=== PATIENT | male | born 1955 | race American Indian/Alaskan Native ===

== ENCOUNTER 2016-12-29 22:16 | Emergency (ER) | payer OTHER ==
[2016-12-29 23:21] LABS: Anion Gap 21 mmol/L; Basophils % (Auto) 0.2 % (0.0-1.8); Blood Urea Nitrogen 16 mg/dL (9-20); Calcium 9.4 mg/dL (8.4-10.2); Carbon Dioxide 23 mmol/L (22-30); Chloride 103.2 mmol/L (98-107); Eosinophils % (Auto) 3.4 % (0.0-4.3); Glucose 111 mg/dL (75-100); Hematocrit 40.1 % (35.5-45.6); Hemoglobin 13.4 gm/dl (11.8-15.2); Mean Corpuscular HGB Conc 33 % (32-34); Mean Corpuscular Hemoglobin 29 pg (28-32); Mean Corpuscular Volume 88 fl (84-94); Platelet Count 313 K/mm3 (140-440); Potassium 3.5 mmol/L (3.6-5.0); Red Blood Count 4.56 M/mm3 (3.65-5.03); Sodium 144 mmol/L (137-145); White Blood Count 8.2 K/mm3 (4.5-11.0)
[2016-12-30] MEDS ORDERED: TORADOL IM ONE (03:26)
[2016-12-30] MEDS ORDERED: NORCO 7.5/325 PO ONE (03:27)
--- NOTE | 2016-12-30 04:22 | Emergency Department Report ---
ED Extremity Problem HPI - General Chief complaint: Extremity Problem,Nontraumatic Stated complaint: LEFT KNEE PAIN/SWOLLEN Time Seen by Provider: 12/30/16 03:23 Source: patient Mode of arrival: Wheelchair Limitations: No Limitations - History of Present Illness Initial comments: 61-year-old -[place] male with a past medical history of hypertension comes in today for complaint of left knee swollen and pain for about 8 days. Patient denies any falls or energy injuries. Patient denies any history of kidney failure. He reports that he has a history of gout and feels that this is flareup. Patient is followed by Dr. Fernanda Araya. Complaint: extremity pain, extremity swelling, joint paint - Related Data Previous Rx's Medication Instructions Recorded Last Taken Type Atenolol [Tenormin] 100 mg PO DAILY #30 tablet 03/27/15 Unknown Rx Lisinopril [Zestril TAB] 40 mg PO QDAY #30 tablet 03/27/15 Unknown Rx amLODIPine [Norvasc] 10 mg PO DAILY #30 tablet 03/27/15 Unknown Rx Indomethacin 50 mg PO Q8H #15 capsule 12/30/16 Unknown Rx Prednisone [predniSONE 5 mg (6-Day 5 mg PO .TAPER #1 tab.ds.pk 12/30/16 Unknown Rx Pack, 21 Tabs)] Allergies Allergy/AdvReac Type Severity Reaction Status Date / Time No Known Allergies Allergy Unverified 03/27/15 12:05 ED Review of Systems ROS: Stated complaint: LEFT KNEE PAIN/SWOLLEN Other details as noted in HPI Constitutional: denies: chills, fever Eyes: denies: eye pain, eye discharge, vision change ENT: denies: ear pain, throat pain Respiratory: denies: cough, shortness of breath, wheezing Cardiovascular: denies: chest pain, palpitations Endocrine: no symptoms reported Gastrointestinal: denies: abdominal pain, nausea, diarrhea Genitourinary: as per HPI Musculoskeletal: joint swelling (left knee), arthralgia (left knee) Skin: denies: rash, lesions Neurological: denies: headache, weakness, paresthesias Psychiatric: denies: anxiety, depression Hematological/Lymphatic: denies: easy bleeding, easy bruising ED Past Medical Hx - Past Medical History Previous Medical History?: Yes Hx Hypertension: Yes - Surgical History Past Surgical History?: No - Social History Smoking Status: Never Smoker Substance Use Type: None - Medications Home Medications: Home Medications Medication Instructions Recorded Confirmed Last Taken Type Atenolol [Tenormin] 100 mg PO DAILY #30 tablet 03/27/15 Unknown Rx Lisinopril [Zestril TAB] 40 mg PO QDAY #30 tablet 03/27/15 Unknown Rx amLODIPine [Norvasc] 10 mg PO DAILY #30 tablet 03/27/15 Unknown Rx Indomethacin 50 mg PO Q8H #15 capsule 12/30/16 Unknown Rx Prednisone [predniSONE 5 mg (6-Day 5 mg PO .TAPER #1 tab.ds.pk 12/30/16 Unknown Rx Pack, 21 Tabs)] ED Physical Exam - General Limitations: No Limitations ED Course Vital Signs 12/29/16 22:34 Temperature 98.7 F Pulse Rate 95 H Respiratory 18 Rate Blood Pressure 164/108 O2 Sat by Pulse 100 Oximetry - Reevaluation(s) Reevaluation #1: 12/30/16 05:17 Reports he feels some relief since having the Toradol injection. ED Medical Decision Making - Lab Data Result diagrams: 12/29/16 22:45 12/29/16 22:45 - Radiology Data Radiology results: report reviewed, image reviewed FINDINGS: There is a small joint effusion. There is advanced degenerative arthrosis of the medial knee compartment and the patellofemoral joint space. There are no fractures or malalignments. There is prepatellar soft tissue swelling. There is no mass. IMPRESSION: There are degenerative changes as described. There is no fracture or malalignment. There is prepatellar soft tissue swelling and a small joint effusion.. Transcribed By: CO Dictated By: LYNNETTE RODRIGUEZ MD Electronically Authenticated By: LYNNETTE RODRIGUEZ MD Signed Date/Time: 12/30/16 0579 - Medical Decision Making Patient has been evaluated by this provider fast track. Discussed patient this is most likely a gout flareup. Also discussed with patient that he has bilateral lower leg edema this also could be a side effect of his medications are Norvasc. Discussed with patient that he needs to speak with his healthcare provider for further evaluation. Also discussed the patient that we would give him a Toradol injection to help with his pain and as well as a [place]. Discussed the patient that we would discharge him on indomethacin 50 mg 1 tablet by mouth 3 times a day when necessary. Discussed with him we will place him on a prednisone taper pack. He is to follow-up with his primary care doctor within 3-5 days. Critical care attestation.: If time is entered above; I have spent that time in minutes in the direct care of this critically ill patient, excluding procedure time. ED Disposition Clinical Impression: Gout attack Qualifiers: Gout site: knee Gout etiology: unspecified cause Laterality: left Qualified Code(s): M10.9 - Gout, unspecified Disposition: DISCHARGED TO HOME OR SELFCARE Is pt being admited?: No Does the pt Need Aspirin: No Condition: Stable Instructions: Acute Gouty Arthritis (ED) Additional Instructions: Please take medication as prescribed. Please follow up with her primary care provider within 3-5 days. Prescriptions: Indomethacin 50 mg PO Q8H #15 capsule Prednisone [predniSONE 5 mg (6-Day Pack, 21 Tabs)] 5 mg PO .TAPER #1 tab.ds.pk Referrals: PRIMARY CARE, [Primary Care Provider] - 3-5 Days Forms: Work/School Release Form(ED), Accompanied Note
[2016-12-30] MEDS ORDERED: DELTASONE PO ONE (04:28)
--- NOTE | 2016-12-30 05:13 | XRay Report ---
FINAL REPORT PROCEDURE: XR KNEE 3V LT TECHNIQUE: Left knee radiographs, AP, lateral and sunrise views. CPT 93894 HISTORY: left knee pain COMPARISON: No prior studies are available for comparison. FINDINGS: There is a small joint effusion. There is advanced degenerative arthrosis of the medial knee compartment and the patellofemoral joint space. There are no fractures or malalignments. There is prepatellar soft tissue swelling. There is no mass. IMPRESSION: There are degenerative changes as described. There is no fracture or malalignment. There is prepatellar soft tissue swelling and a small joint effusion..
[2016-12-30 05:58] VITALS: BP 160/106
== END 2016-12-30 05:30 | disposition home or self-care (01) ==
LOC: ED 22:16
DX: M10.9 Gout, unspecified (principal); I10 Essential (primary) hypertension
CPT/HCPCS: 36415; 73562; 80048; 85025; 96372; 99284; J1885; J7512

== ENCOUNTER 2017-05-18 22:18 | Emergency (ER) | payer OTHER ==
--- NOTE | 2017-05-18 23:32 | XRay Report ---
FINAL REPORT EXAM: XR KNEE 1-2V LT HISTORY: LEFT KNEE PAIN TECHNIQUE: Two views of the left knee PRIORS: None. FINDINGS: There is tricompartmental joint space narrowing. There is subluxation of the femur medially. There is some cortical lucency seen along the lateral aspect of the tibial plateau. Could be overlap of bony structures however fracture is difficult to exclude. If there is clinical concern consider additional oblique and tunnel views which may be helpful for further evaluation. There is small joint effusion present IMPRESSION: Moderate to severe DJD Questionable irregularity at the lateral tibial plateau. If clinical concern additional oblique and tunnel views suggested for further evaluation
[2017-05-19] MEDS ORDERED: TORADOL IM ONE (05:52)
[2017-05-19] MEDS ORDERED: FLEXERIL PO ONE (05:52)
--- NOTE | 2017-05-19 05:54 | Emergency Department Report ---
HPI - General Chief Complaint: Extremity Problem,Nontraumatic Time Seen by Provider: 05/19/17 05:43 - HPI HPI: Patient is a 62-year-old male with a history of arthritis/gout presents to ED complaining of left knee pain 10 days. Patient states he did not fall or have any recent trauma to the leg and knee. ED Past Medical Hx - Past Medical History Previous Medical History?: Yes Hx Hypertension: Yes - Surgical History Past Surgical History?: No - Social History Smoking Status: Never Smoker Substance Use Type: None - Medications Home Medications: Home Medications Medication Instructions Recorded Confirmed Last Taken Type Atenolol [Tenormin] 100 mg PO DAILY #30 tablet 03/27/15 Unknown Rx Lisinopril [Zestril TAB] 40 mg PO QDAY #30 tablet 03/27/15 Unknown Rx amLODIPine [Norvasc] 10 mg PO DAILY #30 tablet 03/27/15 Unknown Rx Prednisone [predniSONE 5 mg (6-Day 5 mg PO .TAPER #1 tab.ds.pk 12/30/16 Unknown Rx Pack, 21 Tabs)] Celecoxib [celeBREX] 50 mg PO BID #30 capsule 05/19/17 Unknown Rx Cyclobenzaprine [Flexeril] 10 mg PO TID PRN #20 tablet 05/19/17 Unknown Rx Indomethacin 50 mg PO Q8H #15 capsule 05/19/17 Unknown Rx ED Review of Systems ROS: Stated complaint: L KNEE SWOLLEN Other details as noted in HPI Constitutional: denies: chills, fever Eyes: denies: eye pain, eye discharge, vision change ENT: denies: ear pain, throat pain Respiratory: denies: cough, shortness of breath, wheezing Cardiovascular: denies: chest pain, palpitations Endocrine: no symptoms reported Gastrointestinal: denies: abdominal pain, nausea, diarrhea Genitourinary: denies: urgency, dysuria Musculoskeletal: denies: back pain, joint swelling, arthralgia Skin: denies: rash, lesions Neurological: denies: headache, weakness, paresthesias Psychiatric: denies: anxiety, depression Hematological/Lymphatic: denies: easy bleeding, easy bruising Physical Exam - Physical Exam Vital Signs: Vital Signs 05/18/17 22:24 Temperature 98.1 F Pulse Rate 74 Respiratory 20 Rate Blood Pressure 168/98 O2 Sat by Pulse 100 Oximetry Physical Exam: GENERAL: Alert and oriented x3, no apparent distress, Normal Gait, atraumatic. HEAD: Head is normocephalic and a-traumatic. NECK: Supple. Non edematous, No carotid bruits. No lymphadenopathy or thyromegaly. No C-spine tenderness LUNGS: Symetrical with respiration, No wheezing, no rales or crackles, CTAB. HEART: S1, S2 present, regular rate and rhythm without murmur, no rubs, no gallops. Non tender to palpation ABDOMEN: No organomegaly was noted,Positive bowel sounds, soft, and non- distended. .Nontender to palpation on all Quadrants, NO CVA tenderness. EXTREMITIES/MUSCULOSKELETAL: No cyanosis, clubbing, rash, lesions or edema. Full ROM bilaterally. Left knee mildly tender to palpation UE/LE Pulses 2+ bilaterally. LE and UE 5+ strength bilaterally, NEUROLOGIC: The patient is cooperative with no focal neurologic deficits. Cranial nerves II through XII are grossly intact. Normal speech. Normal sensation in bilateral upper and lower extremities, No loss of sensation, SKIN: Warm and dry, No lesions, No ulceration or induration present. ED Course Vital Signs 05/18/17 22:24 Temperature 98.1 F Pulse Rate 74 Respiratory 20 Rate Blood Pressure 168/98 O2 Sat by Pulse 100 Oximetry ED Medical Decision Making - Radiology Data Radiology results: report reviewed, image reviewed FINAL REPORT EXAM: XR KNEE 1-2V LT HISTORY: LEFT KNEE PAIN TECHNIQUE: Two views of the left knee PRIORS: None. FINDINGS: There is tricompartmental joint space narrowing. There is subluxation of the femur medially. There is some cortical lucency seen along the lateral aspect of the tibial plateau. Could be overlap of bony structures however fracture is difficult to exclude. If there is clinical concern consider additional oblique and tunnel views which may be helpful for further evaluation. There is small joint effusion present IMPRESSION: Moderate to severe DJD Questionable irregularity at the lateral tibial plateau. If clinical concern additional oblique and tunnel views suggested for further evaluation Critical care attestation.: If time is entered above; I have spent that time in minutes in the direct care of this critically ill patient, excluding procedure time. ED Disposition Clinical Impression: Osteoarthritis Qualifiers: Laterality: left Disposition: DC-01 TO HOME OR SELFCARE Is pt being admited?: No Does the pt Need Aspirin: No Condition: Stable Instructions: Degenerative Disc Disease (ED), Osteoarthritis (ED), Knee Exercises (GEN), Arthralgia (ED) Prescriptions: Celecoxib [celeBREX] 50 mg PO BID #30 capsule Cyclobenzaprine [Flexeril] 10 mg PO TID PRN #20 tablet PRN Reason: Muscle Spasm Indomethacin 50 mg PO Q8H #15 capsule Referrals: PRIMARY CAREMD [Primary Care Provider] - 3-5 Days PIETRO NEGRON MD [Referring] - 3-5 Days [facility] [Outside] - 3-5 Days [facility] [Outside] - 3-5 Days [facility] [Outside] - 3-5 Days Forms: Accompanied Note, Work/School Release Form(ED) Time of Disposition: 05:58
[2017-05-19 06:39] VITALS: BP 158/98
== END 2017-05-19 06:32 | disposition home or self-care (01) ==
LOC: ED 22:18
DX: M17.12 Unilateral primary osteoarthritis, left knee (principal); I10 Essential (primary) hypertension
CPT/HCPCS: 73560; 96372; 99283; J1885

== ENCOUNTER 2019-12-21 19:16 | Inpatient (IN) | payer OTHER ==
[2019-12-21] MEDS ORDERED: SODIUM CHLORIDE 0.9% 1000 ML 1,000 ML ONE ×2 (20:15→23:59)
--- NOTE | 2019-12-21 20:17 | Emergency Department Report ---
ED Shortness of Breath HPI - General Chief Complaint: Dyspnea/Respdistress Stated Complaint: GOUT PAIN Time Seen by Provider: 12/21/19 20:09 Source: patient, EMS Mode of arrival: Stretcher Limitations: No Limitations - History of Present Illness Initial Comments: A 64-year-old male that presents emergency room with complaints of chest pain shortness of breath. Patient states that the chest pain is from the center of his chest radiating to his back. Patient states the chest pain is a 10 out of 10. Pain states is sharp pain. Patient states it is rating to his back. Patient states the chest pain is better with rest and worse with exertion and de ep breath. Patient states that his symptoms started 1 hour ago. Patient denies fever and cough. Patient denies diarrhea. Patient states shortness of breath better with rest and worse with exertion. Patient states he feel like he cannot catch his breath. Patient is also complaining of bilateral knee and foot pain which he states feels like his gout. Patient states that his been going on for months. Patient denies recent travel. Patient denies recent international travel. Patient denies exposure to the novel coronavirus. Patient denies sick contacts. Patient denies fever and chills. Patient denies cough. Patient denies diarrhea. Patient denies coming in contact with anybody with symptoms of the novel coronavirus. MD Complaint: shortness of breath, cough, chest pain -: Sudden Severity: severe Pain Scale: 10 Quality: sharp, stabbing Consistency: constant Improves With: rest Worsens With: exertion Associated Symptoms: chest pain Treatments Prior to Arrival: none - Related Data Home Oxygen Therapy: No Previous Rx's Medication Instructions Recorded Last Taken Type Atenolol [Tenormin] 100 mg PO DAILY #30 tablet 03/27/15 Unknown Rx amLODIPine 10 mg PO DAILY #30 tablet 03/27/15 Unknown Rx lisinopriL [Zestril TAB] 40 mg PO QDAY #30 tablet 03/27/15 Unknown Rx Prednisone [predniSONE 5 mg (6-Day 5 mg PO .TAPER #1 tab.ds.pk 12/30/16 Unknown Rx Pack, 21 Tabs)] Celecoxib [celeBREX] 50 mg PO BID #30 capsule 05/19/17 Unknown Rx Cyclobenzaprine [Flexeril] 10 mg PO TID PRN #20 tablet 05/19/17 Unknown Rx Indomethacin 50 mg PO Q8H #15 capsule 05/19/17 Unknown Rx Allergies Allergy/AdvReac Type Severity Reaction Status Date / Time No Known Allergies Allergy Unverified 03/27/15 12:05 ED Review of Systems ROS: Stated complaint: GOUT PAIN Other details as noted in HPI Constitutional: denies: chills, fever Eyes: denies: eye pain, eye discharge, vision change ENT: denies: ear pain, throat pain Respiratory: shortness of breath, SOB with exertion, SOB at rest. denies: cough, wheezing Cardiovascular: chest pain, palpitations, dyspnea on exertion Endocrine: no symptoms reported Gastrointestinal: denies: abdominal pain, nausea, diarrhea Genitourinary: denies: urgency, dysuria Musculoskeletal: denies: back pain, joint swelling, arthralgia Skin: denies: rash, lesions Neurological: denies: headache, weakness, paresthesias Psychiatric: denies: anxiety, depression Hematological/Lymphatic: denies: easy bleeding, easy bruising ED Past Medical Hx - Past Medical History Hx Hypertension: Yes Additional medical history: gout - Surgical History Past Surgical History?: No - Family History Family history: no significant - Social History Smoking Status: Never Smoker Substance Use Type: None - Medications Home Medications: Home Medications Medication Instructions Recorded Confirmed Last Taken Type Atenolol [Tenormin] 100 mg PO DAILY #30 tablet 03/27/15 Unknown Rx amLODIPine 10 mg PO DAILY #30 tablet 03/27/15 Unknown Rx lisinopriL [Zestril TAB] 40 mg PO QDAY #30 tablet 03/27/15 Unknown Rx Prednisone [predniSONE 5 mg (6-Day 5 mg PO .TAPER #1 tab.ds.pk 12/30/16 Unknown Rx Pack, 21 Tabs)] Celecoxib [celeBREX] 50 mg PO BID #30 capsule 05/19/17 Unknown Rx Cyclobenzaprine [Flexeril] 10 mg PO TID PRN #20 tablet 05/19/17 Unknown Rx Indomethacin 50 mg PO Q8H #15 capsule 05/19/17 Unknown Rx ED Physical Exam - General Limitations: No Limitations General appearance: alert, in distress - Head Head exam: Present: atraumatic, normocephalic - Eye Eye exam: Present: normal appearance, PERRL Pupils: Present: normal accommodation - ENT ENT exam: Present: mucous membranes dry - Neck Neck exam: Present: normal inspection - Respiratory Respiratory exam: Present: respiratory distress, accessory muscle use, decreased breath sounds - Cardiovascular Cardiovascular Exam: Present: regular rate, normal rhythm. Absent: systolic murmur, diastolic murmur, rubs, gallop - GI/Abdominal GI/Abdominal exam: Present: soft, normal bowel sounds. Absent: distended, tenderness - Rectal Rectal exam: Present: deferred - Extremities Exam Extremities exam: Present: normal inspection - Back Exam Back exam: Present: normal inspection - Neurological Exam Neurological exam: Present: alert, oriented X3 - Psychiatric Psychiatric exam: Present: normal affect, normal mood - Skin Skin exam: Present: warm, dry, intact, normal color. Absent: rash ED Course Vital Signs 12/21/19 12/21/19 19:42 20:20 Temperature 97.7 F Pulse Rate 128 H Respiratory 26 H 26 H Rate Blood Pressure 113/81 O2 Sat by Pulse 92 98 Oximetry - Reevaluation(s) Reevaluation #1: Initial evaluation done. Patient found to be hypoxic, hypotensive and tachycardic. Patient given fluids. 12/21/19 20:09 Reevaluation #2: Patient's blood pressure improved with saline bolus. Patient's heart rate is improving. Patient's saturation has improved with 4 L of oxygen. Patient is already been given aspirin. 12/21/19 20:30 Reevaluation #3: Patient back from CT. CTA is pending. 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 Patient states she still having chest pain. 12/21/19 21:30 Reevaluation #4: CT positive for large pulmonary embolisms along with right heart strain. Patient will be started on a heparin drip with a heparin bolus. Patient states he still having chest pain. Patient will be given 1 mg morphine. 12/21/19 21:59 Reevaluation #5: I discussed all results with patient. I discussed plan of care with patient. Patient agrees with plan of care and admission. Patient to be admitted to the hospitalist service. 12/21/19 22:32 - Consultations Consultation #1: I discussed case labs with Dr. Joyce, fur storage clerk. Dr. Joyce states this is an end STEMI and there is no STEMI on the EKG. Dr. Joyce agrees with CTA of the chest and heparinizing the patient. 12/21/19 21:28 Consultation #2: I discussed case with Dr. Hernandez, vascular surgery. Dr. Hernandez states he will come see the patient. 12/21/19 22:23 Consultation #3: Hospitalist consulted for admission. Hospitalist to admit patient. 12/21/19 22:32 ED Medical Decision Making - Lab Data Result diagrams: 12/21/19 20:29 12/21/19 20:29 - EKG Data -: EKG Interpreted by Me EKG shows normal: sinus rhythm, axis, intervals, QRS complexes, ST-T waves Rate: tachycardia - EKG Data Interpretation: other (PVCs noted in a pattern of bigeminy and trigeminy) - Radiology Data Radiology results: report reviewed, image reviewed interpreted by me: CHEST 1 VIEW INDICATION / CLINICAL INFORMATION: Chest Pain. COMPARISON: None available. FINDINGS: SUPPORT DEVICES: None. HEART / MEDIASTINUM: Mild cardiomegaly. LUNGS / PLEURA: No significant pulmonary or pleural abnormality. No pneumothorax. IMPRESSION: Mild cardiomegaly. The lungs are clear. CTA CHEST WITH IV CONTRAST INDICATION / CLINICAL INFORMATION: Chest pain and shortness of breath. TECHNIQUE: Axial CT images were obtained through the chest after injection of 60 mL Omnipaque 350 IV contrast. 3 plane MIP and/or 3D reconstructions were produced. All CT scans at this location are performed using CT dose reduction for ALARA by means of automated exposure control. COMPARISON: Chest radiograph from earlier today FINDINGS: PULMONARY ARTERIES: Massive bilateral pulmonary emboli branching from the right and left main pulmonary arteries into all lobar arteries and multiple segmental and subsegmental branches. THORACIC AORTA: No significant abnormality. HEART: Normal heart size. RV/LV ratio is greater than 1 and the right atrium is mildly dilated, suggestive of acute right heart strain. CORONARY ARTERIES: No significant calcification. PLEURA: No pleural effusion. No pneumothorax. LYMPH NODES: No adenopathy. LUNGS: No acute air space or interstitial disease. ADDITIONAL FINDINGS: None. UPPER ABDOMEN: Multiple renal cystic lesions, some incompletely imaged. Nono bstructing calculus in a lower pole calyx of the right kidney. Mild peripancreatic stranding around the head, poorly demonstrated on this exam due to coronary angiographic phase of image acquisiti on. Gallbladder wall appears thickened, but there is no abnormal distention. No calcified gallston es. SKELETAL STRUCTURES: No significant osseous abnormality. IMPRESSION: 1. Massive acute bilateral pulmonary thromboembolism with CT evidence of right heart strain. 2. Mild stranding around the peripancreatic head, nonspecific, but correlation with serum lipase is recommended. 3. Nonobstructing right renal calculus at the lower pole. CT ABDOMEN AND PELVIS WITHOUT CONTRAST INDICATION: History of pulmonary embolism. Abnormal pancreatic enzymes. Abdominal pain. TECHNICAL: Multiple axial CT images of the abdomen and pelvis were acquired without intravenous contrast. Sagittal and coronal reformats were obtained. All CTs at this facility utilize dose reduction techniques including automated exposure control, iterative reconstruction and weight based dosing when appropriate to reduce patient radiation dose to as low as reasonable achievable. COMPARISON: CTA of the chest, 12/21/2019 FINDINGS: Limited imaging of the bilateral lung bases demonstrates no focal abnormality. The base of the heart is enlarged. Abdomen: There is moderate generalized peripancreatic inflammatory stranding the gallbladder is difficult to assess on today's noncontrast study, however, there is suspicion of inflammatory c hanges extending to the gallbladder fossa. Within the limitations of today's noncontrast study, the liver, spleen and bilateral kidneys show no evidence of acute abnormality. There are numerous bilateral renal cysts. The abdominal aorta appears normal in caliber with minimal scattered atherosclerotic calcified. The small and large bowel are normal in caliber. There is no evidence of bowel obstruction. The appendix is visualized and appears normal. Pelvis: There is a small to moderate amount of free fluid within the office. Moderate sigmoid diverticulosis is noted without definitive evidence for diverticulitis. The urinary bladder appears normal. There is a trace amount of contrast material within the urinary bladder from recent contrasted study. Bones and Soft Tissues: Evaluation of bony structures demonstrates advanced degenerative changes of the left hip and the thoracolumbar spine. Evaluation of soft tissue structures demonstrates no acute soft tissue abnormality. IMPRESSION: 1. Moderate peripancreatic inflammatory changes concerning for pancreatitis. There is also suggestion of gallbladder wall thickening and inflammatory change. While this could be secondary to pancreatitis, it would be difficult to exclude the possibility of acute cholecystitis. No radiodense gallstones are visualized. 2. Small to moderate amount of free pelvic fluid 3. Sigmoid diverticulosis. 4. Multiple renal cysts. - Medical Decision Making Patient is a 64-year-old male that presents emergency room with complaints of chest pain or shortness of breath. Patient's chest pain is radiating to his back. On initial evaluation patient was found to be hypoxic, hypotensive and tachycardic. Patient was given fluids and his blood pressure responded well. Patient placed on nasal cannula oxygen his oxygenation improved. Patient's heart rate improved with fluids. Due to the patient's clinical situation I consulted cardiology early in his ER stay and cardiology recommends medical management and no STEMI on EKG. Patient then had a CTA of the chest. CTA is negative for any dissection but is positive for large pulmonary embolisms with right heart strain. Incidental findings on the CTA of the chest showed pancreatic abnormality and thickening of the gallbladder, so a CT of the abdomen was done. I then consulted vascular surgery and Dr. Hernandez states he is going to call him to see the patient. Patient had several abnormalities on his labs to include elevated troponin, acute renal failure, lactic acidosis. Patient was placed on a heparin drip and a heparin bolus. Patient EKG shows sinus tachycardia, no STEMI, PVCs and a trigeminy and bigeminy pattern. Patient's chest x-ray shows no acute findings of her mild cardiomegaly. CT of the abdomen shows pancreatitis and gallbladder thickening. Patient admitted to the hospitalist service and into the ICU. Patient will go to the ICU after patient has a cath by vascular surgery. - Differential Diagnosis PE, dissection, and STEMI, chest pain, S OB, hypoxia, low BP Critical Care Time: Yes Critical care time in (mins) excluding proc time.: 35 Critical care attestation.: If time is entered above; I have spent that time in minutes in the direct care of this critically ill patient, excluding procedure time. Critical Care Time: 35 minutes ED Disposition Clinical Impression: Hypoxia, Tachycardia, SOB (shortness of breath), Elevated troponin, Lactic acid acidosis, Thickening of wall of gallbladder Hypotension Qualifiers: Hypotension type: unspecified hypotension type Qualified Code(s): I95.9 - Hypotension, unspecified Chest pain Qualifiers: Chest pain type: unspecified Qualified Code(s): R07.9 - Chest pain, unspecified Pulmonary emboli Qualifiers: Pulmonary embolism type: unspecified Chronicity: acute Acute cor pulmonale presence: with acute cor pulmonale Qualified Code(s): I26.09 - Other pulmonary embolism with acute cor pulmonale Acute renal failure Qualifiers: Acute renal failure type: unspecified Qualified Code(s): N17.9 - Acute kidney failure, unspecified Pancreatitis Qualifiers: Chronicity: acute Pancreatitis type: unspecified pancreatitis type Acute pancreatitis complication: no infection or necrosis Qualified Code(s): K85.90 - Acute pancreatitis without necrosis or infection, unspecified Disposition: DC-[id number] OP ADMIT IP TO THIS HOSP Is pt being admited?: Yes Does the pt Need Aspirin: No Condition: Critical Time of Disposition: 22:32
[2019-12-21] MEDS ORDERED: ASPIRIN 325 MG TAB PO ONE (20:19)
[2019-12-21] MEDS ORDERED: SODIUM CHLORIDE 0.9% 1000 ML 1,000 ML IV ONE (20:19)
[2019-12-21] MEDS ORDERED: SODIUM CHLORIDE 0.9% 1000 ML IV SOLN IV ONE (20:28)
[2019-12-21] MEDS ORDERED: CEFEPIME/NS 2 GM/100 ML 2 GM/100 ML BAG IV ONE (20:29)
[2019-12-21 20:48] LABS: Basophils % (Auto) 0.1 % (0.0-1.8); Eosinophils % (Auto) 0.1 % (0.0-4.3); Hematocrit 36.7 % (35.5-45.6); Hemoglobin 11.5 gm/dl (11.8-15.2); Lymphocytes # (Auto) 1.7 K/mm3 (1.2-5.4); Lymphocytes % (Auto) 14.2 % (13.4-35.0); Mean Corpuscular HGB Conc 31 % (32-34); Mean Corpuscular Volume 89 fl (84-94); Monocytes # (Auto) 0.5 K/mm3 (0.0-0.8); Monocytes % (Auto) 4.5 % (0.0-7.3); Platelet Count 235 K/mm3 (140-440); Red Blood Count 4.11 M/mm3 (3.65-5.03); Red Cell Distribution Width 16.9 % (13.2-15.2)
[2019-12-21 21:00] LABS: Partial Thromboplastin Time 27.6 Sec. (24.2-36.6)
[2019-12-21 21:11] LABS: Albumin 3.6 g/dL (3.9-5); Calcium 9.4 mg/dL (8.4-10.2)
--- NOTE | 2019-12-21 21:36 | XRay Report ---
CHEST 1 VIEW INDICATION / CLINICAL INFORMATION: Chest Pain. COMPARISON: None available. FINDINGS: SUPPORT DEVICES: None. HEART / MEDIASTINUM: Mild cardiomegaly. LUNGS / PLEURA: No significant pulmonary or pleural abnormality. No pneumothorax. IMPRESSION: Mild cardiomegaly. The lungs are clear. Signer Name: Paul Fallon MD Signed: 12/21/2019 9:31 PM Workstation Name: [id number]
[2019-12-21] MEDS ORDERED: HEPARIN 10,000 UNITS/10 ML VIAL IV ONE (21:57)
[2019-12-21] MEDS ORDERED: MORPHINE 2 MG/1 ML INJ IV ONE (21:59)
[2019-12-21] MEDS ORDERED: HEPARIN/ 0.45% NACL DRIP 25,000 UNIT/500 ML BAG IV SCH (22:00)
--- NOTE | 2019-12-21 22:04 | Cat Scan Report ---
CTA CHEST WITH IV CONTRAST INDICATION / CLINICAL INFORMATION: Chest pain and shortness of breath. TECHNIQUE: Axial CT images were obtained through the chest after injection of 60 mL Omnipaque 350 IV contrast. 3 plane MIP and/or 3D reconstructions were produced. All CT scans at this location are performed using CT dose reduction for ALARA by means of automated exposure control. COMPARISON: Chest radiograph from earlier today FINDINGS: PULMONARY ARTERIES: Massive bilateral pulmonary emboli branching from the right and left main pulmona ry arteries into all lobar arteries and multiple segmental and subsegmental branches. THORACIC AORTA: No significant abnormality. HEART: Normal heart size. RV/LV ratio is greater than 1 and the right atrium is mildly dilated, sugge stive of acute right heart strain. CORONARY ARTERIES: No significant calcification. PLEURA: No pleural effusion. No pneumothorax. LYMPH NODES: No adenopathy. LUNGS: No acute air space or interstitial disease. ADDITIONAL FINDINGS: None. UPPER ABDOMEN: Multiple renal cystic lesions, some incompletely imaged. Nonobstructing calculus in a lower pole calyx of the right kidney. Mild peripancreatic stranding around the head, poorly demonstra weston on this exam due to coronary angiographic phase of image acquisition. Gallbladder wall appears th ickened, but there is no abnormal distention. No calcified gallstones. SKELETAL STRUCTURES: No significant osseous abnormality. IMPRESSION: 1. Massive acute bilateral pulmonary thromboembolism with CT evidence of right heart strain. 2. Mild stranding around the peripancreatic head, nonspecific, but correlation with serum lipase is recommended. 3. Nonobstructing right renal calculus at the lower pole. I discussed the critical findings with the referring physician Dr. Alvarado at the time of dictation. Signer Name: Paul Fallon MD Signed: 12/21/2019 10:00 PM Workstation Name: [id number]
[2019-12-21 22:10] LABS: INR 1.36 (0.87-1.13)
[2019-12-21] MEDS ORDERED: ONDANSETRON 4 MG/2 ML INJ IV PRN ×2 (23:12→23:44)
[2019-12-21] MEDS ORDERED: ACETAMINOPHEN 325 MG TAB PO PRN (23:12)
[2019-12-21] MEDS ORDERED: MORPHINE 2 MG/1 ML INJ IV PRN ×2 (23:12→23:44)
--- NOTE | 2019-12-21 23:14 | History and Physical Report ---
History of Present Illness History of present illness: 64-year-old man with a history of hypertension, gout comes emergency room with acute onset of shortness of breath today. Upon arrival he was complaining of chest pain to the emergency room physician however he denies having chest pain. He complains of abdominal pain in his mid abdomen which he describes as a dull pain, intermittent every 5 minutes, intensity 6/10, no radiation admits to nausea, no vomiting, diarrhea, fever, chills. He states that since October his legs have been swollen and painful, he saw his primary care physician and was given medication for symptoms but he cannot recall the name. He denies weight loss, recent travel, surgery, positive sedentary lifestyle. Patient was found to have massive pulmonary emboli for which he will be admitted for, vascular evaluation is pending Review Of Systems: Constitutional: no weight loss, fever, chills Ears, eyes, nose, mouth and throat: no nasal congestion, no nasal discharge, no sinus pressure, blurry vision, diplopia Neck: No neck pain or rigidity. Cardiovascular: No palpitations, chest pain Respiratory: No cough Gastrointestinal: No hematochezia Genitourinary : no dysuria, frequency Musculoskeletal: no muscle ache , joint pain Integumentary: no rash, no pruritis Neurological: no parathesias, focal weakness Endocrine: no cold or heat intolerance, no polyuria or polydipsia Hematologic/Lymphatic: no easy bruising, no easy bleeding, no gland swelling Allergic/Immunologic: no urticaria, no angioedema. PAST MEDICAL HISTORY: hypertension, gout PAST SURGICAL HISTORY: None SOCIAL HISTORY: Denies alcohol, tobacco, drugs FAMILY HISTORY: Hypertension Medications and Allergies Allergies Allergy/AdvReac Type Severity Reaction Status Date / Time No Known Allergies Allergy Unverified 03/27/15 12:05 Home Medications Medication Instructions Recorded Confirmed Last Taken Type Atenolol [Tenormin] 100 mg PO DAILY #30 tablet 03/27/15 12/22/19 Unknown Rx amLODIPine 10 mg PO DAILY #30 tablet 03/27/15 12/22/19 Unknown Rx lisinopriL [Zestril TAB] 40 mg PO QDAY #30 tablet 03/27/15 12/22/19 Unknown Rx Prednisone [predniSONE 5 mg (6-Day 5 mg PO .TAPER #1 tab.ds.pk 12/30/16 12/22/19 Unknown Rx Pack, 21 Tabs)] Celecoxib [celeBREX] 50 mg PO BID #30 capsule 05/19/17 12/22/19 Unknown Rx Cyclobenzaprine [Flexeril] 10 mg PO TID PRN #20 tablet 05/19/17 12/22/19 Unknown Rx Indomethacin 50 mg PO Q8H #15 capsule 05/19/17 12/22/19 Unknown Rx Active Meds: Active Medications Heparin Sodium/Sodium Chloride (Heparin/ 0.45% Nacl-25,000 Unit/500 Ml) 25,000 unit in 500 mls @ 30 mls/hr IV TITR ANGEL; Protocol Last Admin: 12/21/19 22:15 Dose: 1,500 units/hr, 30 mls/hr Documented by: Exam - Physical Exam Narrative exam: Gen. appearance: Patient lying in bed, no apparent distress HEENT: Normocephalic, atraumatic, pupils equally round and reactive to light, extraocular movement intact, and no sclericterus,. No JVD or thyromegaly or nodule,neck supple, no carotid bruit ,mucous membranes moist, no exudate or er ythema Heart: S1, S2, regular rate and rhythm Lungs: Clear bilaterally, breathing comfortable Abdomen: Positive bowel sounds, nontender, nondistended, no organomegaly Extremity: Tender to touch, swollen, no edema, cyanosis, clubbing Skin: No rash, nodules, warm, dry Neuro: Cranial nerves II to XII intact, speech is fluent, moves extremities, sensory intact - Constitutional Vitals: Temp Pulse Resp BP Pulse Ox 97.7 F 128 H 26 H 113/81 98 12/21/19 19:42 12/21/19 19:42 12/21/19 20:20 12/21/19 19:42 12/21/19 20:20 HEART Score - HEART Score Troponin: Troponin T 0.241 ng/mL (0.00-0.029) H* 12/21/19 20:29 Results - Labs CBC & Chem 7: 12/23/19 02:30 12/23/19 02:30 Labs: Abnormal lab results 12/21/19 12/21/19 12/21/19 Range/Units 20:19 20:29 20:29 WBC 12.1 H (4.5-11.0) K/mm3 Hgb 11.5 L (11.8-15.2) gm/dl MCHC 31 L (32-34) % RDW 16.9 H (13.2-15.2) % Seg Neutrophils % 81.1 H (40.0-70.0) % Seg Neutrophils # 9.8 H (1.8-7.7) K/mm3 PT (12.2-14.9) Sec. INR (0.87-1.13) D-Dimer > 83881 H (0-234) ng/mlDDU Potassium (3.6-5.0) mmol/L Carbon Dioxide (22-30) mmol/L Creatinine (0.8-1.5) mg/dL Glucose (75-100) mg/dL POC Glucose 232 H (70-105) Lactic Acid (0.7-2.0) mmol/L Alkaline Phosphatase (35-129) units/L Troponin T (0.00-0.029) ng/mL Albumin (3.9-5) g/dL HDL Cholesterol (40-59) mg/dL 12/21/19 12/21/19 12/21/19 Range/Units 20:29 20:29 20:36 WBC (4.5-11.0) K/mm3 Hgb (11.8-15.2) gm/dl MCHC (32-34) % RDW (13.2-15.2) % Seg Neutrophils % (40.0-70.0) % Seg Neutrophils # (1.8-7.7) K/mm3 PT 16.5 H (12.2-14.9) Sec. INR 1.36 H (0.87-1.13) D-Dimer (0-234) ng/mlDDU Potassium 3.3 L (3.6-5.0) mmol/L Carbon Dioxide 16 L (22-30) mmol/L Creatinine 2.1 H (0.8-1.5) mg/dL Glucose 292 H (75-100) mg/dL POC Glucose (70-105) Lactic Acid 7.80 H* (0.7-2.0) mmol/L Alkaline Phosphatase 178 H (35-129) units/L Troponin T 0.241 H* (0.00-0.029) ng/mL Albumin 3.6 L (3.9-5) g/dL HDL Cholesterol 27 L (40-59) mg/dL - Imaging and Cardiology EKG: image reviewed CT scan - chest: report reviewed Assessment and Plan Assessment Massive pulmonary emboli with right heart strain Continue heparin drip, vascular to evaluate the patient for EKOS check Doppler of the lower extremities, IV morphine Abdominal pain Check CT abdomen and pelvis SIRS Start empiric antibiotics, follow cultures Acute renal failure Start IV fluid, monitor kidney function, consult renal Abnormal cardiac enzymes, consult cardiology History of hypertension stable DVT prophylaxis
[2019-12-21] MEDS ORDERED: SODIUM CHLORIDE 0.9% 1000 ML 1,000 ML IV SCH ×2 (23:15→23:45)
[2019-12-21] MEDS ORDERED: HEPARIN/NS 5000 UNIT/500ML 1,000 ML IR ONE (23:21)
[2019-12-21] MEDS ORDERED: LIDOCAINE 1%/EPINEPHRINE 1:100,000 VIAL (20 ML) INFILTRATI ONE (23:21)
[2019-12-21] MEDS ORDERED: MIDAZOLAM 2 MG/2 ML INJ ONE (23:22)
[2019-12-21] MEDS ORDERED: fentaNYL 100 MCG/2 ML INJ ONE (23:22)
[2019-12-21] MEDS ORDERED: MORPHINE 4 MG/1 ML INJ IV PRN (23:44)
[2019-12-21] MEDS ORDERED: SODIUM CHLORIDE 0.9% 1000 ML 1,000 ML SHEATH SCH (23:45)
[2019-12-21] MEDS ORDERED: SODIUM CHLORIDE 0.9% 1000 ML 1,000 ML EKOSCLUMEN SCH ×2 (23:45)
--- NOTE | 2019-12-21 23:46 | Cat Scan Report ---
CT ABDOMEN AND PELVIS WITHOUT CONTRAST INDICATION: History of pulmonary embolism. Abnormal pancreatic enzymes. Abdominal pain. TECHNICAL: Multiple axial CT images of the abdomen and pelvis were acquired without intravenous contr ast. Sagittal and coronal reformats were obtained. All CTs at this facility utilize dose reduction techniques including automated exposure control, iterative reconstruction and weight based dosing whe n appropriate to reduce patient radiation dose to as low as reasonable achievable. COMPARISON: CTA of the chest, 12/21/2019 FINDINGS: Limited imaging of the bilateral lung bases demonstrates no focal abnormality. The base of the heart is enlarged. Abdomen: There is moderate generalized peripancreatic inflammatory stranding the gallbladder is diffi cult to assess on today's noncontrast study, however, there is suspicion of inflammatory changes exte nding to the gallbladder fossa. Within the limitations of today's noncontrast study, the liver, splee n and bilateral kidneys show no evidence of acute abnormality. There are numerous bilateral renal cys ts. The abdominal aorta appears normal in caliber with minimal scattered atherosclerotic calcified. T he small and large bowel are normal in caliber. There is no evidence of bowel obstruction. The append ix is visualized and appears normal. Pelvis: There is a small to moderate amount of free fluid within the office. Moderate sigmoid diverti culosis is noted without definitive evidence for diverticulitis. The urinary bladder appears normal. There is a trace amount of contrast material within the urinary bladder from recent contrasted study. Bones and Soft Tissues: Evaluation of bony structures demonstrates advanced degenerative changes of the left hip and the thoracolumbar spine. Evaluation of soft tissue structures demonstrates no acute soft tissue abnormality. IMPRESSION: 1. Moderate peripancreatic inflammatory changes concerning for pancreatitis. There is also suggestion of gallbladder wall thickening and inflammatory change. While this could be secondary to pancreatiti s, it would be difficult to exclude the possibility of acute cholecystitis. No radiodense gallstones are visualized. 2. Small to moderate amount of free pelvic fluid 3. Sigmoid diverticulosis. 4. Multiple renal cysts. Signer Name: Melony Gastelum MD Signed: 12/21/2019 11:42 PM Workstation Name: [id number]
--- NOTE | 2019-12-21 23:56 | Consultation ---
History of Present Illness - Reason for Consult Consult date: 12/21/19 Bilateral Pulmonary Emboli Requesting physician: GOMEZ LAI III - History of Present Illness The patient is a 64-year-old male who presented to the emergency department with complaints of shortness of breath and chest pain that he states began shortly after he got out of the shower tonight. He denies any previous episodes of shortness of breath or chest pain of this nature in the past. He states that the chest pain was substernal and the shortness of breath was sudden and he believed it would resolve however after several hours when it did not resolve he presented to the emergency department. His work-up included a CTA of his chest revealing large bilateral pulmonary emboli. He has no history of a hypercoagulable disorder. He denies any recent surgery, recent travel, or recen t history of weight loss. He states that he has had a decrease in his activity and spent more time in bed over the past 6 weeks secondary to the coronavirus outbreak and being furloughed at his job at [employer] as well as having pain in bilateral feet. He also has bilateral lower extremity swelling that he states improves with elevation and this has been occurring for some time but has worsened over the past 6 weeks. He has no additional complaints at this time. Past History Past Medical History: hypertension, other (Gout) Past Surgical History: No surgical history Social history: no significant social history Medications and Allergies Allergies Allergy/AdvReac Type Severity Reaction Status Date / Time No Known Allergies Allergy Unverified 03/27/15 12:05 Home Medications Medication Instructions Recorded Confirmed Last Taken Type Atenolol [Tenormin] 100 mg PO DAILY #30 tablet 03/27/15 Unknown Rx amLODIPine 10 mg PO DAILY #30 tablet 03/27/15 Unknown Rx lisinopriL [Zestril TAB] 40 mg PO QDAY #30 tablet 03/27/15 Unknown Rx Prednisone [predniSONE 5 mg (6-Day 5 mg PO .TAPER #1 tab.ds.pk 12/30/16 Unknown Rx Pack, 21 Tabs)] Celecoxib [celeBREX] 50 mg PO BID #30 capsule 05/19/17 Unknown Rx Cyclobenzaprine [Flexeril] 10 mg PO TID PRN #20 tablet 05/19/17 Unknown Rx Indomethacin 50 mg PO Q8H #15 capsule 10/19/17 Unknown Rx Active Meds: Active Medications Acetaminophen (Tylenol) 650 mg PO Q4H PRN PRN Reason: Pain MILD(1-3)/Fever >100.5/VICENTE Acetaminophen/Hydrocodone Bitart ([place] 5/325) 2 each PO Q6H PRN PRN Reason: Pain, Moderate (4-6) Heparin Sodium/Sodium Chloride (Heparin/ 0.45% Nacl-25,000 Unit/500 Ml) 25,000 unit in 500 mls @ 30 mls/hr IV TITR ANGEL; Protocol Last Admin: 12/21/19 22:15 Dose: 1,500 units/hr, 30 mls/hr Documented by: Sodium Chloride (Nacl 0.9% 1000 Ml) 1,000 mls @ 150 mls/hr IV DIRECT ANGEL Sodium Chloride (Nacl 0.9% 1000 Ml) 1,000 mls @ 30 mls/hr IV DIRECT ANGEL Alteplase, Recombinant 10 mg/ (Sodium Chloride) 250 mls @ 10 mls/hr EKOSDLUMEN DIRECT ANGEL Alteplase, Recombinant 10 mg/ (Sodium Chloride) 250 mls @ 10 mls/hr IV DIRECT ANGEL Sodium Chloride (Nacl 0.9% 1000 Ml) 1,000 mls @ 30 mls/hr SHEATH DIRECT ANGEL Sodium Chloride (Nacl 0.9% 1000 Ml) 1,000 mls @ 35 mls/hr EKOSCLUMEN DIRECT ANGEL Sodium Chloride (Nacl 0.9% 1000 Ml) 1,000 mls @ 30 mls/hr SHEATH DIRECT ANGEL Sodium Chloride (Nacl 0.9% 1000 Ml) 1,000 mls @ 35 mls/hr EKOSCLUMEN DIRECT ANGEL Heparin Sodium/Sodium Chloride (Heparin/ 0.45% Nacl-25,000 Unit/500 Ml) 25,000 unit in 500 mls @ 10 mls/hr SHEATH DIRECT ANGEL; Protocol Heparin Sodium/Sodium Chloride (Heparin/ 0.45% Nacl-25,000 Unit/500 Ml) 25,000 unit in 500 mls @ 10 mls/hr SHEATH DIRECT ANGEL; Protocol Morphine Sulfate (Morphine) 2 mg IV Q4H PRN PRN Reason: Pain, Moderate (4-6) Morphine Sulfate (Morphine) 4 mg IV Q4H PRN PRN Reason: Pain , Severe (7-10) Morphine Sulfate (Morphine) 2 mg IV Q4H PRN PRN Reason: Pain, Moderate (4-6) Ondansetron HCl (Zofran) 4 mg IV Q8H PRN PRN Reason: Nausea And Vomiting Ondansetron HCl (Zofran) 4 mg IV Q8H PRN PRN Reason: Nausea And Vomiting Sodium Chloride (Sodium Chloride Flush Syringe 10 Ml) 10 ml IV BID ANGEL Sodium Chloride (Sodium Chloride Flush Syringe 10 Ml) 10 ml IV PRN PRN PRN Reason: LINE FLUSH Review of Systems All systems: negative Exam - Constitutional Vitals: Temp Pulse Resp BP Pulse Ox 97.7 F 128 H 26 H 113/81 98 12/21/19 19:42 12/21/19 19:42 12/21/19 20:20 12/21/19 19:42 12/21/19 20:20 General appearance: Present: no acute distress - Neck Neck: Present: supple - Respiratory Respiratory effort: accessory muscle use (Using some accessory muscles to breathe and having difficulty completing his sentences secondary to shortness of breath.) - Extremities Extremities: pulses intact (Femoral pulses intact) Extremity abnormal: edema (Bilateral lower extremity edema with right greater than left with evidence of mixed venous and lymphedema), pulses diminished (No palpable pedal pulses) - Abdominal General gastrointestinal: Present: soft, non-tender, non-distended Male genitourinary: Present: deferred - Rectal Rectal Exam: deferred Results - Labs CBC & Chem 7: 12/21/19 20:29 12/21/19 20:29 Labs: Abnormal lab results 12/21/19 12/21/19 12/21/19 Range/Units 20:19 20:29 20:29 WBC 12.1 H (4.5-11.0) K/mm3 Hgb 11.5 L (11.8-15.2) gm/dl MCHC 31 L (32-34) % RDW 16.9 H (13.2-15.2) % Seg Neutrophils % 81.1 H (40.0-70.0) % Seg Neutrophils # 9.8 H (1.8-7.7) K/mm3 PT (12.2-14.9) Sec. INR (0.87-1.13) D-Dimer > 77744 H (0-234) ng/mlDDU Potassium (3.6-5.0) mmol/L Carbon Dioxide (22-30) mmol/L Creatinine (0.8-1.5) mg/dL Glucose (75-100) mg/dL POC Glucose 232 H (70-105) Lactic Acid (0.7-2.0) mmol/L Alkaline Phosphatase (35-129) units/L Troponin T (0.00-0.029) ng/mL Albumin (3.9-5) g/dL HDL Cholesterol (40-59) mg/dL 12/21/19 12/21/19 12/21/19 Range/Units 20:29 20:29 20:36 WBC (4.5-11.0) K/mm3 Hgb (11.8-15.2) gm/dl MCHC (32-34) % RDW (13.2-15.2) % Seg Neutrophils % (40.0-70.0) % Seg Neutrophils # (1.8-7.7) K/mm3 PT 16.5 H (12.2-14.9) Sec. INR 1.36 H (0.87-1.13) D-Dimer (0-234) ng/mlDDU Potassium 3.3 L (3.6-5.0) mmol/L Carbon Dioxide 16 L (22-30) mmol/L Creatinine 2.1 H (0.8-1.5) mg/dL Glucose 292 H (75-100) mg/dL POC Glucose (70-105) Lactic Acid 7.80 H* (0.7-2.0) mmol/L Alkaline Phosphatase 178 H (35-129) units/L Troponin T 0.241 H* (0.00-0.029) ng/mL Albumin 3.6 L (3.9-5) g/dL HDL Cholesterol 27 L (40-59) mg/dL - Imaging and Cardiology CT scan - chest: image reviewed CT scan - pelvis: image reviewed Assessment and Plan The patient is a 64-year-old male with a history of gout who presented with shortness of breath and chest pain. He was found to have large bilateral pulmonary emboli with evidence of right heart strain on CT. In addition to the right heart strain he has troponin leak with an initial presentation of tachycardia and decrease oxygen saturation. These are all indications for pulmonary artery thrombolysis. The patient denies a history of recent surgery, gastrointestinal bleeding, hemoptysis, or hematemesis. His CT of the abdomen pelvis demonstrates some stranding around the pancreas however this there is no obvious signs of hemorrhage. His creatinine is elevated however given his elevated lactic acid, elevated serum sodium, and decreased bicarbonate it is likely a contraction alkalosis and will improve with intravenous fluids. I discussed the risk, benefits, and alternative procedures with the patient and he has expressed understanding and agrees to proceed.
[2019-12-22] MEDS ORDERED: WATER FOR INJ Sterile (PF) 20 ML ONE (00:13)
[2019-12-22] MEDS: ALTEPLASE 2 MG INJ ONE ×3 (00:20→00:56)
[2019-12-22] MEDS ORDERED: HEPARIN/ 0.45% NACL DRIP 25,000 UNIT/500 ML BAG ONE ×2 (00:43→20:26)
[2019-12-22] MEDS ORDERED: SODIUM CHLORIDE 0.9% 1000 ML 1,000 ML ONE (00:43)
[2019-12-22] MEDS: HEPARIN 10,000 UNITS/10 ML VIAL ONE ×2 (00:57→00:58)
[2019-12-22] MEDS: ALTEPLASE 10 MG in SODIUM CHLORIDE 0.9% 250ML 250 ML IV SCH ×2 (01:06→01:45)
[2019-12-22] MEDS: HEPARIN/ 0.45% NACL DRIP 25,000 UNIT/500 ML BAG SHEATH SCH ×4 (01:06→01:45)
[2019-12-22] MEDS: SODIUM CHLORIDE 0.9% 1000 ML 1,000 ML SHEATH SCH ×2 (01:11→01:45)
[2019-12-22] MEDS: ALTEPLASE 10 MG in SODIUM CHLORIDE 0.9% 250ML 250 ML EKOSDLUMEN SCH ×2 (01:12→01:45)
[2019-12-22 01:20] LABS: Basophils % (Auto) 0.2 % (0.0-1.8); Eosinophils % (Auto) 0.1 % (0.0-4.3); Hematocrit 34.7 % (35.5-45.6); Hemoglobin 11.2 gm/dl (11.8-15.2); Lymphocytes # (Auto) 1.2 K/mm3 (1.2-5.4); Lymphocytes % (Auto) 8.2 % (13.4-35.0); Mean Corpuscular HGB Conc 32 % (32-34); Mean Corpuscular Volume 87 fl (84-94); Monocytes # (Auto) 0.6 K/mm3 (0.0-0.8); Monocytes % (Auto) 4.3 % (0.0-7.3); Platelet Count 234 K/mm3 (140-440); Red Blood Count 4.01 M/mm3 (3.65-5.03); Red Cell Distribution Width 16.8 % (13.2-15.2)
[2019-12-22] MEDS ORDERED: ONDANSETRON 4 MG/2 ML INJ ONE (01:23)
--- NOTE | 2019-12-22 01:24 | Operative Report ---
Operative Report Operative Report: Date of Procedure: 12/22/2019 Pre-operative Diagnosis: Bilateral Pulmonary Emboli with Evidence of Right Heart Strain Post-operative Diagnosis: Same Procedure(s): 1. Ultrasound-Guided Access Right Common Femoral Vein with 6 Chinese Sheath 2. Ultrasound-Guided Access Right Common Femoral Vein with 6 Chinese Sheath 3. Nonselective Main Pulmonary Artery Angiogram 4. Thrombolysis Of Right Pulmonary Artery with 106 x 12 cm EKOS Thrombolysis Catheter 5. Thrombolysis of Left Pulmonary Artery with 106 x 12 cm EKOS Thrombolysis Catheter Surgeon: Jason Hernandez M.D. Precision Machine Operator: None Anesthesia: 1% Lidocaine/Monitored Moderate Sedation EBL: Minimal Counts: Correct Complications: None Condition: Stable Specimen: None Indication: The patient is a 64-year-old male who presented to the emergency department with complaints of shortness of breath whose work-up included a CTA of his chest that demonstrated bilateral pulmonary emboli with evidence of right heart strain on CT scan. He also had evidence of tachycardia and decreased oxygen saturations with troponin leak. On physical exam he was using accessory muscles to breathe and had difficulty completing his sentences secondary to his shortness of breath. He was in need of pulmonary artery angiogram with thrombolysis to improve his symptoms. He was given the risk, benefits, and alternative procedures and consented to the procedure. Angiogram Findings: The diagnostic pulmonary artery angiogram revealed a moderate amount of thrombus within the right main pulmonary artery extending into the segmental branches. The left main pulmonary artery had a significant amount of thrombus with near total occlusion of the main pulmonary artery no significant amount of thrombus extending into the segmental branches. Both catheters were placed with the proximal tubes at the origin of the respective main pulmonary arteries. Description of Procedure: Patient was brought to the [facility] and laid in supine position. After timeout was performed his right groin was prepped and draped in normal sterile fashion. Ultrasound was used to identify the right common femoral vein and confirm patency. Once patency was confirmed the overlying skin and soft tissue was anesthetized with lidocaine. 2 small stab incisions were created with an 11 bl esau and a 21-gauge micropuncture needle was used with ultrasound guidance to enter the right common femoral vein and then a 0.018 micropuncture wire was used inserted into the vein. The inner cannula and wire were removed and a 0.035 Bentson wire was advanced to the vein. A second puncture was created into the vein using the 21-gauge micropuncture needle and ultrasound guidance and a 0.018 micropuncture wire was advanced into the vein. The needle was removed and the micropuncture sheath was then advanced into the vein and after removing the inner cannula and wire a 0.035 Bentson wire was advanced into the vein. 6 Chinese sheaths were then placed by Seldinger technique over each Bentson wire. A 6 Chinese JR 4 catheter was then advanced over the Bentson wire and the more proximal sheath and then advanced to the proximal inferior vena cava. The wire and catheter were advanced into the right atrium and then into the ventricle and the wire was eventually advanced into the right pulmonary artery. I was unable to advance the catheter over the wire and eventually required advancing a 0.035 stiff Glidewire into the right pulmonary artery and exchange in the JR4 catheter for 4 Chinese vertebral catheter. I then advanced a 0.035 Amplatz wire into the right pulmonary artery and then advanced a pigtail catheter into the main pulmonary artery and performed a nonselective pulmonary artery angiogram with the previously described findings. I then readvanced the Amplatz wire to the left pulmonary artery and then advanced the 106 x 12 cm EKOS Thrombolysis Catheter into the right pulmonary artery followed by the ultrasound wire. I then used the JR4 catheter and the stiff Glidewire and was able to advance this into the left main pulmonary artery and then exchanged the wire for the Amplatz wire. I advanced the 106 x 12 cm EKOS Thrombolysis Catheter over the wire and then advanced the ultrasound wire into the catheter. I then primed both sheaths with 2000 units of heparin and the coolant ports of each catheter with 3000 units of heparin. I primed both drug ports with 4 mg of TPA. The sheaths and catheters were then secured in position with 0 silks and secured in place with sterile dressings. The final fluoroscopy demonstrated the catheters were in adequate position. The patient tolerated the procedure well and was transported to the ICU in critical but stable condition.
[2019-12-22 01:30] LABS: INR 1.58 (0.87-1.13)
[2019-12-22 02:00] LABS: Calcium 8.7 mg/dL (8.4-10.2)
[2019-12-22 02:02] LABS: Partial Thromboplastin Time 103.1 Sec. (24.2-36.6)
[2019-12-22 06:04] LABS: Calcium 8.6 mg/dL (8.4-10.2)
[2019-12-22 06:22] LABS: Hemoglobin 11.4 gm/dl (11.8-15.2); Lymphocytes # (Auto) 1.7 K/mm3 (1.2-5.4); Mean Corpuscular HGB Conc 32 % (32-34); Mean Corpuscular Volume 87 fl (84-94); Monocytes # (Auto) 0.7 K/mm3 (0.0-0.8); Monocytes % (Auto) 5.4 % (0.0-7.3); Platelet Count 217 K/mm3 (140-440); Red Blood Count 4.12 M/mm3 (3.65-5.03); Red Cell Distribution Width 16.9 % (13.2-15.2)
[2019-12-22] MEDS ORDERED: PIPERACIL-TAZO 2.25 GM/50 ML 2.25 GM/50 ML BAG IV SCH (07:00)
--- NOTE | 2019-12-22 09:28 | Consultation ---
History of Present Illness - Reason for Consult Consult date: 12/22/19 acute renal failure - History of Present Illness This is a 64 year old male who presented to the hospital with a chief complaint of shortness of breath. CTA was done that revealed Pulmonary Embolism. Patient was started on heparin drip. Patient was also evaluated by vascular surgeon who placed thrombolytic catheter. Patient labs revealed an elevated serum creatinine of 2.3. Serum creatinine on 12/29/16 was 1.0. Patient also has Acidosis with Co2 level of 14. Patient has history of Hypertension and Gout for which he states affects his knees and feet at present, states sometimes the pain is crippling where he can walk. States his PCP referred him to see a Fire [facility] but has not been able to make the appointment to go as of yet due to the pain. We are being consulted for management of this patient's Acute Renal Failure. Past History Past Medical History: hypertension, other (Gout) Past Surgical History: No surgical history Social history: no significant social history Medications and Allergies Allergies Allergy/AdvReac Type Severity Reaction Status Date / Time No Known Allergies Allergy Unverified 03/27/15 12:05 Home Medications Medication Instructions Recorded Confirmed Last Taken Type Atenolol [Tenormin] 100 mg PO DAILY #30 tablet 03/27/15 12/22/19 Unknown Rx amLODIPine 10 mg PO DAILY #30 tablet 03/27/15 12/22/19 Unknown Rx lisinopriL [Zestril TAB] 40 mg PO QDAY #30 tablet 03/27/15 12/22/19 Unknown Rx Prednisone [predniSONE 5 mg (6-Day 5 mg PO .TAPER #1 tab.ds.pk 12/30/16 12/22/19 Unknown Rx Pack, 21 Tabs)] Celecoxib [celeBREX] 50 mg PO BID #30 capsule 05/19/17 12/22/19 Unknown Rx Cyclobenzaprine [Flexeril] 10 mg PO TID PRN #20 tablet 05/19/17 12/22/19 Unknown Rx Indomethacin 50 mg PO Q8H #15 capsule 05/19/17 12/22/19 Unknown Rx Active Meds: Active Medications Acetaminophen (Tylenol) 650 mg PO Q4H PRN PRN Reason: Pain MILD(1-3)/Fever >100.5/VICENTE Acetaminophen/Hydrocodone Bitart ([place] 5/325) 2 each PO Q6H PRN PRN Reason: Pain, Moderate (4-6) Sodium Chloride (Nacl 0.9% 1000 Ml) 1,000 mls @ 150 mls/hr IV DIRECT ANGEL Sodium Chloride (Nacl 0.9% 1000 Ml) 1,000 mls @ 30 mls/hr IV DIRECT ANGEL Alteplase, Recombinant 10 mg/ (Sodium Chloride) 250 mls @ 10 mls/hr EKOSDLUMEN DIRECT ANGEL Last Admin: 12/22/19 01:45 Dose: 10 mls Documented by: Alteplase, Recombinant 10 mg/ (Sodium Chloride) 250 mls @ 10 mls/hr IV DIRECT ANGEL Last Admin: 12/22/19 01:45 Dose: 10 mls Documented by: Sodium Chloride (Nacl 0.9% 1000 Ml) 1,000 mls @ 30 mls/hr SHEATH DIRECT ANGEL Last Admin: 12/22/19 01:45 Dose: 35 mls Documented by: Sodium Chloride (Nacl 0.9% 1000 Ml) 1,000 mls @ 35 mls/hr EKOSCLUMEN DIRECT ANGEL Sodium Chloride (Nacl 0.9% 1000 Ml) 1,000 mls @ 30 mls/hr SHEATH DIRECT ANGEL Last Admin: 12/22/19 00:00 Dose: 130 mls Documented by: Sodium Chloride (Nacl 0.9% 1000 Ml) 1,000 mls @ 35 mls/hr EKOSCLUMEN DIRECT ANGEL Heparin Sodium/Sodium Chloride (Heparin/ 0.45% Nacl-25,000 Unit/500 Ml) 25,000 unit in 500 mls @ 10 mls/hr SHEATH DIRECT ANGEL; Protocol Last Admin: 12/22/19 01:45 Dose: 10 mls Documented by: Heparin Sodium/Sodium Chloride (Heparin/ 0.45% Nacl-25,000 Unit/500 Ml) 25,000 unit in 500 mls @ 10 mls/hr SHEATH DIRECT ANGEL; Protocol Last Admin: 12/22/19 01:45 Dose: 10 mls Documented by: Piperacillin Sod/Tazobactam Sod (Zosyn/Ns 2.25 Gm/50ml) 2.25 gm in 50 mls @ 100 mls/hr IV Q8HR ANGEL; Protocol Morphine Sulfate (Morphine) 4 mg IV Q4H PRN PRN Reason: Pain , Severe (7-10) Morphine Sulfate (Morphine) 2 mg IV Q4H PRN PRN Reason: Pain, Moderate (4-6) Ondansetron HCl (Zofran) 4 mg IV Q8H PRN PRN Reason: Nausea And Vomiting Last Admin: 12/22/19 01:22 Dose: 4 mg Documented by: Sodium Chloride (Sodium Chloride Flush Syringe 10 Ml) 10 ml IV BID ANGEL Sodium Chloride (Sodium Chloride Flush Syringe 10 Ml) 10 ml IV PRN PRN PRN Reason: LINE FLUSH Exam - Vital Signs Vital signs: Vital Signs Pulse Resp Pulse Ox 116 H 25 H 94 12/21/19 19:38 12/21/19 19:38 12/21/19 19:38 Results - Lab Results 12/22/19 04:47 12/22/19 04:47 Most recent lab results WBC 13.8 K/mm3 (4.5-11.0) H 12/22/19 04:47 RBC 4.12 M/mm3 (3.65-5.03) 12/22/19 04:47 Hgb 11.4 gm/dl (11.8-15.2) L 12/22/19 04:47 Hct 36.0 % (35.5-45.6) 12/22/19 04:47 MCV 87 fl (84-94) 12/22/19 04:47 MCH 28 pg (28-32) 12/22/19 04:47 MCHC 32 % (32-34) 12/22/19 04:47 RDW 16.9 % (13.2-15.2) H 12/22/19 04:47 Plt Count 217 K/mm3 (140-440) 12/22/19 04:47 Lymph % (Auto) 12.0 % (13.4-35.0) L 12/22/19 04:47 [place] % (Auto) 5.4 % (0.0-7.3) 12/22/19 04:47 Eos % (Auto) 0.0 % (0.0-4.3) 12/22/19 04:47 Baso % (Auto) 0.0 % (0.0-1.8) 12/22/19 04:47 Lymph # 1.7 K/mm3 (1.2-5.4) 12/22/19 04:47 [place] # 0.7 K/mm3 (0.0-0.8) 12/22/19 04:47 Eos # 0.0 K/mm3 (0.0-0.4) 12/22/19 04:47 Baso # 0.0 K/mm3 (0.0-0.1) 12/22/19 04:47 Seg Neutrophils % 82.6 % (40.0-70.0) H 12/22/19 04:47 Seg Neutrophils # 11.4 K/mm3 (1.8-7.7) H 12/22/19 04:47 PT 18.5 Sec. (12.2-14.9) H 12/21/19 23:59 INR 1.58 (0.87-1.13) H 12/21/19 23:59 APTT 103.1 Sec. (24.2-36.6) H* 12/21/19 23:59 Fibrinogen 350 mg/dl (211-480) 12/22/19 04:47 D-Dimer > 40136 ng/mlDDU (0-234) H 12/21/19 20:29 Heparin Anti-Xa Level 1.39 U.I./ml (0.3-0.7) H 12/22/19 04:47 Sodium 145 mmol/L (137-145) 12/22/19 04:47 Potassium 4.5 mmol/L (3.6-5.0) D 12/22/19 04:47 Chloride 108.4 mmol/L (98-107) H 12/22/19 04:47 Carbon Dioxide 14 mmol/L (22-30) L 12/22/19 04:47 Anion Gap 27 mmol/L 12/22/19 04:47 BUN 24 mg/dL (9-20) H 12/22/19 04:47 Creatinine 2.3 mg/dL (0.8-1.5) H 12/22/19 04:47 Estimated GFR 35 ml/min 12/22/19 04:47 BUN/Creatinine Ratio 10 % 12/22/19 04:47 Glucose 160 mg/dL (75-100) H 12/22/19 04:47 POC Glucose 232 (70-105) H 12/21/19 20:19 Hemoglobin A1c 4.9 % (4-6) 12/22/19 04:47 Lactic Acid 5.80 mmol/L (0.7-2.0) H* 12/22/19 04:47 Calcium 8.6 mg/dL (8.4-10.2) 12/22/19 04:47 Total Bilirubin 0.60 mg/dL (0.1-1.2) 12/21/19 20:29 AST 32 units/L (5-40) 12/21/19 20:29 ALT 18 units/L (7-56) 12/21/19 20:29 Alkaline Phosphatase 178 units/L (35-129) H 12/21/19 20:29 Troponin T 0.570 ng/mL (0.00-0.029) H* D 12/21/19 23:59 Total Protein 7.0 g/dL (6.3-8.2) 12/21/19 20:29 Albumin 3.6 g/dL (3.9-5) L 12/21/19 20:29 Albumin/Globulin Ratio 1.1 % 12/21/19 20:29 Triglycerides 124 mg/dL (2-149) 12/21/19 20: Cholesterol 162 mg/dL (50-199) 12/21/19 20:29 LDL Cholesterol Direct 122 mg/dL (50-130) 12/21/19 20:29 HDL Cholesterol 27 mg/dL (40-59) L 12/21/19 20:29 Cholesterol/HDL Ratio 6.00 % 12/21/19 20:29 Assessment and Plan Acute Renal Failure secondary to Ischemic ATN vs Prerenalvs NSAID use: Acidosis: -Serum creatinine 2.3 today. Labs on 12/29/16 showed serum creatinine was 1.0 -Patient was taking Lisinopril, Indomethacin and Celebrex at home -CT of Abdomen/Pelvis- No acute findings for kidneys -CXR- lungs are clear -Acidosis-Start Sodium Bicarbonate gtt -Obtain urine lytes -Avoid nephrotoxic agents -Monitor I/O's -Monitor renal function closely Pulmonary Embolism: -On Heprain drip -S/P thrombolytic catheter placement by vascular- receiving Alteplase Hypertension: -Controlled -Monitor BP Gout: -No NSAID's, do not resume home Celebrex or Indomethacin due to renal failure -Can give Tramadol if needed -Patient to f/u with outpatient Fire Medic
--- NOTE | 2019-12-22 10:38 | Progress Note ---
Assessment and Plan Assessment and plan: Massive pulmonary emboli with right heart strain s/p pulmonary artery angiogram and thrombolysis of right and left pulm artery by EKOS thrombolysis catheter CT abdomen and pelvis poss pancreatis Surgery consulted SIRS Started empiric antibiotics, follow cultures Acute kidney injury Start IV fluid, monitor kidney function, consulted renal Abnormal cardiac enzymes, consulted cardiology History of hypertension stable History Interval history: Patient with PE s/p thrombolysis with EKOS catheter Hospitalist Physical - Physical exam Narrative exam: GEN: Not in acute distress, lying in bed HEENT: Normocephalic, atraumatic, Neck: supple, No JVD Lungs: Clear, no crackles, no wheeze heart;S1 and S2 reg, no murmurs, rubs or gallop Abd:soft, non tender, non distended, normal bowel sounds, Ext: Catheter right groin, dressing over right groin, no clubbing, no cyanosis, Neuro: Awake,alert,oriented X3 , no focal sign - Constitutional Vitals: Temp Pulse Resp BP Pulse Ox 97.3 F L 65 18 120/89 98 12/22/19 08:00 12/22/19 07:00 12/22/19 07:00 12/22/19 07:00 12/22/19 07:33 HEART Score - HEART Score Troponin: Troponin T 0.570 ng/mL (0.00-0.029) H* D 12/21/19 23:59 Results - Labs CBC & Chem 7: 12/22/19 16:38 12/22/19 04:47 Labs: Laboratory Last Values WBC 13.8 K/mm3 (4.5-11.0) H 12/22/19 04:47 RBC 4.12 M/mm3 (3.65-5.03) 12/22/19 04:47 Hgb 11.4 gm/dl (11.8-15.2) L 12/22/19 04:47 Hct 36.0 % (35.5-45.6) 12/22/19 04:47 MCV 87 fl (84-94) 12/22/19 04:47 MCH 28 pg (28-32) 12/22/19 04:47 MCHC 32 % (32-34) 12/22/19 04:47 RDW 16.9 % (13.2-15.2) H 12/22/19 04:47 Plt Count 217 K/mm3 (140-440) 12/22/19 04:47 Lymph % (Auto) 12.0 % (13.4-35.0) L 12/22/19 04:47 [place] % (Auto) 5.4 % (0.0-7.3) 12/22/19 04:47 Eos % (Auto) 0.0 % (0.0-4.3) 12/22/19 04:47 Baso % (Auto) 0.0 % (0.0-1.8) 12/22/19 04:47 Lymph # 1.7 K/mm3 (1.2-5.4) 12/22/19 04:47 [place] # 0.7 K/mm3 (0.0-0.8) 12/22/19 04:47 Eos # 0.0 K/mm3 (0.0-0.4) 12/22/19 04:47 Baso # 0.0 K/mm3 (0.0-0.1) 12/22/19 04:47 Seg Neutrophils % 82.6 % (40.0-70.0) H 12/22/19 04:47 Seg Neutrophils # 11.4 K/mm3 (1.8-7.7) H 12/22/19 04:47 PT 18.5 Sec. (12.2-14.9) H 12/21/19 23:59 INR 1.58 (0.87-1.13) H 12/21/19 23:59 APTT 103.1 Sec. (24.2-36.6) H* 12/21/19 23:59 Fibrinogen 350 mg/dl (211-480) 12/22/19 04:47 D-Dimer > 34207 ng/mlDDU (0-234) H 12/21/19 20:29 Heparin Anti-Xa Level 1.39 U.I./ml (0.3-0.7) H 12/22/19 04:47 Sodium 145 mmol/L (137-145) 12/22/19 04:47 Potassium 4.5 mmol/L (3.6-5.0) D 12/22/19 04:47 Chloride 108.4 mmol/L (98-107) H 12/22/19 04:47 Carbon Dioxide 14 mmol/L (22-30) L 12/22/19 04:47 Anion Gap 27 mmol/L 12/22/19 04:47 BUN 24 mg/dL (9-20) H 12/22/19 04:47 Creatinine 2.3 mg/dL (0.8-1.5) H 12/22/19 04:47 Estimated GFR 35 ml/min 12/22/19 04:47 BUN/Creatinine Ratio 10 % 12/22/19 04:47 Glucose 160 mg/dL (75-100) H 12/22/19 04:47 POC Glucose 232 (70-105) H 12/21/19 20:19 Hemoglobin A1c 4.9 % (4-6) 12/22/19 04:47 Lactic Acid 5.80 mmol/L (0.7-2.0) H* 12/22/19 04:47 Calcium 8.6 mg/dL (8.4-10.2) 12/22/19 04:47 Total Bilirubin 0.60 mg/dL (0.1-1.2) 12/21/19 20:29 AST 32 units/L (5-40) 12/21/19 20:29 ALT 18 units/L (7-56) 12/21/19 20:29 Alkaline Phosphatase 178 units/L (35-129) H 12/21/19 20:29 Troponin T 0.570 ng/mL (0.00-0.029) H* D 12/21/19 23:59 Total Protein 7.0 g/dL (6.3-8.2) 12/21/19 20:29 Albumin 3.6 g/dL (3.9-5) L 12/21/19 20:29 Albumin/Globulin Ratio 1.1 % 12/21/19 20:29 Triglycerides 124 mg/dL (2-149) 12/21/19 20:29 Cholesterol 162 mg/dL (50-199) 12/21/19 20:29 LDL Cholesterol Direct 122 mg/dL (50-130) 12/21/19 20:29 HDL Cholesterol 27 mg/dL (40-59) L 12/21/19 20:29 Cholesterol/HDL Ratio 6.00 % 12/21/19 20:29 Microbiology: Microbiology 12/21/19 20:39 Peripheral/Venous Blood Culture - Preliminary Culture in Progress 12/21/19 20:36 Peripheral/Venous Blood Culture - Preliminary Culture in Progress Summers/IV: IV Catheter Type [Right INT / Saline Lock Antecubital] IV Catheter Type [Left Hand] INT / Saline Lock Active Medications - Current Medications Current Medications: Generic Name Dose Route Start Last Admin Trade Name Freq PRN Reason Stop Dose Admin Acetaminophen 650 mg 12/21/19 23:12 Tylenol PO Q4H PRN Pain MILD(1-3)/Fever >100.5/VICENTE Acetaminophen/Hydrocodone Bitart 2 each 12/21/19 23:44 [place] 5/325 PO Q6H PRN Pain, Moderate (4-6) Sodium Chloride 1,000 mls @ 30 mls/hr 12/21/19 23:45 Nacl 0.9% 1000 Ml IV DIRECT ANGEL Alteplase, Recombinant 10 mg/ 250 mls @ 10 mls/hr 12/21/19 23:45 12/22/19 01:45 Sodium Chloride EKOSDLUMEN 10 mls DIRECT ANGEL Administration Alteplase, Recombinant 10 mg/ 250 mls @ 10 mls/hr 12/21/19 23:45 12/22/19 01:45 Sodium Chloride IV 10 mls DIRECT ANGEL Administration Sodium Chloride 1,000 mls @ 30 mls/hr 12/21/19 23:45 12/22/19 01:45 Nacl 0.9% 1000 Ml SHEATH 35 mls DIRECT ANGEL Administration Sodium Chloride 1,000 mls @ 35 mls/hr 12/21/19 23:45 Nacl 0.9% 1000 Ml EKOSCLUMEN DIRECT ANGEL Sodium Chloride 1,000 mls @ 30 mls/hr 12/21/19 23:45 12/22/19 00:00 Nacl 0.9% 1000 Ml SHEATH 130 mls DIRECT ANGEL Administration Sodium Chloride 1,000 mls @ 35 mls/hr 12/21/19 23:45 Nacl 0.9% 1000 Ml EKOSCLUMEN DIRECT ANGEL Heparin Sodium/Sodium Chloride 25,000 unit in 500 mls @ 10 mls/hr 12/21/19 23:45 12/22/19 01:45 Heparin/ 0.45% Nacl-25,000 Unit/500 Ml SHEATH 10 mls DIRECT ANGEL Administration Protocol 500 UNITS/HR Heparin Sodium/Sodium Chloride 25,000 unit in 500 mls @ 10 mls/hr 12/21/19 23:45 12/22/19 01:45 Heparin/ 0.45% Nacl-25,000 Unit/500 Ml SHEATH 10 mls DIRECT ANGEL Administration Protocol 500 UNITS/HR Piperacillin Sod/Tazobactam Sod 2.25 gm in 50 mls @ 100 mls/hr 12/22/19 07:00 12/22/19 09:42 Zosyn/Ns 2.25 Gm/50ml IV 100 mls/hr Q8HR ANGEL Administration Protocol Sodium Bicarbonate 100 meq/ 1,100 mls @ 75 mls/hr 12/22/19 11:00 Dextrose IV DIRECT ANGEL Morphine Sulfate 4 mg 12/21/19 23:44 Morphine IV Q4H PRN Pain , Severe (7-10) Morphine Sulfate 2 mg 12/21/19 23:44 Morphine IV Q4H PRN Pain, Moderate (4-6) Ondansetron HCl 4 mg 12/21/19 23:44 12/22/19 01:22 Zofran IV 4 mg Q8H PRN Administration Nausea And Vomiting Sodium Chloride 10 ml 12/22/19 10:00 Sodium Chloride Flush Syringe 10 Ml IV BID ANGEL Sodium Chloride 10 ml 12/21/19 23:12 Sodium Chloride Flush Syringe 10 Ml IV PRN PRN LINE FLUSH
--- NOTE | 2019-12-22 10:57 | Consultation ---
History of Present Illness Consult date: 12/22/19 Requesting physician: EMEKA DYER Reason for consult: pulmonary embolism History of present illness: 64 y /o male admitted with chest pain, found to have large PE and evidence of right heart strain. Vascular performed EKOS early am. Patient now in ICU for further monitoring. Patient awake and alert, lying flat in bed with bilateral ekos catheters. Chest pain free now. Wondering when he will be able to eat and drink or at least attempt it. Past History Past Medical History: hypertension, other (Gout) Past Surgical History: No surgical history Social history: no significant social history Medications and Allergies Allergies Allergy/AdvReac Type Severity Reaction Status Date / Time No Known Allergies Allergy Unverified 03/27/15 12:05 Home Medications Medication Instructions Recorded Confirmed Last Taken Type Atenolol [Tenormin] 100 mg PO DAILY #30 tablet 03/27/15 12/22/19 Unknown Rx amLODIPine 10 mg PO DAILY #30 tablet 03/27/15 12/22/19 Unknown Rx lisinopriL [Zestril TAB] 40 mg PO QDAY #30 tablet 03/27/15 12/22/19 Unknown Rx Prednisone [predniSONE 5 mg (6-Day 5 mg PO .TAPER #1 tab.ds.pk 12/30/16 12/22/19 Unknown Rx Pack, 21 Tabs)] Celecoxib [celeBREX] 50 mg PO BID #30 capsule 05/19/17 12/22/19 Unknown Rx Cyclobenzaprine [Flexeril] 10 mg PO TID PRN #20 tablet 05/19/17 12/22/19 Unknown Rx Indomethacin 50 mg PO Q8H #15 capsule 05/19/17 12/22/19 Unknown Rx Active Meds: Active Medications Acetaminophen (Tylenol) 650 mg PO Q4H PRN PRN Reason: Pain MILD(1-3)/Fever >100.5/VICENTE Acetaminophen/Hydrocodone Bitart ([place] 5/325) 2 each PO Q6H PRN PRN Reason: Pain, Moderate (4-6) Sodium Chloride (Nacl 0.9% 1000 Ml) 1,000 mls @ 30 mls/hr IV DIRECT ANGEL Alteplase, Recombinant 10 mg/ (Sodium Chloride) 250 mls @ 10 mls/hr EKOSDLUMEN DIRECT ANGEL Last Admin: 12/22/19 01:45 Dose: 10 mls Documented by: Alteplase, Recombinant 10 mg/ (Sodium Chloride) 250 mls @ 10 mls/hr IV DIRECT ANGEL Last Admin: 12/22/19 01:45 Dose: 10 mls Documented by: Sodium Chloride (Nacl 0.9% 1000 Ml) 1,000 mls @ 30 mls/hr SHEATH DIRECT ANGEL Last Admin: 12/22/19 01:45 Dose: 35 mls Documented by: Sodium Chloride (Nacl 0.9% 1000 Ml) 1,000 mls @ 35 mls/hr EKOSCLUMEN DIRECT ANGEL Sodium Chloride (Nacl 0.9% 1000 Ml) 1,000 mls @ 30 mls/hr SHEATH DIRECT ANGEL Last Admin: 12/22/19 00:00 Dose: 130 mls Documented by: Sodium Chloride (Nacl 0.9% 1000 Ml) 1,000 mls @ 35 mls/hr EKOSCLUMEN DIRECT ANGEL Heparin Sodium/Sodium Chloride (Heparin/ 0.45% Nacl-25,000 Unit/500 Ml) 25,000 unit in 500 mls @ 10 mls/hr SHEATH DIRECT ANGEL; Protocol Last Admin: 12/22/19 01:45 Dose: 10 mls Documented by: Heparin Sodium/Sodium Chloride (Heparin/ 0.45% Nacl-25,000 Unit/500 Ml) 25,000 unit in 500 mls @ 10 mls/hr SHEATH DIRECT ANGEL; Protocol Last Admin: 12/22/19 01:45 Dose: 10 mls Documented by: Piperacillin Sod/Tazobactam Sod (Zosyn/Ns 2.25 Gm/50ml) 2.25 gm in 50 mls @ 100 mls/hr IV Q8HR ANGEL; Protocol Last Admin: 12/22/19 09:42 Dose: 100 mls/hr Documented by: Sodium Bicarbonate 100 meq/ (Dextrose) 1,100 mls @ 75 mls/hr IV DIRECT ANGEL Morphine Sulfate (Morphine) 4 mg IV Q4H PRN PRN Reason: Pain , Severe (7-10) Morphine Sulfate (Morphine) 2 mg IV Q4H PRN PRN Reason: Pain, Moderate (4-6) Ondansetron HCl (Zofran) 4 mg IV Q8H PRN PRN Reason: Nausea And Vomiting Last Admin: 05/23/20 01:22 Dose: 4 mg Documented by: Sodium Chloride (Sodium Chloride Flush Syringe 10 Ml) 10 ml IV BID ANGEL Sodium Chloride (Sodium Chloride Flush Syringe 10 Ml) 10 ml IV PRN PRN PRN Reason: LINE FLUSH Review of Systems All systems: negative Physical Examination Vital signs: Vital Signs Pulse Resp Pulse Ox 116 H 25 H 94 12/21/19 19:38 12/21/19 19:38 12/21/19 19:38 General appearance: no acute distress, alert Eyes: non-icteric ENT: oropharynx moist Neck: supple, no JVD Effort: normal Ascultation: Bilateral: clear Percussion: Bilateral: not dull Tactile fremitus: Bilateral: normal Cardiovascular: regular rate and rhythm Gastrointestinal: normoactive bowel sounds, soft, non-tender Results - Laboratory Findings CBC and BMP: 12/22/19 10:35 12/22/19 04:47 PT/INR, D-dimer PT 18.5 Sec. (12.2-14.9) H 12/21/19 23:59 INR 1.58 (0.87-1.13) H 12/21/19 23:59 D-Dimer > 34880 ng/mlDDU (0-234) H 12/21/19 20:29 Abnormal lab findings: Abnormal Labs 12/21/19 12/21/19 12/21/19 00:58 00:58 20:19 WBC 14.9 H Hgb 11.2 L Hct 34.7 L MCHC RDW 16.8 H Lymph % (Auto) 8.2 L Seg Neutrophils % 87.2 H Seg Neutrophils # 13.0 H PT INR APTT D-Dimer Heparin Anti-Xa Level Potassium Chloride Carbon Dioxide 16 L BUN 22 H Creatinine 2.3 H Glucose 203 H POC Glucose 232 H Lactic Acid Alkaline Phosphatase Troponin T Albumin HDL Cholesterol 12/21/19 12/21/19 12/21/19 20:29 20:29 20:29 WBC 12.1 H Hgb 11.5 L Hct MCHC 31 L RDW 16.9 H Lymph % (Auto) Seg Neutrophils % 81.1 H Seg Neutrophils # 9.8 H PT INR APTT D-Dimer > 46609 H Heparin Anti-Xa Level Potassium 3.3 L Chloride Carbon Dioxide 16 L BUN Creatinine 2.1 H Glucose 292 H POC Glucose Lactic Acid Alkaline Phosphatase 178 H Troponin T 0.241 H* Albumin 3.6 L HDL Cholesterol 27 L 12/21/19 12/21/19 12/21/19 20:29 20:36 23:59 WBC Hgb Hct MCHC RDW Lymph % (Auto) Seg Neutrophils % Seg Neutrophils # PT 16.5 H INR 1.36 H APTT D-Dimer Heparin Anti-Xa Level Potassium Chloride Carbon Dioxide BUN Creatinine Glucose POC Glucose Lactic Acid 7.80 H* Alkaline Phosphatase Troponin T 0.570 H* D Albumin HDL Cholesterol 12/21/19 12/22/19 12/22/19 23:59 04:47 04:47 WBC Hgb Hct MCHC RDW Lymph % (Auto) Seg Neutrophils % Seg Neutrophils # PT 18.5 H INR 1.58 H APTT 103.1 H* D-Dimer Heparin Anti-Xa Level 1.39 H Potassium Chloride Carbon Dioxide BUN Creatinine Glucose POC Glucose Lactic Acid 5.80 H* Alkaline Phosphatase Troponin T Albumin HDL Cholesterol 12/22/19 12/22/19 04:47 04:47 WBC 13.8 H Hgb 11.4 L Hct MCHC RDW 16.9 H Lymph % (Auto) 12.0 L Seg Neutrophils % 82.6 H Seg Neutrophils # 11.4 H PT INR APTT D-Dimer Heparin Anti-Xa Level Potassium Chloride 108.4 H Carbon Dioxide 14 L BUN 24 H Creatinine 2.3 H Glucose 160 H POC Glucose Lactic Acid Alkaline Phosphatase Troponin T Albumin HDL Cholesterol - Diagnostic Findings Chest x-ray: image reviewed CT scan - chest: image reviewed Assessment and Plan 64 y/o male with bilateral PE s/p EKOS for catheter directed thrombolysis 1. Continue anticoagulation as per vascular 2. Maintain ICU status until at least 4-6 hours post catheter removal 3. Follow up any cardiology recs 4. Will need full hypercoag work up. CCT 31 minutes.
[2019-12-22 10:59] LABS: Basophils % (Auto) 0.2 % (0.0-1.8); Eosinophils % (Auto) 0.1 % (0.0-4.3); Hematocrit 34.8 % (35.5-45.6); Hemoglobin 11.1 gm/dl (11.8-15.2); Lymphocytes # (Auto) 2.5 K/mm3 (1.2-5.4); Lymphocytes % (Auto) 19.9 % (13.4-35.0); Mean Corpuscular HGB Conc 32 % (32-34); Mean Corpuscular Volume 87 fl (84-94); Monocytes # (Auto) 1.1 K/mm3 (0.0-0.8); Monocytes % (Auto) 8.3 % (0.0-7.3); Platelet Count 204 K/mm3 (140-440); Red Cell Distribution Width 16.7 % (13.2-15.2)
--- NOTE | 2019-12-22 11:05 | Consultation ---
Past History Past Medical History: hypertension, other (Gout) Past Surgical History: No surgical history Social history: no significant social history Medications and Allergies Allergies Allergy/AdvReac Type Severity Reaction Status Date / Time No Known Allergies Allergy Unverified 03/27/15 12:05 Home Medications Medication Instructions Recorded Confirmed Last Taken Type Atenolol [Tenormin] 100 mg PO DAILY #30 tablet 03/27/15 12/22/19 Unknown Rx amLODIPine 10 mg PO DAILY #30 tablet 03/27/15 12/22/19 Unknown Rx lisinopriL [Zestril TAB] 40 mg PO QDAY #30 tablet 03/27/15 12/22/19 Unknown Rx Prednisone [predniSONE 5 mg (6-Day 5 mg PO .TAPER #1 tab.ds.pk 12/30/16 12/22/19 Unknown Rx Pack, 21 Tabs)] Celecoxib [celeBREX] 50 mg PO BID #30 capsule 05/19/17 12/22/19 Unknown Rx Cyclobenzaprine [Flexeril] 10 mg PO TID PRN #20 tablet 05/19/17 12/22/19 Unknown Rx Indomethacin 50 mg PO Q8H #15 capsule 05/19/17 12/22/19 Unknown Rx Active Meds: Active Medications Acetaminophen (Tylenol) 650 mg PO Q4H PRN PRN Reason: Pain MILD(1-3)/Fever >100.5/VICENTE Acetaminophen/Hydrocodone Bitart ([place] 5/325) 2 each PO Q6H PRN PRN Reason: Pain, Moderate (4-6) Sodium Chloride (Nacl 0.9% 1000 Ml) 1,000 mls @ 30 mls/hr IV DIRECT ANGEL Alteplase, Recombinant 10 mg/ (Sodium Chloride) 250 mls @ 10 mls/hr EKOSDLUMEN DIRECT ANGEL Last Admin: 12/22/19 01:45 Dose: 10 mls Documented by: Alteplase, Recombinant 10 mg/ (Sodium Chloride) 250 mls @ 10 mls/hr IV DIRECT ANGEL Last Admin: 12/22/19 01:45 Dose: 10 mls Documented by: Sodium Chloride (Nacl 0.9% 1000 Ml) 1,000 mls @ 30 mls/hr SHEATH DIRECT ANGEL Last Admin: 12/22/19 01:45 Dose: 35 mls Documented by: Sodium Chloride (Nacl 0.9% 1000 Ml) 1,000 mls @ 35 mls/hr EKOSCLUMEN DIRECT ANGEL Sodium Chloride (Nacl 0.9% 1000 Ml) 1,000 mls @ 30 mls/hr SHEATH DIRECT ANGEL Last Admin: 12/22/19 00:00 Dose: 130 mls Documented by: Sodium Chloride (Nacl 0.9% 1000 Ml) 1,000 mls @ 35 mls/hr EKOSCLUMEN DIRECT ANGEL Heparin Sodium/Sodium Chloride (Heparin/ 0.45% Nacl-25,000 Unit/500 Ml) 25,000 unit in 500 mls @ 10 mls/hr SHEATH DIRECT ANGEL; Protocol Last Admin: 12/22/19 01:45 Dose: 10 mls Documented by: Heparin Sodium/Sodium Chloride (Heparin/ 0.45% Nacl-25,000 Unit/500 Ml) 25,000 unit in 500 mls @ 10 mls/hr SHEATH DIRECT ANGEL; Protocol Last Admin: 12/22/19 01:45 Dose: 10 mls Documented by: Piperacillin Sod/Tazobactam Sod (Zosyn/Ns 2.25 Gm/50ml) 2.25 gm in 50 mls @ 100 mls/hr IV Q8HR ANGEL; Protocol Last Admin: 12/22/19 09:42 Dose: 100 mls/hr Documented by: Sodium Bicarbonate 100 meq/ (Dextrose) 1,100 mls @ 75 mls/hr IV DIRECT ANGEL Morphine Sulfate (Morphine) 4 mg IV Q4H PRN PRN Reason: Pain , Severe (7-10) Morphine Sulfate (Morphine) 2 mg IV Q4H PRN PRN Reason: Pain, Moderate (4-6) Ondansetron HCl (Zofran) 4 mg IV Q8H PRN PRN Reason: Nausea And Vomiting Last Admin: 12/22/19 01:22 Dose: 4 mg Documented by: Sodium Chloride (Sodium Chloride Flush Syringe 10 Ml) 10 ml IV BID ANGEL Sodium Chloride (Sodium Chloride Flush Syringe 10 Ml) 10 ml IV PRN PRN PRN Reason: LINE FLUSH Physical Examination Vital Signs Pulse Resp Pulse Ox 116 H 25 H 94 12/21/19 19:38 12/21/19 19:38 12/21/19 19:38 Results 12/22/19 10:35 12/22/19 04:47 Cardiac Enzymes 12/21/19 Range/Units 20:29 AST 32 (5-40) units/L Coagulation 12/21/19 12/21/19 12/21/19 Range/Units 20:29 20:29 23:59 PT 16.5 H 18.5 H (12.2-14.9) Sec. INR 1.36 H 1.58 H (0.87-1.13) APTT 27.6 103.1 H* (24.2-36.6) Sec. Lipids 12/21/19 Range/Units 20:29 Triglycerides 124 (2-149) mg/dL Cholesterol 162 (50-199) mg/dL HDL Cholesterol 27 L (40-59) mg/dL Cholesterol/HDL Ratio 6.00 % CBC 12/21/19 12/21/19 12/22/19 Range/Units 00:58 20:29 04:47 WBC 14.9 H 12.1 H 13.8 H (4.5-11.0) K/mm3 RBC 4.01 4.11 4.12 (3.65-5.03) M/mm3 Hgb 11.2 L 11.5 L 11.4 L (11.8-15.2) gm/dl Hct 34.7 L 36.7 36.0 (35.5-45.6) % Plt Count 234 235 217 (140-440) K/mm3 Lymph # 1.2 1.7 1.7 (1.2-5.4) K/mm3 [place] # 0.6 0.5 0.7 (0.0-0.8) K/mm3 Eos # 0.0 0.0 0.0 (0.0-0.4) K/mm3 Baso # 0.0 0.0 0.0 (0.0-0.1) K/mm3 12/22/19 Range/Units 10:35 WBC 12.7 H (4.5-11.0) K/mm3 RBC 4.00 (3.65-5.03) M/mm3 Hgb 11.1 L (11.8-15.2) gm/dl Hct 34.8 L (35.5-45.6) % Plt Count 204 (140-440) K/mm3 Lymph # 2.5 (1.2-5.4) K/mm3 [place] # 1.1 H (0.0-0.8) K/mm3 Eos # 0.0 (0.0-0.4) K/mm3 Baso # 0.0 (0.0-0.1) K/mm3 Comprehensive Metabolic Panel 12/21/19 12/21/19 12/21/19 Range/Units 00:58 20:29 23:59 Sodium 145 145 (137-145) mmol/L Potassium 4.1 3.3 L (3.6-5.0) mmol/L Chloride 106.6 106.6 (98-107) mmol/L Carbon Dioxide 16 L 16 L (22-30) mmol/L BUN 22 H 19 (9-20) mg/dL Creatinine 2.3 H 2.1 H (0.8-1.5) mg/dL Glucose 203 H 292 H (75-100) mg/dL Calcium 8.7 9.4 Cancelled (8.4-10.2) mg/dL AST 32 (5-40) units/L ALT 18 (7-56) units/L Alkaline Phosphatase 178 H (35-129) units/L Total Protein 7.0 (6.3-8.2) g/dL Albumin 3.6 L (3.9-5) g/dL 12/22/19 Range/Units 04:47 Sodium 145 (137-145) mmol/L Potassium 4.5 D (3.6-5.0) mmol/L Chloride 108.4 H (98-107) mmol/L Carbon Dioxide 14 L (22-30) mmol/L BUN 24 H (9-20) mg/dL Creatinine 2.3 H (0.8-1.5) mg/dL Glucose 160 H (75-100) mg/dL Calcium 8.6 (8.4-10.2) mg/dL AST (5-40) units/L ALT (7-56) units/L Alkaline Phosphatase (35-129) units/L Total Protein (6.3-8.2) g/dL Albumin (3.9-5) g/dL Assessment and Plan pt seen and examined full consult dictated thx
--- NOTE | 2019-12-22 12:17 | Consultation ---
CARDIOLOGY CONSULTATION REFERRING PHYSICIAN: Dr. Dorie Mae REASON FOR CONSULTATION: Advice and opinion regarding cardiac status given pulmonary embolus. HISTORY OF PRESENT ILLNESS: The patient is a pleasant 64-year-old -Thai gentleman seen in the ICU room 261. He was admitted with acute shortness of breath, found to have massive pulmonary emboli, underwent EKOS catheter placement by Dr. Jason Hernandez last night, on IV heparin and alteplase. States that he is feeling much better. Denies any chest pain, shortness of breath, syncope or presyncope. Clinically, is significantly improved. No abdominal pain, fevers, chills, nausea or vomiting. No headache, blurred vision, rashes, history of bleeding, diathesis. PAST MEDICAL HISTORY: Hypertension, gout, sees a primary care doctor in the [facility], Dr. Lopez. PAST SURGICAL HISTORY: None. SOCIAL HISTORY: Nonsmoker, nondrinker. He works at [employer] at the [employer]. FAMILY HISTORY: Hypertension. PHYSICAL EXAMINATION: VITAL SIGNS: Blood pressure is 120/80s, afebrile. Tele reveals sinus rhythm in 60s and 70s. O2 sat is 98% on 2 liters. GENERAL: This is a middle-aged -Thai male in no apparent distress, oriented x3. HEENT: Sclerae are anicteric. PERRLA. NECK: Supple, no masses, no JVD. CHEST: Clear to auscultation bilaterally. Good air movement. CARDIOVASCULAR: Regular rhythm, S1, S2. ABDOMEN: Soft, nontender, nondistended. Normoactive bowel sounds. BREASTS: No mass or bruits. EXTREMITIES: No cyanosis, clubbing or edema. Good peripheral pulses. SKIN: Dry and intact. No rashes. LABORATORY DATA: WBCs 13.8, hemoglobin 11.4, hematocrit 36, platelets 217. Creatinine on arrival 2.3 today 2.3. Lactic acid was 7.8 last night, 5.8 this morning. First troponin is 0.57. AST and ALT are normal. HDL is 27, LDL is 122. His initial ECG reveals sinus tachycardia, heart rate of 116, PVC. We will repeat EKG. MEDICATIONS: Inpatient and outpatient medications reviewed. ALLERGIES: No known drug, food, or environmental allergies. ASSESSMENT AND PLAN: At this point, the patient is clinically vastly improved on IV heparin and alteplase, EKOS catheter in place. Echocardiogram is pending. Doppler of lower extremities is also pending. Abdominal CT scan shows moderate peripancreatic inflammatory changes, questionable pancreatitis with gallbladder thickening. Followup echocardiogram. Continue current therapies. Stable cardiac status. JOB# [id number] SBM/NTS
--- NOTE | 2019-12-22 13:43 | Consultation ---
History of Present Illness Consult date: 12/22/19 Reason for consult: other (abnormal CT) Requesting physician: EVELINE DIAZ Chief complaint: SOB - History of present illness History of present illness: 64yo M presented to the emergency room with severe shortness of breath. Patient was evaluated and found to have bilateral pulmonary emboli. During the work-up, CT scan of the abdomen was also performed. On this noncontrast study it was noted that patient may have signs suggestive of pancreatitis and possibly acute cholecystitis. General surgery was asked to evaluate. Patient reports he is feeling much better today after the thrombolysis performed by Dr. Hernandez. Patient denies ever having abdominal pain before coming to the ER or currently. Patient is hungry at this time. Denies any nausea or vomiting. Past History Past Medical History: hypertension, other (Gout) Past Surgical History: No surgical history Social history: no significant social history. denies: smoking, alcohol abuse Medications and Allergies Allergies Allergy/AdvReac Type Severity Reaction Status Date / Time No Known Allergies Allergy Unverified 03/27/15 12:05 Home Medications Medication Instructions Recorded Confirmed Last Taken Type Atenolol [Tenormin] 100 mg PO DAILY #30 tablet 03/27/15 12/22/19 Unknown Rx amLODIPine 10 mg PO DAILY #30 tablet 03/27/15 12/22/19 Unknown Rx lisinopriL [Zestril TAB] 40 mg PO QDAY #30 tablet 03/27/15 12/22/19 Unknown Rx Prednisone [predniSONE 5 mg (6-Day 5 mg PO .TAPER #1 tab.ds.pk 12/30/16 12/22/19 Unknown Rx Pack, 21 Tabs)] Celecoxib [celeBREX] 50 mg PO BID #30 capsule 05/19/17 12/22/19 Unknown Rx Cyclobenzaprine [Flexeril] 10 mg PO TID PRN #20 tablet 05/19/17 12/22/19 Unknown Rx Indomethacin 50 mg PO Q8H #15 capsule 05/19/17 12/22/19 Unknown Rx Active Meds: Active Medications Acetaminophen (Tylenol) 650 mg PO Q4H PRN PRN Reason: Pain MILD(1-3)/Fever >100.5/VICENTE Acetaminophen/Hydrocodone Bitart ([place] 5/325) 2 each PO Q6H PRN PRN Reason: Pain, Moderate (4-6) Sodium Chloride (Nacl 0.9% 1000 Ml) 1,000 mls @ 30 mls/hr IV DIRECT ANGEL Alteplase, Recombinant 10 mg/ (Sodium Chloride) 250 mls @ 10 mls/hr EKOSDLUMEN DIRECT ANGEL Last Admin: 12/22/19 01:45 Dose: 10 mls Documented by: Alteplase, Recombinant 10 mg/ (Sodium Chloride) 250 mls @ 10 mls/hr IV DIRECT ANGEL Last Admin: 12/22/19 01:45 Dose: 10 mls Documented by: Sodium Chloride (Nacl 0.9% 1000 Ml) 1,000 mls @ 30 mls/hr SHEATH DIRECT ANGEL Last Admin: 12/22/19 01:45 Dose: 35 mls Documented by: Sodium Chloride (Nacl 0.9% 1000 Ml) 1,000 mls @ 35 mls/hr EKOSCLUMEN DIRECT ANGEL Sodium Chloride (Nacl 0.9% 1000 Ml) 1,000 mls @ 30 mls/hr SHEATH DIRECT ANGEL Last Admin: 12/22/19 00:00 Dose: 130 mls Documented by: Sodium Chloride (Nacl 0.9% 1000 Ml) 1,000 mls @ 35 mls/hr EKOSCLUMEN DIRECT ANGEL Heparin Sodium/Sodium Chloride (Heparin/ 0.45% Nacl-25,000 Unit/500 Ml) 25,000 unit in 500 mls @ 10 mls/hr SHEATH DIRECT ANGEL; Protocol Last Admin: 12/22/19 01:45 Dose: 10 mls Documented by: Heparin Sodium/Sodium Chloride (Heparin/ 0.45% Nacl-25,000 Unit/500 Ml) 25,000 unit in 500 mls @ 10 mls/hr SHEATH DIRECT ANGEL; Protocol Last Admin: 12/22/19 01:45 Dose: 10 mls Documented by: Sodium Bicarbonate 100 meq/ (Dextrose) 1,100 mls @ 75 mls/hr IV DIRECT ANGEL Piperacillin Sod/Tazobactam Sod (Zosyn/Ns 2.25 Gm/50ml) 2.25 gm in 50 mls @ 100 mls/hr IV Q6HR ANGEL; Protocol Morphine Sulfate (Morphine) 4 mg IV Q4H PRN PRN Reason: Pain , Severe (7-10) Morphine Sulfate (Morphine) 2 mg IV Q4H PRN PRN Reason: Pain, Moderate (4-6) Ondansetron HCl (Zofran) 4 mg IV Q8H PRN PRN Reason: Nausea And Vomiting Last Admin: 12/22/19 01:22 Dose: 4 mg Documented by: Sodium Chloride (Sodium Chloride Flush Syringe 10 Ml) 10 ml IV BID ANGEL Sodium Chloride (Sodium Chloride Flush Syringe 10 Ml) 10 ml IV PRN PRN PRN Reason: LINE FLUSH Review of Systems - Constitutional no fever, no chills, no chronic pain - Cardiovascular shortness of breath, no chest pain - Respiratory no cough - Gastrointestinal no abdominal pain, no nausea, no vomiting, no loss of appetite, no dyspepsia/bloating - Muskuloskeletal no low back pain - Integumentary no pruritis, no jaundice Exam Vital Signs Pulse Resp Pulse Ox 116 H 25 H 94 12/21/19 19:38 12/21/19 19:38 12/21/19 19:38 - General physical appearance Positive: well developed, well nourished, no distress, no pain, other (very pleasant) - Eyes Positive: normal occular movement. Negative: icteric - Respiratory Positive: normal expansion, normal respiratory effort - Cardiovascular Rhythm: regular - Abdomen Abdomen: Present: soft, bowel sounds normal. Absent: tender, distended, guarding, rigid, surgical scars - Neurologic Neurologic: alert and oriented to time, place and person, motor strength and sensation are grossly intact - Psychiatric Psychiatric: appropriate mood/affect, intact judgment & insight, cooperative Results - Labs 12/22/19 10:35 12/22/19 04:47 Abnormal lab results 12/21/19 12/21/19 12/21/19 Range/Units 00:58 00:58 20:19 WBC 14.9 H (4.5-11.0) K/mm3 Hgb 11.2 L (11.8-15.2) gm/dl Hct 34.7 L (35.5-45.6) % MCHC (32-34) % RDW 16.8 H (13.2-15.2) % Lymph % (Auto) 8.2 L (13.4-35.0) % Worth % (Auto) (0.0-7.3) % Worth # (0.0-0.8) K/mm3 Seg Neutrophils % 87.2 H (40.0-70.0) % Seg Neutrophils # 13.0 H (1.8-7.7) K/mm3 PT (12.2-14.9) Sec. INR (0.87-1.13) APTT (24.2-36.6) Sec. D-Dimer (0-234) ng/mlDDU Heparin Anti-Xa Level (0.3-0.7) U.I./ml Potassium (3.6-5.0) mmol/L Chloride (98-107) mmol/L Carbon Dioxide 16 L (22-30) mmol/L BUN 22 H (9-20) mg/dL Creatinine 2.3 H (0.8-1.5) mg/dL Glucose 203 H (75-100) mg/dL POC Glucose 232 H (70-105) Lactic Acid (0.7-2.0) mmol/L Alkaline Phosphatase (35-129) units/L Troponin T (0.00-0.029) ng/mL Albumin (3.9-5) g/dL HDL Cholesterol (40-59) mg/dL 12/21/19 12/21/19 12/21/19 Range/Units 20:29 20:29 20:29 WBC 12.1 H (4.5-11.0) K/mm3 Hgb 11.5 L (11.8-15.2) gm/dl Hct (35.5-45.6) % MCHC 31 L (32-34) % RDW 16.9 H (13.2-15.2) % Lymph % (Auto) (13.4-35.0) % Worth % (Auto) (0.0-7.3) % Worth # (0.0-0.8) K/mm3 Seg Neutrophils % 81.1 H (40.0-70.0) % Seg Neutrophils # 9.8 H (1.8-7.7) K/mm3 PT (12.2-14.9) Sec. INR (0.87-1.13) APTT (24.2-36.6) Sec. D-Dimer > 66635 H (0-234) ng/mlDDU Heparin Anti-Xa Level (0.3-0.7) U.I./ml Potassium 3.3 L (3.6-5.0) mmol/L Chloride (98-107) mmol/L Carbon Dioxide 16 L (22-30) mmol/L BUN (9-20) mg/dL Creatinine 2.1 H (0.8-1.5) mg/dL Glucose 292 H (75-100) mg/dL POC Glucose (70-105) Lactic Acid (0.7-2.0) mmol/L Alkaline Phosphatase 178 H (35-129) units/L Troponin T 0.241 H* (0.00-0.029) ng/mL Albumin 3.6 L (3.9-5) g/dL HDL Cholesterol 27 L (40-59) mg/dL 12/21/19 12/21/19 12/21/19 Range/Units 20:29 20:36 23:59 WBC (4.5-11.0) K/mm3 Hgb (11.8-15.2) gm/dl Hct (35.5-45.6) % MCHC (32-34) % RDW (13.2-15.2) % Lymph % (Auto) (13.4-35.0) % Worth % (Auto) (0.0-7.3) % Worth # (0.0-0.8) K/mm3 Seg Neutrophils % (40.0-70.0) % Seg Neutrophils # (1.8-7.7) K/mm3 PT 16.5 H (12.2-14.9) Sec. INR 1.36 H (0.87-1.13) APTT (24.2-36.6) Sec. D-Dimer (0-234) ng/mlDDU Heparin Anti-Xa Level (0.3-0.7) U.I./ml Potassium (3.6-5.0) mmol/L Chloride (98-107) mmol/L Carbon Dioxide (22-30) mmol/L BUN (9-20) mg/dL Creatinine (0.8-1.5) mg/dL Glucose (75-100) mg/dL POC Glucose (70-105) Lactic Acid 7.80 H* (0.7-2.0) mmol/L Alkaline Phosphatase (35-129) units/L Troponin T 0.570 H* D (0.00-0.029) ng/mL Albumin (3.9-5) g/dL HDL Cholesterol (40-59) mg/dL 12/21/19 12/22/19 12/22/19 Range/Units 23:59 04:47 04:47 WBC (4.5-11.0) K/mm3 Hgb (11.8-15.2) gm/dl Hct (35.5-45.6) % MCHC (32-34) % RDW (13.2-15.2) % Lymph % (Auto) (13.4-35.0) % Worth % (Auto) (0.0-7.3) % Worth # (0.0-0.8) K/mm3 Seg Neutrophils % (40.0-70.0) % Seg Neutrophils # (1.8-7.7) K/mm3 PT 18.5 H (12.2-14.9) Sec. INR 1.58 H (0.87-1.13) APTT 103.1 H* (24.2-36.6) Sec. D-Dimer (0-234) ng/mlDDU Heparin Anti-Xa Level 1.39 H (0.3-0.7) U.I./ml Potassium (3.6-5.0) mmol/L Chloride (98-107) mmol/L Carbon Dioxide (22-30) mmol/L BUN (9-20) mg/dL Creatinine (0.8-1.5) mg/dL Glucose (75-100) mg/dL POC Glucose (70-105) Lactic Acid 5.80 H* (0.7-2.0) mmol/L Alkaline Phosphatase (35-129) units/L Troponin T (0.00-0.029) ng/mL Albumin (3.9-5) g/dL HDL Cholesterol (40-59) mg/dL 12/22/19 12/22/19 12/22/19 Range/Units 04:47 04:47 10:35 WBC 13.8 H 12.7 H (4.5-11.0) K/mm3 Hgb 11.4 L 11.1 L (11.8-15.2) gm/dl Hct 34.8 L (35.5-45.6) % MCHC (32-34) % RDW 16.9 H 16.7 H (13.2-15.2) % Lymph % (Auto) 12.0 L (13.4-35.0) % Worth % (Auto) 8.3 H (0.0-7.3) % Worth # 1.1 H (0.0-0.8) K/mm3 Seg Neutrophils % 82.6 H 71.5 H (40.0-70.0) % Seg Neutrophils # 11.4 H 9.1 H (1.8-7.7) K/mm3 PT (12.2-14.9) Sec. INR (0.87-1.13) APTT (24.2-36.6) Sec. D-Dimer (0-234) ng/mlDDU Heparin Anti-Xa Level (0.3-0.7) U.I./ml Potassium (3.6-5.0) mmol/L Chloride 108.4 H (98-107) mmol/L Carbon Dioxide 14 L (22-30) mmol/L BUN 24 H (9-20) mg/dL Creatinine 2.3 H (0.8-1.5) mg/dL Glucose 160 H (75-100) mg/dL POC Glucose (70-105) Lactic Acid (0.7-2.0) mmol/L Alkaline Phosphatase (35-129) units/L Troponin T (0.00-0.029) ng/mL Albumin (3.9-5) g/dL HDL Cholesterol (40-59) mg/dL Diabetes panel 12/21/19 12/21/19 12/21/19 Range/Units 00:58 20:29 23:59 Sodium 145 145 (137-145) mmol/L Potassium 4.1 3.3 L (3.6-5.0) mmol/L Chloride 106.6 106.6 (98-107) mmol/L Carbon Dioxide 16 L 16 L (22-30) mmol/L BUN 22 H 19 (9-20) mg/dL Creatinine 2.3 H 2.1 H (0.8-1.5) mg/dL Glucose 203 H 292 H (75-100) mg/dL Hemoglobin A1c (4-6) % Calcium 8.7 9.4 Cancelled (8.4-10.2) mg/dL AST 32 (5-40) units/L ALT 18 (7-56) units/L Alkaline Phosphatase 178 H (35-129) units/L Total Protein 7.0 (6.3-8.2) g/dL Albumin 3.6 L (3.9-5) g/dL Triglycerides 124 (2-149) mg/dL HDL Cholesterol 27 L (40-59) mg/dL 12/22/19 12/22/19 Range/Units 04:47 04:47 Sodium 145 (137-145) mmol/L Potassium 4.5 D (3.6-5.0) mmol/L Chloride 108.4 H (98-107) mmol/L Carbon Dioxide 14 L (22-30) mmol/L BUN 24 H (9-20) mg/dL Creatinine 2.3 H (0.8-1.5) mg/dL Glucose 160 H (75-100) mg/dL Hemoglobin A1c 4.9 (4-6) % Calcium 8.6 (8.4-10.2) mg/dL AST (5-40) units/L ALT (7-56) units/L Alkaline Phosphatase (35-129) units/L Total Protein (6.3-8.2) g/dL Albumin (3.9-5) g/dL Triglycerides (2-149) mg/dL HDL Cholesterol (40-59) mg/dL Calcium panel 12/21/19 12/21/19 12/21/19 Range/Units 00:58 20:29 23:59 Calcium 8.7 9.4 Cancelled (8.4-10.2) mg/dL Albumin 3.6 L (3.9-5) g/dL 12/22/19 Range/Units 04:47 Calcium 8.6 (8.4-10.2) mg/dL Albumin (3.9-5) g/dL Pituitary panel 12/21/19 12/21/19 12/21/19 Range/Units 00:58 20:29 23:59 Sodium 145 145 (137-145) mmol/L Potassium 4.1 3.3 L (3.6-5.0) mmol/L Chloride 106.6 106.6 (98-107) mmol/L Carbon Dioxide 16 L 16 L (22-30) mmol/L BUN 22 H 19 (9-20) mg/dL Creatinine 2.3 H 2.1 H (0.8-1.5) mg/dL Glucose 203 H 292 H (75-100) mg/dL Calcium 8.7 9.4 Cancelled (8.4-10.2) mg/dL 12/22/19 Range/Units 04:47 Sodium 145 (137-145) mmol/L Potassium 4.5 D (3.6-5.0) mmol/L Chloride 108.4 H (98-107) mmol/L Carbon Dioxide 14 L (22-30) mmol/L BUN 24 H (9-20) mg/dL Creatinine 2.3 H (0.8-1.5) mg/dL Glucose 160 H (75-100) mg/dL Calcium 8.6 (8.4-10.2) mg/dL Adrenal panel 12/21/19 12/21/19 12/21/19 Range/Units 00:58 20:29 23:59 Sodium 145 145 (137-145) mmol/L Potassium 4.1 3.3 L (3.6-5.0) mmol/L Chloride 106.6 106.6 (98-107) mmol/L Carbon Dioxide 16 L 16 L (22-30) mmol/L BUN 22 H 19 (9-20) mg/dL Creatinine 2.3 H 2.1 H (0.8-1.5) mg/dL Glucose 203 H 292 H (75-100) mg/dL Calcium 8.7 9.4 Cancelled (8.4-10.2) mg/dL Total Bilirubin 0.60 (0.1-1.2) mg/dL AST 32 (5-40) units/L ALT 18 (7-56) units/L Alkaline Phosphatase 178 H (35-129) units/L Total Protein 7.0 (6.3-8.2) g/dL Albumin 3.6 L (3.9-5) g/dL 12/22/19 Range/Units 04:47 Sodium 145 (137-145) mmol/L Potassium 4.5 D (3.6-5.0) mmol/L Chloride 108.4 H (98-107) mmol/L Carbon Dioxide 14 L (22-30) mmol/L BUN 24 H (9-20) mg/dL Creatinine 2.3 H (0.8-1.5) mg/dL Glucose 160 H (75-100) mg/dL Calcium 8.6 (8.4-10.2) mg/dL Total Bilirubin (0.1-1.2) mg/dL AST (5-40) units/L ALT (7-56) units/L Alkaline Phosphatase (35-129) units/L Total Protein (6.3-8.2) g/dL Albumin (3.9-5) g/dL - Imaging CT scan - abdomen: report reviewed, image reviewed CT scan - pelvis: report reviewed, image reviewed Assessment and Plan - Patient Problems (1) Abnormal CT of the abdomen Current Visit: Yes Status: Acute Plan to address problem: Pt stable. Other than a noncontrasted CT scan of the abdomen, there is no other evidence to suggest pancreatitis and or acute cholecystitis. Patient has a completely benign exam. I will go ahead and start him on a clear liquid diet. We will check labs in the morning to confirm that there is no significant evidence of pancreatitis or cholecystitis. If those labs are normal, his diet may be advanced as tolerated. We will follow-up on labs tomorrow. Please call with any questions. Time=30min
[2019-12-22] MEDS: SODIUM BICARBONATE 100 MEQ in DEXTROSE 5% IN WATER 1,000 ML IV SCH (14:28)
[2019-12-22 17:17] LABS: Basophils % (Auto) 0.2 % (0.0-1.8); Eosinophils % (Auto) 0.1 % (0.0-4.3); Hematocrit 33.4 % (35.5-45.6); Hemoglobin 10.8 gm/dl (11.8-15.2); Lymphocytes # (Auto) 2.2 K/mm3 (1.2-5.4); Lymphocytes % (Auto) 21.3 % (13.4-35.0); Mean Corpuscular HGB Conc 32 % (32-34); Mean Corpuscular Volume 87 fl (84-94); Monocytes # (Auto) 0.9 K/mm3 (0.0-0.8); Monocytes % (Auto) 8.6 % (0.0-7.3); Platelet Count 196 K/mm3 (140-440); Red Blood Count 3.83 M/mm3 (3.65-5.03); Red Cell Distribution Width 17.1 % (13.2-15.2)
[2019-12-22] MEDS: PIPERACIL-TAZO 2.25 GM/50 ML 2.25 GM/50 ML BAG IV SCH (18:07)
[2019-12-22 18:22] LABS: Amphetamine Screen,Urine PRESUMPTIVE NEGATIVE; Cannabinoid Screen,Urine PRESUMPTIVE NEGATIVE; Cocaine Screen,Urine PRESUMPTIVE NEGATIVE; Methadone Screen,Urine PRESUMPTIVE NEGATIVE; Opiate Screen,Urine PRESUMPTIVE NEGATIVE
[2019-12-22 18:25] LABS: Bacteria,Urine 1+ /HPF (Negative); Bilirubin,Urine NEG (Negative); Blood,Urine SM (Negative); Color,Urine Amber (Yellow); Mucus,Urine 1+ /HPF
[2019-12-22 18:43] LABS: Benzodiazepines Screen,Urine PRESUMPTIVE POSITIVE
[2019-12-22] MEDS ORDERED: HEPARIN 10,000 UNITS/10 ML VIAL ONE (19:58)
[2019-12-22] MEDS ORDERED: ceFAZolin/Water 2 GM/20 ML 2 GM/20 ML SYRINGE IV ONE (19:59)
[2019-12-22] MEDS: fentaNYL 100 MCG/2 ML INJ ONE ×2 (20:07→20:17)
[2019-12-22] MEDS: MIDAZOLAM 2 MG/2 ML INJ ONE ×2 (20:07→20:17)
[2019-12-22] MEDS: LIDOCAINE (2%) 20 MG/1 ML VIAL 20 ML MDV INFILTRATI ONE ×2 (20:08→20:19)
[2019-12-22] MEDS: SODIUM CHLORIDE 0.9% 500 ML 500 ML ONE ×2 (20:09→20:10)
[2019-12-22] MEDS: HEPARIN/NS 5000 UNIT/500ML 500 ML IR ONE ×2 (20:10→20:12)
[2019-12-22] MEDS: HEPARIN/ 0.45% NACL DRIP 25,000 UNIT/500 ML BAG IV SCH (20:46)
--- NOTE | 2019-12-22 20:46 | Operative Report ---
Operative Report Operative Report: Date of procedure: 12/22/2019 Pre-operative diagnosis: Bilateral Pulmonary Emboli Status Post Bilateral Pulmo nary Artery Thrombolysis Post-operative diagnosis: Same Procedure(s): 1. Removal of Bilateral Pulmonary Artery EKOS Thrombolysis Catheters 2. Inferior Venacavogram 3. Placement of Johnston IVC Filter 4. Radiologic Supervision With Interpretation Surgeon: Jason Hernandez MD Imager: None Anesthesia: Local, IV sedation EBL: None Contrast: 10 cc Visipaque Counts: Correct Complications: None Condition: Stable Findings: No Evidence of Thrombus within the IVC and Successful Placement of IVC Filter. Specimen: None Indication: The patient is a 64-year-old male with a history of symptomatic bilateral pulmonary artery emboli who underwent thrombolysis and returns for removal of the catheters. CT angiogram of the chest revealed stranding around his pancreas and a CT of the abdomen and pelvis confirmed stranding as well as pericholecystic fluid and thickening of the gallbladder suggestive of cholecystitis. In addition to removal of the thrombolysis catheters he will require placement of an IVC filter in case he requires a cholecystectomy which will require cessation of his anticoagulation and puts him at risk of a DVT and pulmonary embolus in the perioperative period. He was given the risk, benefits, and alternative procedures and consented to the procedure. 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 Lidocaine was used to anesthetize the skin and soft tissue surrounding the sheaths and then the ultrasound wire was removed from left pulmonary artery EKOS catheter and the catheter was pulled into the inferior vena cava and a 0.035 Bentson wire was advanced into the superior vena cava. The right EKOS catheter as well as the ultrasound wire were pulled out together. A hand-injection was performed through the 6 [place]an sheath using a total of 10 cc of Visipaque and demonstrated that the inferior vena cava was of normal caliber and there was no evidence of thrombus within the IVC. The renal veins appeared to be at the level of L1. The 6 [place]an sheath with the Bentson wire was pulled leaving the Bentson wire in place and the the filter delivery sheath was advanced, by Seldinger technique, into the inferior vena cava with the tip well above the level of the renal veins. The filter was then inserted and positioned with the apex in the middle of the body of L2. The delivery sheath was withdrawn deploying the filter in place without any evidence of tilt. The delivery catheter as well as the additional 6 [place]an sheath were then pulled and manual pressure was held to achieve hemostasis. Once hemostasis was achieved sterile dressings were applied to the groin. The patient tolerated the procedure well, all sponge needle and instrument counts correct, the patient was taken to the intensive care unit in stable condition.
[2019-12-22 21:32] LABS: Hematocrit 32.3 % (35.5-45.6); Hemoglobin 10.5 gm/dl (11.8-15.2)
[2019-12-22 21:42] LABS: INR 1.36 (0.87-1.13)
[2019-12-22 21:43] LABS: Partial Thromboplastin Time 37.9 Sec. (24.2-36.6)
[2019-12-23] MEDS: PIPERACIL-TAZO 2.25 GM/50 ML 2.25 GM/50 ML BAG IV SCH ×4 (02:14→17:27)
[2019-12-23] MEDS: ALTEPLASE 2 MG INJ ONE (03:13)
[2019-12-23 03:30] LABS: Hematocrit 32.3 % (35.5-45.6); Hemoglobin 10.3 gm/dl (11.8-15.2); Mean Corpuscular HGB Conc 32 % (32-34); Mean Corpuscular Volume 87 fl (84-94); Platelet Count 206 K/mm3 (140-440); Red Blood Count 3.73 M/mm3 (3.65-5.03); Red Cell Distribution Width 17.3 % (13.2-15.2)
[2019-12-23 03:53] LABS: Alanine Aminotransferase 186 units/L (7-56); Albumin 3.1 g/dL (3.9-5); BUN/Creatinine Ratio 13; Bilirubin,Direct < 0.2 mg/dL (0-0.2); Blood Urea Nitrogen 32 mg/dL (9-20); Calcium 8.5 mg/dL (8.4-10.2); Hemolysis Index 1
[2019-12-23] MEDS: SODIUM BICARBONATE 100 MEQ in DEXTROSE 5% IN WATER 1,000 ML IV SCH (04:37)
--- NOTE | 2019-12-23 10:33 | Progress Note ---
Assessment and Plan clinically improving eckos removed yesterday on iv heparin tte reviewed w/ pt abnormal abd ct/surg c/s reviewed cont IVF VENU - 2.5 add hydralazine for better bp control hold off on shaista (VENU) or AVB (SB) ~30 min spent - Patient Problems (1) Abnormal CT of the abdomen Current Visit: Yes Status: Acute (2) Acute renal failure Current Visit: Yes Status: Acute Qualifiers: Acute renal failure type: unspecified Qualified Code(s): N17.9 - Acute kidney failure, unspecified (3) Elevated troponin Current Visit: Yes Status: Acute (4) Lactic acid acidosis Current Visit: Yes Status: Acute (5) Pulmonary emboli Current Visit: Yes Status: Acute Qualifiers: Pulmonary embolism type: unspecified Chronicity: acute Acute cor pulmonale presence: with acute cor pulmonale Qualified Code(s): I26.09 - Other pulmonary embolism with acute cor pulmonale (6) SOB (shortness of breath) Current Visit: Yes Status: Acute (7) Tachycardia Current Visit: Yes Status: Acute (8) Thickening of wall of gallbladder Current Visit: Yes Status: Acute Subjective Date of service: 12/23/19 Interval history: feels better, tired Objective Vital Signs Temp Pulse Pulse Resp BP Pulse Ox 12/23/19 09:30 65 17 169/102 98 12/23/19 09:00 61 17 168/101 98 12/23/19 08:31 63 12 172/105 94 12/23/19 08:00 97.8 F 64 14 168/102 97 12/23/19 07:30 63 15 176/105 100 12/23/19 07:00 59 L 18 161/102 100 12/23/19 06:30 58 L 16 134/90 99 12/23/19 06:00 57 L 56 L 29 H 154/97 99 12/23/19 05:30 58 L 15 137/89 97 12/23/19 05:00 57 L 22 161/92 100 12/23/19 04:45 58 L 16 160/100 99 12/23/19 04:30 58 L 16 139/91 100 12/23/19 04:15 59 L 18 154/94 97 12/23/19 04:00 58 L 13 154/92 100 12/23/19 03:45 60 17 154/92 98 12/23/19 03:33 98.4 F 12/23/19 03:30 60 17 156/94 98 12/23/19 03:15 59 L 17 156/94 96 12/23/19 03:00 62 19 161/103 98 12/23/19 02:45 62 17 161/103 95 12/23/19 02:30 61 15 150/103 100 12/23/19 02:15 60 15 146/93 97 12/23/19 02:00 58 L 13 138/90 100 12/23/19 01:45 60 15 138/90 99 12/23/19 01:30 62 18 147/98 99 12/23/19 01:16 58 L 13 131/84 98 12/23/19 01:00 59 L 13 128/83 99 12/23/19 00:45 60 12 134/92 99 12/23/19 00:30 60 18 150/104 100 12/23/19 00:15 59 L 15 130/92 99 12/23/19 00:00 58 L 14 130/92 100 12/22/19 23:45 59 L 14 139/94 98 12/22/19 23:30 60 14 132/89 99 12/22/19 23:15 60 15 125/90 99 12/22/19 23:06 97.6 F 12/22/19 23:04 59 L 14 128/90 99 12/22/19 23:00 60 16 128/90 99 12/22/19 22:46 60 17 145/95 100 20 22:30 60 14 151/100 100 12/22/19 22:16 60 17 151/100 100 20 22:00 64 15 142/97 0520 21:45 62 16 142/97 93 0520 21:30 62 18 142/92 99 0520 21:29 95 0520 21:15 63 18 142/92 99 0520 21:00 64 17 132/95 99 0520 20:56 72 156/96 20 20:00 98.2 F 20 100 0520 19:15 64 17 156/96 98 20 19:00 64 16 137/97 99 0520 18:45 64 14 137/90 100 05 18:30 63 19 138/87 99 12/22/19 18:15 62 10 L 136/83 100 12/22/19 18:00 63 14 150/96 97 12/22/19 17:45 64 18 150/99 100 12/22/19 17:30 62 13 140/94 98 12/22/19 17:15 65 17 138/96 98 12/22/19 17:00 63 17 135/97 97 12/22/19 16:45 63 19 144/93 99 12/22/19 16:30 62 20 132/92 98 12/22/19 16:15 62 10 L 129/92 100 12/22/19 16:00 98.1 F 62 17 117/90 100 12/22/19 15:46 64 16 121/85 12/22/19 15:30 62 18 127/91 97 12/22/19 15:15 62 15 121/91 99 12/22/19 15:00 63 17 128/93 96 12/22/19 14:45 61 16 122/87 99 12/22/19 14:30 63 17 130/93 100 12/22/19 14:15 62 15 120/82 97 12/22/19 14:00 62 17 123/84 99 12/22/19 13:45 64 13 117/86 97 12/22/19 13:30 62 17 127/88 99 12/22/19 13:15 63 13 126/90 100 12/22/19 13:00 65 19 124/93 99 12/22/19 12:45 64 20 126/94 96 12/22/19 12:30 63 14 141/96 100 12/22/19 12:15 65 19 134/100 100 12/22/19 12:00 97.8 F 67 13 133/98 99 12/22/19 11:45 66 18 127/94 99 12/22/19 11:30 65 17 124/84 100 12/22/19 11:15 64 13 134/95 100 12/22/19 11:00 65 17 127/89 12/22/19 10:45 65 14 124/85 100 12/22/19 10:30 66 22 129/90 100 - Labs and Meds Cardiac Enzymes 12/23/19 Range/Units 02:30 AST 249 H (5-40) units/L Coagulation 12/22/19 Range/Units 21:17 PT 16.5 H (12.2-14.9) Sec. INR 1.36 H (0.87-1.13) APTT 37.9 H (24.2-36.6) Sec. CBC 12/22/19 12/22/19 12/22/19 Range/Units 10:35 16:38 21:17 WBC 12.7 H 10.5 (4.5-11.0) K/mm3 RBC 4.00 3.83 (3.65-5.03) M/mm3 Hgb 11.1 L 10.8 L 10.5 L (11.8-15.2) gm/dl Hct 34.8 L 33.4 L 32.3 L (35.5-45.6) % Plt Count 204 196 211 (140-440) K/mm3 Lymph # 2.5 2.2 (1.2-5.4) K/mm3 [place] # 1.1 H 0.9 H (0.0-0.8) K/mm3 Eos # 0.0 0.0 (0.0-0.4) K/mm3 Baso # 0.0 0.0 (0.0-0.1) K/mm3 12/23/19 Range/Units 02:30 WBC 9.7 (4.5-11.0) K/mm3 RBC 3.73 (3.65-5.03) M/mm3 Hgb 10.3 L (11.8-15.2) gm/dl Hct 32.3 L (35.5-45.6) % Plt Count 206 (140-440) K/mm3 Lymph # (1.2-5.4) K/mm3 [place] # (0.0-0.8) K/mm3 Eos # (0.0-0.4) K/mm3 Baso # (0.0-0.1) K/mm3 Comprehensive Metabolic Panel 12/23/19 Range/Units 02:30 Sodium 147 H (137-145) mmol/L Potassium 4.2 (3.6-5.0) mmol/L Chloride 109.1 H (98-107) mmol/L Carbon Dioxide 22 D (22-30) mmol/L BUN 32 H (9-20) mg/dL Creatinine 2.5 H (0.8-1.5) mg/dL Glucose 133 H (75-100) mg/dL Calcium 8.5 (8.4-10.2) mg/dL Direct Bilirubin < 0.2 (0-0.2) mg/dL Indirect Bilirubin 0.1 mg/dL AST 249 H (5-40) units/L ALT 186 H (7-56) units/L Alkaline Phosphatase 134 H (35-129) units/L Total Protein 6.7 (6.3-8.2) g/dL Albumin 3.1 L (3.9-5) g/dL - Imaging and Cardiology EKG: image reviewed
--- NOTE | 2019-12-23 11:02 | Progress Note ---
Assessment and Plan 64 y/o male with bilateral PE s/p EKOS for catheter directed thrombolysis 1. Continue anticoagulation as per vascular, hopeful to start orals soon. Need to find out insurance first before oral outpatient therapy can be recommended. 2. Stable for transfer to [facility] 3. Follow up any cardiology recs 4. Will need full hypercoag work up. Subjective Date of service: 12/23/19 Interval history: No acute events. Had catheters taken out yesterday and tolerated well. Lizzy luated by General Surgery as well. On a diet and tolerating. Objective Vital Signs - 12hr 12/22/19 12/22/19 12/22/19 23:00 23:04 23:06 Temperature 97.6 F Pulse Rate 60 59 L Pulse Rate [ None] Respiratory 16 14 Rate Blood Pressure 128/90 128/90 O2 Sat by Pulse 99 99 Oximetry 12/22/19 12/22/19 12/22/19 23:15 23:30 23:45 Temperature Pulse Rate 60 60 59 L Pulse Rate [ None] Respiratory 15 14 14 Rate Blood Pressure 125/90 132/89 139/94 O2 Sat by Pulse 99 99 98 Oximetry 12/23/19 12/23/19 12/23/19 00:00 00:15 00:30 Temperature Pulse Rate 58 L 59 L 60 Pulse Rate [ None] Respiratory 14 15 18 Rate Blood Pressure 130/92 130/92 150/104 O2 Sat by Pulse 100 99 100 Oximetry 12/23/19 12/23/19 12/23/19 00:45 01:00 01:16 Temperature Pulse Rate 60 59 L 58 L Pulse Rate [ None] Respiratory 12 13 13 Rate Blood Pressure 134/92 128/83 131/84 O2 Sat by Pulse 99 99 98 Oximetry 12/23/19 12/23/19 12/23/19 01:30 01:45 02:00 Temperature Pulse Rate 62 60 58 L Pulse Rate [ None] Respiratory 18 15 13 Rate Blood Pressure 147/98 138/90 138/90 O2 Sat by Pulse 99 99 100 Oximetry 12/23/19 12/23/19 12/23/19 02:15 02:30 02:45 Temperature Pulse Rate 60 61 62 Pulse Rate [ None] Respiratory 15 15 17 Rate Blood Pressure 146/93 150/103 161/103 O2 Sat by Pulse 97 100 95 Oximetry 12/23/19 12/23/19 12/23/19 03:00 03:15 03:30 Temperature Pulse Rate 62 59 L 60 Pulse Rate [ None] Respiratory 19 17 17 Rate Blood Pressure 161/103 156/94 156/94 O2 Sat by Pulse 98 96 98 Oximetry 12/23/19 12/23/19 12/23/19 03:33 03:45 04:00 Temperature 98.4 F Pulse Rate 60 58 L Pulse Rate [ None] Respiratory 17 13 Rate Blood Pressure 154/92 154/92 O2 Sat by Pulse 98 100 Oximetry 12/23/19 12/23/19 12/23/19 04:15 04:30 04:45 Temperature Pulse Rate 59 L 58 L 58 L Pulse Rate [ None] Respiratory 18 16 16 Rate Blood Pressure 154/94 139/91 160/100 O2 Sat by Pulse 97 100 99 Oximetry 12/23/19 12/23/19 12/23/19 05:00 05:30 06:00 Temperature Pulse Rate 57 L 58 L 57 L Pulse Rate [ 56 L None] Respiratory 22 15 29 H Rate Blood Pressure 161/92 137/89 154/97 O2 Sat by Pulse 100 97 99 Oximetry 12/23/19 12/23/19 12/23/19 06:30 07:00 07:30 Temperature Pulse Rate 58 L 59 L 63 Pulse Rate [ None] Respiratory 16 18 15 Rate Blood Pressure 134/90 161/102 176/105 O2 Sat by Pulse 99 100 100 Oximetry 12/23/19 12/23/19 12/23/19 08:00 08:31 09:00 Temperature 97.8 F Pulse Rate 64 63 61 Pulse Rate [ None] Respiratory 14 12 17 Rate Blood Pressure 168/102 172/105 168/101 O2 Sat by Pulse 97 94 98 Oximetry 12/23/19 09:30 Temperature Pulse Rate 65 Pulse Rate [ None] Respiratory 17 Rate Blood Pressure 169/102 O2 Sat by Pulse 98 Oximetry Constitutional: no acute distress, alert Eyes: non-icteric ENT: oropharynx moist Neck: supple, no JVD Effort: normal Ascultation: Bilateral: clear Percussion: Bilateral: not dull Tactile fremitus: Bilateral: normal Cardiovascular: regular rate and rhythm Gastrointestinal: normoactive bowel sounds, soft, non-tender CBC and BMP: 12/23/19 02:30 12/23/19 02:30 ABG, PT/INR, D-dimer: PT/INR, D-dimer PT 16.5 Sec. (12.2-14.9) H 12/22/19 21:17 INR 1.36 (0.87-1.13) H 12/22/19 21:17 D-Dimer > 01278 ng/mlDDU (0-234) H 12/21/19 20:29 Abnormal lab findings: Abnormal Labs 12/21/19 12/21/19 12/21/19 00:58 00:58 20:19 WBC 14.9 H Hgb 11.2 L Hct 34.7 L MCHC RDW 16.8 H Lymph % (Auto) 8.2 L [place] % (Auto) [place] # Seg Neutrophils % 87.2 H Seg Neutrophils # 13.0 H PT INR APTT D-Dimer Heparin Anti-Xa Level Sodium Potassium Chloride Carbon Dioxide 16 L BUN 22 H Creatinine 2.3 H Glucose 203 H POC Glucose 232 H Lactic Acid AST ALT Alkaline Phosphatase Troponin T Albumin HDL Cholesterol Ur Specific [place] Urine WBC (Auto) 12/21/19 12/21/19 12/21/19 20:29 20:29 20:29 WBC 12.1 H Hgb 11.5 L Hct MCHC 31 L RDW 16.9 H Lymph % (Auto) [place] % (Auto) [place] # Seg Neutrophils % 81.1 H Seg Neutrophils # 9.8 H PT INR APTT D-Dimer > 46665 H Heparin Anti-Xa Level Sodium Potassium 3.3 L Chloride Carbon Dioxide 16 L BUN Creatinine 2.1 H Glucose 292 H POC Glucose Lactic Acid AST ALT Alkaline Phosphatase 178 H Troponin T 0.241 H* Albumin 3.6 L HDL Cholesterol 27 L Ur Specific [place] Urine WBC (Auto) 12/21/19 12/21/19 12/21/19 20:29 20:36 23:59 WBC Hgb Hct MCHC RDW Lymph % (Auto) [place] % (Auto) [place] # Seg Neutrophils % Seg Neutrophils # PT 16.5 H INR 1.36 H APTT D-Dimer Heparin Anti-Xa Level Sodium Potassium Chloride Carbon Dioxide BUN Creatinine Glucose POC Glucose Lactic Acid 7.80 H* AST ALT Alkaline Phosphatase Troponin T 0.570 H* D Albumin HDL Cholesterol Ur Specific [place] Urine WBC (Auto) 12/21/19 12/22/19 12/22/19 23:59 04:47 04:47 WBC Hgb Hct MCHC RDW Lymph % (Auto) [place] % (Auto) [place] # Seg Neutrophils % Seg Neutrophils # PT 18.5 H INR 1.58 H APTT 103.1 H* D-Dimer Heparin Anti-Xa Level 1.39 H Sodium Potassium Chloride Carbon Dioxide BUN Creatinine Glucose POC Glucose Lactic Acid 5.80 H* AST ALT Alkaline Phosphatase Troponin T Albumin HDL Cholesterol Ur Specific [place] Urine WBC (Auto) 12/22/19 12/22/19 12/22/19 04:47 04:47 10:35 WBC 13.8 H 12.7 H Hgb 11.4 L 11.1 L Hct 34.8 L MCHC RDW 16.9 H 16.7 H Lymph % (Auto) 12.0 L [place] % (Auto) 8.3 H [place] # 1.1 H Seg Neutrophils % 82.6 H 71.5 H Seg Neutrophils # 11.4 H 9.1 H PT INR APTT D-Dimer Heparin Anti-Xa Level Sodium Potassium Chloride 108.4 H Carbon Dioxide 14 L BUN 24 H Creatinine 2.3 H Glucose 160 H POC Glucose Lactic Acid AST ALT Alkaline Phosphatase Troponin T Albumin HDL Cholesterol Ur Specific [place] Urine WBC (Auto) 12/22/19 12/22/19 12/22/19 16:38 17:55 21:17 WBC Hgb 10.8 L 10.5 L Hct 33.4 L 32.3 L MCHC RDW 17.1 H Lymph % (Auto) [place] % (Auto) 8.6 H [place] # 0.9 H Seg Neutrophils % Seg Neutrophils # PT INR APTT D-Dimer Heparin Anti-Xa Level Sodium Potassium Chloride Carbon Dioxide BUN Creatinine Glucose POC Glucose Lactic Acid AST ALT Alkaline Phosphatase Troponin T Albumin HDL Cholesterol Ur Specific [place] 1.056 H Urine WBC (Auto) 8.0 H 12/22/19 12/23/19 12/23/19 21:17 02:30 02:30 WBC Hgb 10.3 L Hct 32.3 L MCHC RDW 17.3 H Lymph % (Auto) [place] % (Auto) [place] # Seg Neutrophils % Seg Neutrophils # PT 16.5 H INR 1.36 H APTT 37.9 H D-Dimer Heparin Anti-Xa Level Sodium 147 H Potassium Chloride 109.1 H Carbon Dioxide BUN 32 H Creatinine 2.5 H Glucose 133 H POC Glucose Lactic Acid AST 249 H ALT 186 H Alkaline Phosphatase 134 H Troponin T Albumin 3.1 L HDL Cholesterol Ur Specific [place] Urine WBC (Auto)
[2019-12-23] MEDS: HEPARIN/ 0.45% NACL DRIP 25,000 UNIT/500 ML BAG IV SCH (11:26)
--- NOTE | 2019-12-23 13:17 | Progress Note ---
Assessment and Plan - Patient Problems (1) Abnormal CT of the abdomen Current Visit: Yes Status: Acute Plan to address problem: Pt stable. He continues to have a benign exam. Lipase is normal. LFTs are mildly elevated, but I favor hepatic congestion due to the recent PEs as a cause as opposed to cholecystitis. Patient is completely asymptomatic in regards to what we would expect for acute cholecystitis and/or pancreatitis. Patient tolerated the diet. Will advance to regular diet. If patient should develop symptoms of nausea, vomiting, and/or abdominal pain, then would order HIDA scan. Follow-up as needed. We will sign off. Please call with any questions. Time=10min Subjective Date of service: 12/23/19 Patient Reports: Positive: no new complaints, feels better, tolerating liquids well. Negative: nausea, vomiting Objective Vital Signs - 12hr 12/23/19 12/23/19 12/23/19 01:16 01:30 01:45 Temperature Pulse Rate 58 L 62 60 Pulse Rate [ None] Respiratory 13 18 15 Rate Respiratory Rate [Bilateral Foot] Blood Pressure 131/84 147/98 138/90 O2 Sat by Pulse 98 99 99 Oximetry 12/23/19 12/23/19 12/23/19 02:00 02:15 02:30 Temperature Pulse Rate 58 L 60 61 Pulse Rate [ None] Respiratory 13 15 15 Rate Respiratory Rate [Bilateral Foot] Blood Pressure 138/90 146/93 150/103 O2 Sat by Pulse 100 97 100 Oximetry 12/23/19 12/23/19 12/23/19 02:45 03:00 03:15 Temperature Pulse Rate 62 62 59 L Pulse Rate [ None] Respiratory 17 19 17 Rate Respiratory Rate [Bilateral Foot] Blood Pressure 161/103 161/103 156/94 O2 Sat by Pulse 95 98 96 Oximetry 12/23/19 12/23/19 12/23/19 03:30 03:33 03:45 Temperature 98.4 F Pulse Rate 60 60 Pulse Rate [ None] Respiratory 17 17 Rate Respiratory Rate [Bilateral Foot] Blood Pressure 156/94 154/92 O2 Sat by Pulse 98 98 Oximetry 12/23/19 12/23/19 12/23/19 04:00 04:15 04:30 Temperature Pulse Rate 58 L 59 L 58 L Pulse Rate [ None] Respiratory 13 18 16 Rate Respiratory Rate [Bilateral Foot] Blood Pressure 154/92 154/94 139/91 O2 Sat by Pulse 100 97 100 Oximetry 12/23/19 12/23/19 12/23/19 04:45 05:00 05:30 Temperature Pulse Rate 58 L 57 L 58 L Pulse Rate [ None] Respiratory 16 22 15 Rate Respiratory Rate [Bilateral Foot] Blood Pressure 160/100 161/92 137/89 O2 Sat by Pulse 99 100 97 Oximetry 12/23/19 12/23/19 12/23/19 06:00 06:30 07:00 Temperature Pulse Rate 57 L 58 L 59 L Pulse Rate [ 56 L None] Respiratory 29 H 16 18 Rate Respiratory Rate [Bilateral Foot] Blood Pressure 154/97 134/90 161/102 O2 Sat by Pulse 99 99 100 Oximetry 12/23/19 12/23/19 12/23/19 07:30 08:00 08:31 Temperature 97.8 F Pulse Rate 63 64 63 Pulse Rate [ None] Respiratory 15 19 12 Rate Respiratory Rate [Bilateral Foot] Blood Pressure 176/105 168/102 172/105 O2 Sat by Pulse 100 97 94 Oximetry 12/23/19 12/23/19 12/23/19 09:00 09:30 10:00 Temperature Pulse Rate 61 65 65 Pulse Rate [ None] Respiratory 17 17 17 Rate Respiratory 20 Rate [Bilateral Foot] Blood Pressure 168/101 169/102 150/88 O2 Sat by Pulse 98 98 99 Oximetry 12/23/19 12/23/19 12/23/19 10:30 11:00 11:31 Temperature Pulse Rate 63 60 58 L Pulse Rate [ None] Respiratory 18 16 14 Rate Respiratory Rate [Bilateral Foot] Blood Pressure 154/91 152/95 152/95 O2 Sat by Pulse 99 100 99 Oximetry 12/23/19 12:00 Temperature 98.2 F Pulse Rate Pulse Rate [ None] Respiratory Rate Respiratory Rate [Bilateral Foot] Blood Pressure O2 Sat by Pulse Oximetry - General physical appearance no distress, no pain, other (looks well) - Eyes normal occular movement - Respiratory normal expansion, normal respiratory effort - Abdomen soft, not tender, not distended - Psychiatric oriented to time, oriented to person, oriented to place, speech is normal, memory intact - Labs 12/23/19 02:30 12/23/19 02:30 Diabetes panel 12/23/19 Range/Units 02:30 Sodium 147 H (137-145) mmol/L Potassium 4.2 (3.6-5.0) mmol/L Chloride 109.1 H (98-107) mmol/L Carbon Dioxide 22 D (22-30) mmol/L BUN 32 H (9-20) mg/dL Creatinine 2.5 H (0.8-1.5) mg/dL Glucose 133 H (75-100) mg/dL Calcium 8.5 (8.4-10.2) mg/dL AST 249 H (5-40) units/L ALT 186 H (7-56) units/L Alkaline Phosphatase 134 H (35-129) units/L Total Protein 6.7 (6.3-8.2) g/dL Albumin 3.1 L (3.9-5) g/dL Calcium panel 12/23/19 Range/Units 02:30 Calcium 8.5 (8.4-10.2) mg/dL Albumin 3.1 L (3.9-5) g/dL Pituitary panel 12/23/19 Range/Units 02:30 Sodium 147 H (137-145) mmol/L Potassium 4.2 (3.6-5.0) mmol/L Chloride 109.1 H (98-107) mmol/L Carbon Dioxide 22 D (22-30) mmol/L BUN 32 H (9-20) mg/dL Creatinine 2.5 H (0.8-1.5) mg/dL Glucose 133 H (75-100) mg/dL Calcium 8.5 (8.4-10.2) mg/dL Adrenal panel 12/23/19 Range/Units 02:30 Sodium 147 H (137-145) mmol/L Potassium 4.2 (3.6-5.0) mmol/L Chloride 109.1 H (98-107) mmol/L Carbon Dioxide 22 D (22-30) mmol/L BUN 32 H (9-20) mg/dL Creatinine 2.5 H (0.8-1.5) mg/dL Glucose 133 H (75-100) mg/dL Calcium 8.5 (8.4-10.2) mg/dL Total Bilirubin 0.30 (0.1-1.2) mg/dL AST 249 H (5-40) units/L ALT 186 H (7-56) units/L Alkaline Phosphatase 134 H (35-129) units/L Total Protein 6.7 (6.3-8.2) g/dL Albumin 3.1 L (3.9-5) g/dL
[2019-12-23] MEDS: hydrALAZINE 25 MG TAB PO SCH ×2 (13:35→21:38)
--- NOTE | 2019-12-23 13:41 | Progress Note ---
Assessment and Plan Assessment and plan: Massive acute pulmonary emboli with right heart strain s/p pulmonary artery angiogram and thrombolysis of right and left pulm artery by EKOS thrombolysis catheter Now had removal of Bilateral Pulmonary Artery EKOS Thrombolysis Catheters and placement of Rooks IVC Filter. On Heparin drip CT abdomen and pelvis poss pancreatis Surgery consulted Dr. Olson following SIRS Started empiric antibiotics, follow cultures Acute kidney injury Start IV fluid, monitor kidney function, Nephrology following Abnormal cardiac enzymes, consulted cardiology Cardiology following Hypertension Resume norvasc hold Lisinopril because of VENU Hold atenolol because bradycardia. History Interval history: Patient with Pulmonary embolism s/p thrombolysis with EKOS catheter Hospitalist Physical - Physical exam Narrative exam: GEN: Not in acute distress, lying in bed HEENT: Normocephalic, atraumatic, Neck: supple, No JVD Lungs: Clear, no crackles, no wheeze heart;S1 and S2 reg, no murmurs, rubs or gallop Abd:soft, non tender, non distended, normal bowel sounds, Ext: No edema, no clubbing, no cyanosis, Neuro: Awake,alert,oriented X3 , no focal sign - Constitutional Vitals: Temp Pulse Resp BP Pulse Ox 98.2 F 57 L 14 157/100 99 12/23/19 12:00 12/23/19 13:35 12/23/19 11:31 12/23/19 13:35 12/23/19 11:31 General appearance: Present: no acute distress HEART Score - HEART Score Troponin: Troponin T 0.570 ng/mL (0.00-0.029) H* D 12/21/19 23:59 Results - Labs CBC & Chem 7: 12/23/19 02:30 12/23/19 02:30 Labs: Laboratory Last Values WBC 9.7 K/mm3 (4.5-11.0) 12/23/19 02:30 RBC 3.73 M/mm3 (3.65-5.03) 12/23/19 02:30 Hgb 10.3 gm/dl (11.8-15.2) L 12/23/19 02:30 Hct 32.3 % (35.5-45.6) L 12/23/19 02:30 MCV 87 fl (84-94) 12/23/19 02:30 MCH 28 pg (28-32) 12/23/19 02:30 MCHC 32 % (32-34) 12/23/19 02:30 RDW 17.3 % (13.2-15.2) H 12/23/19 02:30 Plt Count 206 K/mm3 (140-440) 12/23/19 02:30 Lymph % (Auto) 21.3 % (13.4-35.0) 12/22/19 16:38 [place] % (Auto) 8.6 % (0.0-7.3) H 12/22/19 16:38 Eos % (Auto) 0.1 % (0.0-4.3) 12/22/19 16:38 Baso % (Auto) 0.2 % (0.0-1.8) 12/22/19 16:38 Lymph # 2.2 K/mm3 (1.2-5.4) 12/22/19 16:38 [place] # 0.9 K/mm3 (0.0-0.8) H 12/22/19 16:38 Eos # 0.0 K/mm3 (0.0-0.4) 12/22/19 16:38 Baso # 0.0 K/mm3 (0.0-0.1) 12/22/19 16:38 Seg Neutrophils % 69.8 % (40.0-70.0) 12/22/19 16:38 Seg Neutrophils # 7.3 K/mm3 (1.8-7.7) 12/22/19 16:38 PT 16.5 Sec. (12.2-14.9) H 12/22/19 21:17 INR 1.36 (0.87-1.13) H 12/22/19 21:17 APTT 37.9 Sec. (24.2-36.6) H 12/22/19 21:17 Fibrinogen 330 mg/dl (211-480) 12/22/19 16:38 D-Dimer > 98062 ng/mlDDU (0-234) H 12/21/19 20:29 Heparin Anti-Xa Level 0.32 U.I./ml (0.3-0.7) 12/23/19 02:30 Sodium 147 mmol/L (137-145) H 12/23/19 02:30 Potassium 4.2 mmol/L (3.6-5.0) 12/23/19 02:30 Chloride 109.1 mmol/L (98-107) H 12/23/19 02:30 Carbon Dioxide 22 mmol/L (22-30) D 12/23/19 02:30 Anion Gap 20 mmol/L 12/23/19 02:30 BUN 32 mg/dL (9-20) H 12/23/19 02:30 Creatinine 2.5 mg/dL (0.8-1.5) H 12/23/19 02:30 Estimated GFR 32 ml/min 12/23/19 02:30 BUN/Creatinine Ratio 13 % 12/23/19 02:30 Glucose 133 mg/dL (75-100) H 12/23/19 02:30 POC Glucose 232 (70-105) H 12/21/19 20:19 Hemoglobin A1c 4.9 % (4-6) 12/22/19 04:47 Lactic Acid 5.80 mmol/L (0.7-2.0) H* 12/22/19 04:47 Calcium 8.5 mg/dL (8.4-10.2) 12/23/19 02:30 Total Bilirubin 0.30 mg/dL (0.1-1.2) 12/23/19 02:30 Direct Bilirubin < 0.2 mg/dL (0-0.2) 12/23/19 02:30 Indirect Bilirubin 0.1 mg/dL 12/23/19 02:30 AST 249 units/L (5-40) H 12/23/19 02:30 ALT 186 units/L (7-56) H 12/23/19 02:30 Alkaline Phosphatase 134 units/L (35-129) H 12/23/19 02:30 Troponin T 0.570 ng/mL (0.00-0.029) H* D 12/21/19 23:59 Total Protein 6.7 g/dL (6.3-8.2) 12/23/19 02:30 Albumin 3.1 g/dL (3.9-5) L 12/23/19 02:30 Albumin/Globulin Ratio 0.9 % 12/23/19 02:30 Triglycerides 124 mg/dL (2-149) 12/21/19 20:29 Cholesterol 162 mg/dL (50-199) 12/21/19 20:29 LDL Cholesterol Direct 122 mg/dL (50-130) 12/21/19 20:29 HDL Cholesterol 27 mg/dL (40-59) L 12/21/19 20: Cholesterol/HDL Ratio 6.00 % 12/21/19 20: Lipase 16 units/L (13-60) 12/23/19 02:30 Urine Color [place] (Yellow) 12/22/19 17:55 Urine Turbidity Slightly-cloudy (Clear) 12/22/19 17:55 Urine pH 5.0 (5.0-7.0) 12/22/19 17:55 Ur Specific [place] 1.056 (1.003-1.030) H 12/22/19 17:55 Urine Protein 100 mg/dl mg/dL (Negative) 12/22/19 17:55 Urine Glucose (UA) 50 mg/dL (Negative) 12/22/19 17:55 Urine Ketones Neg mg/dL (Negative) 12/22/19 17:55 Urine Blood Sm (Negative) 12/22/19 17:55 Urine Nitrite Neg (Negative) 12/22/19 17:55 Urine Bilirubin Neg (Negative) 12/22/19 17:55 Urine Urobilinogen 2.0 mg/dL (<2.0) 12/22/19 17:55 Ur Leukocyte Esterase Neg (Negative) 12/22/19 17:55 Urine WBC (Auto) 8.0 /HPF (0.0-6.0) H 12/22/19 17:55 Urine RBC (Auto) 13.0 /HPF (0.0-6.0) 12/22/19 17:55 U Epithel Cells (Auto) 1.0 /HPF (0-13.0) 12/22/19 17:55 Urine Bacteria (Auto) 1+ /HPF (Negative) 12/22/19 17:55 Urine Mucus 1+ /HPF 12/22/19 17:55 Urine Opiates Screen Presumptive negative 12/22/19 17:55 Urine Methadone Screen Presumptive negative 12/22/19 17:55 Ur Barbiturates Screen Presumptive negative 12/22/19 17:55 Ur Phencyclidine Scrn Presumptive negative 12/22/19 17:55 Ur Amphetamines Screen Presumptive negative 12/22/19 17:55 U Benzodiazepines Scrn Presumptive positive 12/22/19 17:55 Urine Cocaine Screen Presumptive negative 12/22/19 17:55 U Marijuana (THC) Screen Presumptive negative 12/22/19 17:55 Drugs of Abuse Note Disclamer 12/22/19 17:55 Microbiology: Microbiology 12/21/19 20:39 Peripheral/Venous Blood Culture - Preliminary NO GROWTH AFTER 24 HOURS 12/21/19 20:36 Peripheral/Venous Blood Culture - Preliminary NO GROWTH AFTER 24 HOURS - Diagnostic Impressions Diagnostic Impressions: Echocardiogram 12/22/19 11:04 Transthoracic Echocardiogram Indication: Massive PE BP: 120/89 Conclusions *Global left ventricular wall motion and contractility are within normal limits. *The estimated ejection fraction is 55-60%. *Normal left ventricular diastolic filling is observed. *The right ventricle is mildly dilated. *The right ventricular global systolic function is moderately reduced. *The right atrium is mildly dilated. *There is mild aortic regurgitation. *There is mild mitral regurgitation. *There is evidence of mild pulmonary hypertension. *The pericardium appears normal. Findings Left Ventricle: The left ventricular chamber size is normal. There is no left ventricular hypertrophy. Global left ventricular wall motion and contractility are within normal limits. Global left ventricular systolic function is normal. The estimated ejection fraction is 55-60%. Normal left ventricular diastolic filling is observed. Left Atrium: The left atrium is moderately dilated. Right Ventricle: The right ventricle is mildly dilated. The right ventricular global systolic function is moderately reduced. Right Atrium: The right atrium is mildly dilated. Aortic Valve: The aortic valve is trileaflet. There is no evidence of aortic valve thickening. There is mild aortic regurgitation. There is no evidence of aortic stenosis. Mitral Valve: The mitral valve leaflets appear normal. There is mild mitral regurgitation. There is no evidence of mitral stenosis. Tricuspid Valve: The tricuspid valve leaflets are normal. There is mild tricuspid regurgitation. The right ventricular systolic pressure is calculated at 41 mmHg. There is evidence of mild pulmonary hypertension. There is no tricuspid stenosis. Pulmonic Valve: The pulmonic valve appears normal. There is mild pulmonic regurgitation. There is no pulmonic stenosis. Pericardium: The pericardium appears normal. Aorta: The aorta appears normal. Pulmonary Artery: The main pulmonary artery appears normal. Venous: The inferior vena cava is dilated. There is less than 50% respiratory change in the inferior vena cava dimension. Measurements Chambers 2D Name Value Normal Range IVSd (2D) 1.17 cm (0.6 - 1.1) LVPWd (2D) 1.18 cm (0.6 - 1.1) LVIDd (2D) 5.43 cm (3.7 - 5.6) LVIDs (2D) 3.85 cm (2 - 3.8) LV FS (2D) 29.11 % - EF Teichholz (2D) 55.36 % - Ao root diameter (2D) 3.7 cm (2 - 3.7) Volumes/Mass Name Value Normal Range LA ESV SP 4CH (A/L) 132.31 ml - LA ESV SP 2CH (A/L) 109.39 ml - LA ESV BP (A/L) 126.88 ml - LA ESV BP (A/L) index 55.65 ml/m2 - LA ESV SP 4CH (MOD) 124.42 ml - LA ESV SP 2CH (MOD) 100.28 ml - LA ESV BP (MOD) 115.23 ml - LA ESV BP (MOD) index 50.54 ml/m2 - LV EDV SP 4CH (MOD) 156.96 ml - LV ESV SP 4CH (MOD) 68.77 ml - EF SP 4CH (MOD) 56.18 % - LV EDV SP 2CH (MOD) 147.2 ml - LV ESV SP 2CH (MOD) 71.41 ml - EF SP 2CH (MOD) 51.49 % - LV EDV BP 152.04 ml - LV ESV BP 71.21 ml - BP EF (MOD) 53.16 % - Diastolic/Systolic Function Name Value Normal Range MV E-wave Vmax 0.47 m/sec - MV deceleration time 249.84 msec - MV A-wave Vmax 0.49 m/sec - MV E:A ratio 0.96 ratio - Aortic Valve Name Value Normal Range AV Vmax 1 m/sec - AV VTI 16.16 cm - AV peak gradient 4.01 mmHg - AV mean gradient 1.71 mmHg - LVOT diameter 2.63 cm - LVOT Vmax 0.66 m/sec - LVOT VTI 11.01 cm - LVOT peak gradient 1.77 mmHg - LVOT mean gradient 0.77 mmHg - SV LVOT 59.84 ml - NATHALIA (continuity Vmax) 3.61 cm2 - NATHALIA (continuity VTI) 3.7 cm2 - AR PHT 744.14 msec - AR peak gradient 97.45 mmHg - Ascending Ao 3.86 cm - Tricuspid Valve Name Value Normal Range TV E-wave Vmax 0.47 m/sec - TR Vmax 2.91 m/sec - TR peak gradient 33.85 mmHg - RAP 8 mmHg - RVSP 41 mmHg - Pulmonic Valve/Qp:Qs Name Value Normal Range IA end-diastolic Vmax 0.99 m/sec - RVOT Vmax 0.39 m/sec - RVOT VTI 9.53 cm - RVOT peak gradient 0.61 mmHg - PV acceleration time 76.12 msec - [place]/IV: Voiding Method Urinal IV Catheter Type [Right INT / Saline Lock Antecubital] IV Catheter Type [Left Hand] INT / Saline Lock Active Medications - Current Medications Current Medications: Generic Name Dose Route Start Last Admin Trade Name Freq PRN Reason Stop Dose Admin Acetaminophen 650 mg 12/21/19 23:12 Tylenol PO Q4H PRN Pain MILD(1-3)/Fever >100.5/VICENTE Acetaminophen/Hydrocodone Bitart 2 each 12/21/19 23:44 [place] 5/325 PO Q6H PRN Pain, Moderate (4-6) Hydralazine HCl 25 mg 12/23/19 14:00 12/23/19 13:35 Apresoline PO 25 mg Q8HR ANGEL Administration Sodium Bicarbonate 100 meq/ 1,100 mls @ 75 mls/hr 12/22/19 11:00 12/23/19 04:37 Dextrose IV 75 mls/hr DIRECT ANGEL Administration Piperacillin Sod/Tazobactam Sod 2.25 gm in 50 mls @ 100 mls/hr 12/22/19 18:00 12/23/19 11:24 Zosyn/Ns 2.25 Gm/50ml IV 100 mls/hr Q6HR ANGEL Administration Protocol Heparin Sodium/Sodium Chloride 25,000 unit in 500 mls @ 30 mls/hr 12/22/19 21:00 12/23/19 11:26 Heparin/ 0.45% Nacl-25,000 Unit/500 Ml IV 1,500 units/hr TITR ANGEL 30 mls/hr Administration Protocol 1,500 UNITS/HR Morphine Sulfate 4 mg 12/21/19 23:44 Morphine IV Q4H PRN Pain , Severe (7-10) Morphine Sulfate 2 mg 12/21/19 23:44 Morphine IV Q4H PRN Pain, Moderate (4-6) Ondansetron HCl 4 mg 12/21/19 23:44 12/22/19 01:22 Zofran IV 4 mg Q8H PRN Administration Nausea And Vomiting Sodium Chloride 10 ml 12/22/19 10:00 12/23/19 11:28 Sodium Chloride Flush Syringe 10 Ml IV 10 ml BID ANGEL Administration Sodium Chloride 10 ml 12/21/19 23:12 Sodium Chloride Flush Syringe 10 Ml IV PRN PRN LINE FLUSH
--- NOTE | 2019-12-23 16:08 | Progress Note ---
Assessment and Plan Acute Renal Failure secondary to Ischemic ATN vs Prerenalvs NSAID use: Acidosis: -Serum creatinine 2.5 today. yesterday was 2.3. UOP 450 ml recorded -Patient was taking Lisinopril, Indomethacin and Celebrex at home -CT of Abdomen/Pelvis- No acute findings for kidneys -CXR- lungs are clear -Acidosis-On Sodium Bicarbonate gtt, will discontinue since resolved -Start NS@ 75 ml/hr -Obtain urine lytes -Avoid nephrotoxic agents -Monitor I/O's -Continue to monitor renal function closely Pulmonary Embolism: -On Heprain drip -S/P thrombolytic catheter placement by vascular for Alteplase infusion Hypertension: -Monitor BP Gout: -No NSAID's, do not resume home Celebrex or Indomethacin due to renal failure -Can give Tramadol if needed -Patient to f/u with outpatient [employer] Subjective Date of service: 12/23/19 Principal diagnosis: ARF ON CKD Interval history: Patient seen sitting up in bed. Reviewed renal plan of care. Objective - Vital Signs Vital signs: Vital Signs - 12hr 12/23/19 12/23/19 12/23/19 04:15 04:30 04:45 Temperature Pulse Rate 59 L 58 L 58 L Pulse Rate [ None] Respiratory 18 16 16 Rate Respiratory Rate [Bilateral Foot] Blood Pressure 154/94 139/91 160/100 O2 Sat by Pulse 97 100 99 Oximetry 12/23/19 12/23/19 12/23/19 05:00 05:30 06:00 Temperature Pulse Rate 57 L 58 L 57 L Pulse Rate [ 56 L None] Respiratory 22 15 29 H Rate Respiratory Rate [Bilateral Foot] Blood Pressure 161/92 137/89 154/97 O2 Sat by Pulse 100 97 99 Oximetry 12/23/19 12/23/19 12/23/19 06:30 07:00 07:30 Temperature Pulse Rate 58 L 59 L 63 Pulse Rate [ None] Respiratory 16 18 15 Rate Respiratory Rate [Bilateral Foot] Blood Pressure 134/90 161/102 176/105 O2 Sat by Pulse 99 100 100 Oximetry 12/23/19 12/23/19 12/23/19 08:00 08:31 09:00 Temperature 97.8 F Pulse Rate 64 63 61 Pulse Rate [ None] Respiratory 19 12 17 Rate Respiratory Rate [Bilateral Foot] Blood Pressure 168/102 172/105 168/101 O2 Sat by Pulse 97 94 98 Oximetry 12/23/19 12/23/19 12/23/19 09:30 10:00 10:30 Temperature Pulse Rate 65 65 63 Pulse Rate [ None] Respiratory 17 17 18 Rate Respiratory 20 Rate [Bilateral Foot] Blood Pressure 169/102 150/88 154/91 O2 Sat by Pulse 98 96 99 Oximetry 12/23/19 12/23/19 12/23/19 11:00 11:31 12:00 Temperature 98.2 F Pulse Rate 60 58 L Pulse Rate [ None] Respiratory 16 14 Rate Respiratory Rate [Bilateral Foot] Blood Pressure 152/95 152/95 O2 Sat by Pulse 100 99 Oximetry 12/23/19 13:35 Temperature Pulse Rate 57 L Pulse Rate [ None] Respiratory Rate Respiratory Rate [Bilateral Foot] Blood Pressure 157/100 O2 Sat by Pulse Oximetry - General Appearance General appearance: well-developed, appears stated age, fatigue EENT: ATNC, PERRL, hearing intact, vision intact Neck: no JVD, supple Respiratory: Present: Decreased Breath Sounds Cardiology: S1S2 Gastrointestinal: normoactive bowel sounds Integumentary: warm and dry Neurologic: alert and oriented x3 Musculoskeletal: other (gout pain to knees and foot) Psychiatric: cooperative - Lab 12/23/19 02:30 12/23/19 02:30 Most recent lab results Calcium 8.5 mg/dL (8.4-10.2) 12/23/19 02:30 Medications & Allergies - Medications Allergies/Adverse Reactions: Allergies No Known Allergies Allergy (Unverified 03/27/15 12:05) Home Medications: Home Medications Medication Instructions Recorded Confirmed Last Taken Type Atenolol [Tenormin] 100 mg PO DAILY #30 tablet 03/27/15 12/22/19 Unknown Rx amLODIPine 10 mg PO DAILY #30 tablet 03/27/15 12/22/19 Unknown Rx lisinopriL [Zestril TAB] 40 mg PO QDAY #30 tablet 03/27/15 12/22/19 Unknown Rx Prednisone [predniSONE 5 mg (6-Day 5 mg PO .TAPER #1 tab.ds.pk 12/30/16 12/22/19 Unknown Rx Pack, 21 Tabs)] Celecoxib [celeBREX] 50 mg PO BID #30 capsule 05/19/17 12/22/19 Unknown Rx Cyclobenzaprine [Flexeril] 10 mg PO TID PRN #20 tablet 05/19/17 12/22/19 Unknown Rx Indomethacin 50 mg PO Q8H #15 capsule 05/19/17 12/22/19 Unknown Rx Active Medications: Generic Name Dose Route Start Last Admin Trade Name Sreeq PRN Reason Stop Dose Admin Acetaminophen 650 mg 12/21/19 23:12 Tylenol PO Q4H PRN Pain MILD(1-3)/Fever >100.5/VICENTE Acetaminophen/Hydrocodone Bitart 2 each 12/21/19 23:44 [place] 5/325 PO Q6H PRN Pain, Moderate (4-6) Hydralazine HCl 25 mg 12/23/19 14:00 12/23/19 13:35 Apresoline PO 25 mg Q8HR ANGEL Administration Sodium Bicarbonate 100 meq/ 1,100 mls @ 75 mls/hr 12/22/19 11:00 12/23/19 04:37 Dextrose IV 75 mls/hr DIRECT ANGEL Administration Piperacillin Sod/Tazobactam Sod 2.25 gm in 50 mls @ 100 mls/hr 12/22/19 18:00 12/23/19 11:24 Zosyn/Ns 2.25 Gm/50ml IV 100 mls/hr Q6HR ANGEL Administration Protocol Heparin Sodium/Sodium Chloride 25,000 unit in 500 mls @ 30 mls/hr 12/22/19 21:00 12/23/19 11:26 Heparin/ 0.45% Nacl-25,000 Unit/500 Ml IV 1,500 units/hr TITR ANGEL 30 mls/hr Administration Protocol 1,500 UNITS/HR Morphine Sulfate 4 mg 12/21/19 23:44 Morphine IV Q4H PRN Pain , Severe (7-10) Morphine Sulfate 2 mg 12/21/19 23:44 Morphine IV Q4H PRN Pain, Moderate (4-6) Ondansetron HCl 4 mg 12/21/19 23:44 12/22/19 01:22 Zofran IV 4 mg Q8H PRN Administration Nausea And Vomiting Sodium Chloride 10 ml 12/22/19 10:00 12/23/19 11:28 Sodium Chloride Flush Syringe 10 Ml IV 10 ml BID ANGEL Administration Sodium Chloride 10 ml 12/21/19 23:12 Sodium Chloride Flush Syringe 10 Ml IV PRN PRN LINE FLUSH
[2019-12-23] MEDS: SODIUM CHLORIDE 0.9% 1000 ML 1,000 ML IV SCH (17:26)
[2019-12-24] MEDS: PIPERACIL-TAZO 2.25 GM/50 ML 2.25 GM/50 ML BAG IV SCH ×2 (00:33→06:17)
[2019-12-24] MEDS: amLODIPine 10 MG TAB PO SCH ×2 (00:37→10:33)
[2019-12-24 03:08] LABS: Hematocrit 32.2 % (35.5-45.6); Hemoglobin 10.4 gm/dl (11.8-15.2); Mean Corpuscular HGB Conc 32 % (32-34); Mean Corpuscular Volume 87 fl (84-94); Platelet Count 206 K/mm3 (140-440); Red Blood Count 3.72 M/mm3 (3.65-5.03); Red Cell Distribution Width 17.1 % (13.2-15.2)
[2019-12-24 03:22] LABS: Calcium 8.3 mg/dL (8.4-10.2)
[2019-12-24] MEDS: HEPARIN/ 0.45% NACL DRIP 25,000 UNIT/500 ML BAG IV SCH ×3 (04:42→22:00)
[2019-12-24] MEDS: hydrALAZINE 25 MG TAB PO SCH ×3 (06:18→22:03)
--- NOTE | 2019-12-24 07:44 | Progress Note ---
Assessment and Plan Acute Kidney Injury secondary to prerenal/Ischemic ATN with possibly worsened in setting of NSAID use: Acidosis: -Renal function reviewed, SCr level was 1.8 today, yesterday's SCr level was 2.5 -Pt was taking Lisinopril, Indomethacin and Celebrex at home -CT of Abdomen/Pelvis showed no acute findings for kidneys -On 0.9% NS infusion at 75 ml/hr -Replete potassium -Urine studies pending -Monitor I/O's -Intake= 1600 ml Output= 850 ml (Net= 750 ml) -Renal plan d/w Dr Fink Pulmonary Embolism: -On Heprain drip -S/p thrombolytic catheter placement by vascular for Alteplase infusion Hypertension: -Monitor BP closely Gout: -No NSAIDs, do not resume home Celebrex or Indomethacin due to renal failure -Ok with Tramadol if needed from nephrology standpoint -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 Subjective Date of service: 12/24/19 Principal diagnosis: ARF ON CKD Interval history: Pt seen in bed, denies shortness of breath, eating breakfast, denies nausea or vomiting, no acute distress Objective - Vital Signs Vital signs: Vital Signs - 12hr 12/23/19 12/23/19 12/23/19 21:38 22:00 23:47 Temperature 97.9 F Pulse Rate 63 65 Respiratory 20 Rate Blood Pressure 153/91 137/87 O2 Sat by Pulse 98 98 Oximetry 12/24/19 12/24/19 12/24/19 00:37 04:22 06:18 Temperature 98.2 F Pulse Rate 65 60 59 L Respiratory 20 Rate Blood Pressure 137/87 133/83 133/83 O2 Sat by Pulse 98 Oximetry - General Appearance General appearance: well-developed EENT: ATNC Neck: no JVD Respiratory: Present: Clear to Ascultation Cardiology: regular, S1S2 Gastrointestinal: normoactive bowel sounds, no tenderness Integumentary: warm and dry Neurologic: alert and oriented x3 Musculoskeletal: other (no edema to BLE) Psychiatric: mood/affect appropriate, cooperative - Lab 12/24/19 02:46 12/24/19 02:46 Most recent lab results Calcium 8.3 mg/dL (8.4-10.2) L 12/24/19 02:46 Medications & Allergies - Medications Allergies/Adverse Reactions: Allergies No Known Allergies Allergy (Unverified 03/27/15 12:05) Home Medications: Home Medications Medication Instructions Recorded Confirmed Last Taken Type Atenolol [Tenormin] 100 mg PO DAILY #30 tablet 03/27/15 12/22/19 Unknown Rx amLODIPine 10 mg PO DAILY #30 tablet 03/27/15 12/22/19 Unknown Rx lisinopriL [Zestril TAB] 40 mg PO QDAY #30 tablet 03/27/15 12/22/19 Unknown Rx Prednisone [predniSONE 5 mg (6-Day 5 mg PO .TAPER #1 tab.ds.pk 12/30/16 12/22/19 Unknown Rx Pack, 21 Tabs)] Celecoxib [celeBREX] 50 mg PO BID #30 capsule 05/19/17 12/22/19 Unknown Rx Cyclobenzaprine [Flexeril] 10 mg PO TID PRN #20 tablet 05/19/17 12/22/19 Unknown Rx Indomethacin 50 mg PO Q8H #15 capsule 05/19/17 12/22/19 Unknown Rx Active Medications: Generic Name Dose Route Start Last Admin Trade Name Freq PRN Reason Stop Dose Admin Acetaminophen 650 mg 12/21/19 23:12 Tylenol PO Q4H PRN Pain MILD(1-3)/Fever >100.5/VICENTE Acetaminophen/Hydrocodone Bitart 2 each 12/21/19 23:44 [place] 5/325 PO Q6H PRN Pain, Moderate (4-6) Amlodipine Besylate 10 mg 12/23/19 23:00 12/24/19 00:37 Amlodipine PO 10 mg DAILY ANGEL Administration Hydralazine HCl 25 mg 12/23/19 14:00 12/24/19 06:18 Apresoline PO 25 mg Q8HR ANGEL Administration Piperacillin Sod/Tazobactam Sod 2.25 gm in 50 mls @ 100 mls/hr 12/22/19 18:00 12/24/19 06:17 Zosyn/Ns 2.25 Gm/50ml IV 100 mls/hr Q6HR ANGEL Administration Protocol Heparin Sodium/Sodium Chloride 25,000 unit in 500 mls @ 30 mls/hr 12/22/19 21:00 12/24/19 04:42 Heparin/ 0.45% Nacl-25,000 Unit/500 Ml IV 1,600 units/hr TITR ANGEL 32 mls/hr Administration Protocol 1,500 UNITS/HR Sodium Chloride 1,000 mls @ 75 mls/hr 12/23/19 17:00 12/23/19 17:26 Nacl 0.9% 1000 Ml IV 75 mls/hr DIRECT ANGEL Administration Morphine Sulfate 4 mg 12/21/19 23:44 Morphine IV Q4H PRN Pain , Severe (7-10) Morphine Sulfate 2 mg 12/21/19 23:44 Morphine IV Q4H PRN Pain, Moderate (4-6) Ondansetron HCl 4 mg 12/21/19 23:44 12/22/19 01:22 Zofran IV 4 mg Q8H PRN Administration Nausea And Vomiting Sodium Chloride 10 ml 12/22/19 10:00 12/23/19 21:39 Sodium Chloride Flush Syringe 10 Ml IV Not Given BID ANGEL Sodium Chloride 10 ml 12/21/19 23:12 Sodium Chloride Flush Syringe 10 Ml IV PRN PRN LINE FLUSH
--- NOTE | 2019-12-24 09:38 | Progress Note ---
Assessment and Plan Assessment and plan: Massive acute pulmonary emboli with right heart strain s/p pulmonary artery angiogram and thrombolysis of right and left pulm artery by EKOS thrombolysis catheter Now had removal of Bilateral Pulmonary Artery EKOS Thrombolysis Catheters and placement of Crisp IVC Filter. On Heparin drip feels better, currently no chest pain or SOB CT abdomen and pelvis poss pancreatis Surgery consulted Dr. Olson following SIRS Started empiric antibiotics, follow cultures Acute kidney injury due to ATN Cont IV fluid, monitor kidney function, Nephrology following Discussed with Nephrology Abnormal cardiac enzymes, consulted cardiology Cardiology following Hypokalemia replace po Hypernatremia now resolved Hypertension Resumed norvasc hold Lisinopril because of VENU Hold atenolol because bradycardia. 12/24/19 Patient with massive acute pulmonary emboli with right heart strain s/p pulmonary artery angiogram and thrombolysis of right and left pulm artery by EKOS thrombolysis catheter, removal of Bilateral Pulmonary Artery EKOS Thrombolysis Catheters and placement of Luann IVC Filter. VENU improving Cr 1.8 today History Interval history: Patient with Pulmonary embolism s/p thrombolysis with EKOS catheter Feels better No chest pain or shortness of breath currently Hospitalist Physical - Physical exam Narrative exam: GEN: Not in acute distress, lying in bed HEENT: Normocephalic, atraumatic, Neck: supple, No JVD Lungs: Clear, no crackles, no wheeze heart;S1 and S2 reg, no murmurs, rubs or gallop Abd:soft, non tender, non distended, normal bowel sounds, Ext: No edema, no clubbing, no cyanosis, Neuro: Awake,alert,oriented X3 , no focal sign - Constitutional Vitals: Temp Pulse Resp BP Pulse Ox 98.3 F 55 L 18 132/86 97 12/24/19 07:31 12/24/19 07:31 12/24/19 07:31 12/24/19 07:31 12/24/19 08:27 General appearance: Present: no acute distress HEART Score - HEART Score Troponin: Troponin T 0.570 ng/mL (0.00-0.029) H* D 12/21/19 23:59 Results - Labs CBC & Chem 7: 12/24/19 02:46 12/24/19 02:46 Labs: Laboratory Last Values WBC 8.8 K/mm3 (4.5-11.0) 12/24/19 02:46 RBC 3.72 M/mm3 (3.65-5.03) 12/24/19 02:46 Hgb 10.4 gm/dl (11.8-15.2) L 12/24/19 02:46 Hct 32.2 % (35.5-45.6) L 12/24/19 02:46 MCV 87 fl (84-94) 12/24/19 02:46 MCH 28 pg (28-32) 12/24/19 02:46 MCHC 32 % (32-34) 12/24/19 02:46 RDW 17.1 % (13.2-15.2) H 12/24/19 02:46 Plt Count 206 K/mm3 (140-440) 12/24/19 02:46 Lymph % (Auto) 21.3 % (13.4-35.0) 12/22/19 16:38 [place] % (Auto) 8.6 % (0.0-7.3) H 12/22/19 16:38 Eos % (Auto) 0.1 % (0.0-4.3) 12/22/19 16:38 Baso % (Auto) 0.2 % (0.0-1.8) 12/22/19 16:38 Lymph # 2.2 K/mm3 (1.2-5.4) 12/22/19 16:38 [place] # 0.9 K/mm3 (0.0-0.8) H 12/22/19 16:38 Eos # 0.0 K/mm3 (0.0-0.4) 12/22/19 16:38 Baso # 0.0 K/mm3 (0.0-0.1) 12/22/19 16:38 Seg Neutrophils % 69.8 % (40.0-70.0) 12/22/19 16:38 Seg Neutrophils # 7.3 K/mm3 (1.8-7.7) 12/22/19 16:38 PT 16.5 Sec. (12.2-14.9) H 12/22/19 21:17 INR 1.36 (0.87-1.13) H 12/22/19 21:17 APTT 37.9 Sec. (24.2-36.6) H 12/22/19 21:17 Fibrinogen 330 mg/dl (211-480) 12/22/19 16:38 D-Dimer > 97996 ng/mlDDU (0-234) H 12/21/19 20:29 Heparin Anti-Xa Level 0.22 U.I./ml (0.3-0.7) L 12/24/19 02:46 Sodium 141 mmol/L (137-145) 12/24/19 02:46 Potassium 3.4 mmol/L (3.6-5.0) L 12/24/19 02:46 Chloride 106.4 mmol/L (98-107) 12/24/19 02:46 Carbon Dioxide 21 mmol/L (22-30) L 12/24/19 02:46 Anion Gap 17 mmol/L 12/24/19 02:46 BUN 25 mg/dL (9-20) H 12/24/19 02:46 Creatinine 1.8 mg/dL (0.8-1.5) H 12/24/19 02:46 Estimated GFR 46 ml/min 12/24/19 02:46 BUN/Creatinine Ratio 14 % 12/24/19 02:46 Glucose 94 mg/dL (75-100) 12/24/19 02:46 POC Glucose 232 (70-105) H 12/21/19 20:19 Hemoglobin A1c 4.9 % (4-6) 12/22/19 04:47 Lactic Acid 5.80 mmol/L (0.7-2.0) H* 12/22/19 04:47 Calcium 8.3 mg/dL (8.4-10.2) L 12/24/19 02:46 Total Bilirubin 0.30 mg/dL (0.1-1.2) 12/23/19 02:30 Direct Bilirubin < 0.2 mg/dL (0-0.2) 12/23/19 02:30 Indirect Bilirubin 0.1 mg/dL 12/23/19 02:30 AST 249 units/L (5-40) H 12/23/19 02:30 ALT 186 units/L (7-56) H 12/23/19 02:30 Alkaline Phosphatase 134 units/L (35-129) H 12/23/19 02:30 Troponin T 0.570 ng/mL (0.00-0.029) H* D 12/21/19 23:59 Total Protein 6.7 g/dL (6.3-8.2) 12/23/19 02:30 Albumin 3.1 g/dL (3.9-5) L 12/23/19 02:30 Albumin/Globulin Ratio 0.9 % 12/23/19 02:30 Triglycerides 124 mg/dL (2-149) 12/21/19 20:29 Cholesterol 162 mg/dL (50-199) 12/21/19 20:29 LDL Cholesterol Direct 122 mg/dL (50-130) 12/21/19 20:29 HDL Cholesterol 27 mg/dL (40-59) L 12/21/19 20:29 Cholesterol/HDL Ratio 6.00 % 12/21/19 20:29 Lipase 16 units/L (13-60) 12/23/19 02:30 Urine Color [place] (Yellow) 12/22/19 17:55 Urine Turbidity Slightly-cloudy (Clear) 12/22/19 17:55 Urine pH 5.0 (5.0-7.0) 12/22/19 17:55 Ur Specific [place] 1.056 (1.003-1.030) H 12/22/19 17:55 Urine Protein 100 mg/dl mg/dL (Negative) 12/22/19 17:55 Urine Glucose (UA) 50 mg/dL (Negative) 12/22/19 17:55 Urine Ketones Neg mg/dL (Negative) 12/22/19 17:55 Urine Blood Sm (Negative) 12/22/19 17:55 Urine Nitrite Neg (Negative) 12/22/19 17:55 Urine Bilirubin Neg (Negative) 12/22/19 17:55 Urine Urobilinogen 2.0 mg/dL (<2.0) 12/22/19 17:55 Ur Leukocyte Esterase Neg (Negative) 12/22/19 17:55 Urine WBC (Auto) 8.0 /HPF (0.0-6.0) H 12/22/19 17:55 Urine RBC (Auto) 13.0 /HPF (0.0-6.0) 12/22/19 17:55 U Epithel Cells (Auto) 1.0 /HPF (0-13.0) 12/22/19 17:55 Urine Bacteria (Auto) 1+ /HPF (Negative) 12/22/19 17:55 Urine Mucus 1+ /HPF 05/23/20 17:55 Urine Opiates Screen Presumptive negative 12/22/19 17:55 Urine Methadone Screen Presumptive negative 12/22/19 17:55 Ur Barbiturates Screen Presumptive negative 12/22/19 17:55 Ur Phencyclidine Scrn Presumptive negative 12/22/19 17:55 Ur Amphetamines Screen Presumptive negative 12/22/19 17:55 U Benzodiazepines Scrn Presumptive positive 12/22/19 17:55 Urine Cocaine Screen Presumptive negative 12/22/19 17:55 U Marijuana (THC) Screen Presumptive negative 12/22/19 17:55 Drugs of Abuse Note Disclamer 12/22/19 17:55 Microbiology: Microbiology 12/22/19 17:55 Urine,Clean Catch Urine Culture - Preliminary NO GROWTH AFTER 24 HOURS 12/21/19 20:39 Peripheral/Venous Blood Culture - Preliminary NO GROWTH AFTER 48 HOURS 12/21/19 20:36 Peripheral/Venous Blood Culture - Preliminary NO GROWTH AFTER 48 HOURS - Diagnostic Impressions Diagnostic Impressions: Echocardiogram 12/22/19 11:04 Transthoracic Echocardiogram Indication: Massive PE BP: 120/89 Conclusions *Global left ventricular wall motion and contractility are within normal limits. *The estimated ejection fraction is 55-60%. *Normal left ventricular diastolic filling is observed. *The right ventricle is mildly dilated. *The right ventricular global systolic function is moderately reduced. *The right atrium is mildly dilated. *There is mild aortic regurgitation. *There is mild mitral regurgitation. *There is evidence of mild pulmonary hypertension. *The pericardium appears normal. Findings Left Ventricle: The left ventricular chamber size is normal. There is no left ventricular hypertrophy. Global left ventricular wall motion and contractility are within normal limits. Global left ventricular systolic function is normal. The estimated ejection fraction is 55-60%. Normal left ventricular diastolic filling is observed. Left Atrium: The left atrium is moderately dilated. Right Ventricle: The right ventricle is mildly dilated. The right ventricular global systolic function is moderately reduced. Right Atrium: The right atrium is mildly dilated. Aortic Valve: The aortic valve is trileaflet. There is no evidence of aortic valve thickening. There is mild aortic regurgitation. There is no evidence of aortic stenosis. Mitral Valve: The mitral valve leaflets appear normal. There is mild mitral regurgitation. There is no evidence of mitral stenosis. Tricuspid Valve: The tricuspid valve leaflets are normal. There is mild tricuspid regurgitation. The right ventricular systolic pressure is calculated at 41 mmHg. There is evidence of mild pulmonary hypertension. There is no tricuspid stenosis. Pulmonic Valve: The pulmonic valve appears normal. There is mild pulmonic regurgitation. There is no pulmonic stenosis. Pericardium: The pericardium appears normal. Aorta: The aorta appears normal. Pulmonary Artery: The main pulmonary artery appears normal. Venous: The inferior vena cava is dilated. There is less than 50% respiratory change in the inferior vena cava dimension. Measurements Chambers 2D Name Value Normal Range IVSd (2D) 1.17 cm (0.6 - 1.1) LVPWd (2D) 1.18 cm (0.6 - 1.1) LVIDd (2D) 5.43 cm (3.7 - 5.6) LVIDs (2D) 3.85 cm (2 - 3.8) LV FS (2D) 29.11 % - EF Teichholz (2D) 55.36 % - Ao root diameter (2D) 3.7 cm (2 - 3.7) Volumes/Mass Name Value Normal Range LA ESV SP 4CH (A/L) 132.31 ml - LA ESV SP 2CH (A/L) 109.39 ml - LA ESV BP (A/L) 126.88 ml - LA ESV BP (A/L) index 55.65 ml/m2 - LA ESV SP 4CH (MOD) 124.42 ml - LA ESV SP 2CH (MOD) 100.28 ml - LA ESV BP (MOD) 115.23 ml - LA ESV BP (MOD) index 50.54 ml/m2 - LV EDV SP 4CH (MOD) 156.96 ml - LV ESV SP 4CH (MOD) 68.77 ml - EF SP 4CH (MOD) 56.18 % - LV EDV SP 2CH (MOD) 147.2 ml - LV ESV SP 2CH (MOD) 71.41 ml - EF SP 2CH (MOD) 51.49 % - LV EDV BP 152.04 ml - LV ESV BP 71.21 ml - BP EF (MOD) 53.16 % - Diastolic/Systolic Function Name Value Normal Range MV E-wave Vmax 0.47 m/sec - MV deceleration time 249.84 msec - MV A-wave Vmax 0.49 m/sec - MV E:A ratio 0.96 ratio - Aortic Valve Name Value Normal Range AV Vmax 1 m/sec - AV VTI 16.16 cm - AV peak gradient 4.01 mmHg - AV mean gradient 1.71 mmHg - LVOT diameter 2.63 cm - LVOT Vmax 0.66 m/sec - LVOT VTI 11.01 cm - LVOT peak gradient 1.77 mmHg - LVOT mean gradient 0.77 mmHg - SV LVOT 59.84 ml - NATHALIA (continuity Vmax) 3.61 cm2 - NATHALIA (continuity VTI) 3.7 cm2 - AR PHT 744.14 msec - AR peak gradient 97.45 mmHg - Ascending Ao 3.86 cm - Tricuspid Valve Name Value Normal Range TV E-wave Vmax 0.47 m/sec - TR Vmax 2.91 m/sec - TR peak gradient 33.85 mmHg - RAP 8 mmHg - RVSP 41 mmHg - Pulmonic Valve/Qp:Qs Name Value Normal Range DC end-diastolic Vmax 0.99 m/sec - RVOT Vmax 0.39 m/sec - RVOT VTI 9.53 cm - RVOT peak gradient 0.61 mmHg - PV acceleration time 76.12 msec - Summers/IV: Voiding Method Urinal IV Catheter Type [Right INT / Saline Lock Antecubital] IV Catheter Type [Left Hand] INT / Saline Lock Active Medications - Current Medications Current Medications: Generic Name Dose Route Start Last Admin Trade Name Freq PRN Reason Stop Dose Admin Acetaminophen 650 mg 12/21/19 23:12 Tylenol PO Q4H PRN Pain MILD(1-3)/Fever >100.5/VICENTE Acetaminophen/Hydrocodone Bitart 2 each 12/21/19 23:44 [place] 5/325 PO Q6H PRN Pain, Moderate (4-6) Amlodipine Besylate 10 mg 12/23/19 23:00 12/24/19 00:37 Amlodipine PO 10 mg DAILY ANGEL Administration Hydralazine HCl 25 mg 12/23/19 14:00 12/24/19 06:18 Apresoline PO 25 mg Q8HR ANGEL Administration Heparin Sodium/Sodium Chloride 25,000 unit in 500 mls @ 30 mls/hr 12/22/19 21:00 12/24/19 04:42 Heparin/ 0.45% Nacl-25,000 Unit/500 Ml IV 1,600 units/hr TITR ANGEL 32 mls/hr Administration Protocol 1,500 UNITS/HR Sodium Chloride 1,000 mls @ 75 mls/hr 12/23/19 17:00 12/23/19 17:26 Nacl 0.9% 1000 Ml IV 75 mls/hr DIRECT ANGEL Administration Piperacillin Sod/Tazobactam Sod 4.5 gm in 100 mls @ 200 mls/hr 12/24/19 14:00 Zosyn/Ns 4.5gm/100ml IV 12/26/19 13:59 Q8HR ANGEL Protocol Morphine Sulfate 4 mg 12/21/19 23:44 Morphine IV Q4H PRN Pain , Severe (7-10) Morphine Sulfate 2 mg 12/21/19 23:44 Morphine IV Q4H PRN Pain, Moderate (4-6) Ondansetron HCl 4 mg 12/21/19 23:44 12/22/19 01:22 Zofran IV 4 mg Q8H PRN Administration Nausea And Vomiting Potassium Chloride 10 meq 12/24/19 10:00 K-Dur PO 12/24/19 10:01 ONCE ONE Sodium Chloride 10 ml 12/22/19 10:00 12/23/19 21:39 Sodium Chloride Flush Syringe 10 Ml IV Not Given BID ANGEL Sodium Chloride 10 ml 12/21/19 23:12 Sodium Chloride Flush Syringe 10 Ml IV PRN PRN LINE FLUSH
[2019-12-24] MEDS ORDERED: POTASSIUM CHLORIDE ER 10 MEQ TAB PO ONE (10:00)
--- NOTE | 2019-12-24 11:38 | Progress Note ---
Assessment and Plan clinically improving on iv heparin - start noac per primary tte reviewed w/ pt abnormal abd ct/surg c/s reviewed cont IVF VENU - 2.5 --> 1.8 bp control improved hold off on shaista (VENU) or AVB (SB) ~30 min spent - Patient Problems (1) Abnormal CT of the abdomen Current Visit: Yes Status: Acute (2) Acute renal failure Current Visit: Yes Status: Acute Qualifiers: Acute renal failure type: unspecified Qualified Code(s): N17.9 - Acute kidney failure, unspecified (3) Elevated troponin Current Visit: Yes Status: Acute (4) Lactic acid acidosis Current Visit: Yes Status: Acute (5) Pulmonary emboli Current Visit: Yes Status: Acute Qualifiers: Pulmonary embolism type: unspecified Chronicity: acute Acute cor pulmonale presence: with acute cor pulmonale Qualified Code(s): I26.09 - Other pulmonary embolism with acute cor pulmonale (6) SOB (shortness of breath) Current Visit: Yes Status: Acute (7) Tachycardia Current Visit: Yes Status: Acute (8) Thickening of wall of gallbladder Current Visit: Yes Status: Acute Subjective Date of service: 12/24/19 Principal diagnosis: ARF ON CKD Interval history: feels much better today Objective Vital Signs Temp Pulse Resp BP Pulse Ox 12/24/19 10:33 60 12/24/19 08:27 97 12/24/19 07:31 98.3 F 55 L 18 132/86 98 12/24/19 06:18 59 L 133/83 12/24/19 04:22 98.2 F 60 20 133/83 98 12/24/19 00:37 65 137/87 12/23/19 23:47 97.9 F 65 20 137/87 98 12/23/19 22:00 98 12/23/19 21:38 63 153/91 12/23/19 19:27 97.5 F L 20 153/91 12/23/19 19:21 68 12/23/19 17:00 72 12/23/19 15:44 98.1 F 72 18 147/93 96 12/23/19 13:35 57 L 157/100 12/23/19 13:34 57 L 157/100 96 12/23/19 12:01 60 19 152/95 99 12/23/19 12:00 98.2 F - Labs and Meds CBC 12/24/19 Range/Units 02:46 WBC 8.8 (4.5-11.0) K/mm3 RBC 3.72 (3.65-5.03) M/mm3 Hgb 10.4 L (11.8-15.2) gm/dl Hct 32.2 L (35.5-45.6) % Plt Count 206 (140-440) K/mm3 Comprehensive Metabolic Panel 12/24/19 Range/Units 02:46 Sodium 141 (137-145) mmol/L Potassium 3.4 L (3.6-5.0) mmol/L Chloride 106.4 (98-107) mmol/L Carbon Dioxide 21 L (22-30) mmol/L BUN 25 H (9-20) mg/dL Creatinine 1.8 H (0.8-1.5) mg/dL Glucose 94 (75-100) mg/dL Calcium 8.3 L (8.4-10.2) mg/dL - Imaging and Cardiology EKG: image reviewed
[2019-12-24] MEDS: PIPERACIL/TAZOBACTA 4.5/NS 100 4.5 GM/100 ML VIAL IV SCH ×2 (14:14→22:00)
--- NOTE | 2019-12-24 21:13 | Progress Note ---
Assessment and Plan Imp: 1. Acute bilateral PE w/ RV strain and mild pulm HTN 2. VENU 3. Normocytic anemia 4. Lactic acidosis 2/2 #1 5. Probable DVT 6. Gout Rec: 1. Cont. Heparin drip; OAC will depend on insurance coverage; needs minimum of 6 months since this is largely idiopathic 2. Continues to c/o leg pain; check dopplers 3. ABX per primary 4. Consider Covid-19 testing since can cause hypercoagulability Plan of care reviewed with patient, he understands/agrees Subjective Date of service: 12/24/19 Principal diagnosis: ARF ON CKD Interval history: No events. SOB and chest pain better. On Nasal cannula. Continues to c/o leg pain due to "gout". Active Medications Acetaminophen (Tylenol) 650 mg PO Q4H PRN PRN Reason: Pain MILD(1-3)/Fever >100.5/VICENTE Acetaminophen/Hydrocodone Bitart ([place] 5/325) 2 each PO Q6H PRN PRN Reason: Pain, Moderate (4-6) Amlodipine Besylate (Amlodipine) 10 mg PO DAILY ANGEL Last Admin: 12/24/19 10:33 Dose: 10 mg Documented by: Hydralazine HCl (Apresoline) 25 mg PO Q8HR ANGEL Last Admin: 12/24/19 14:13 Dose: 25 mg Documented by: Heparin Sodium/Sodium Chloride (Heparin/ 0.45% Nacl-25,000 Unit/500 Ml) 25,000 unit in 500 mls @ 30 mls/hr IV TITR ANGEL; Protocol Last Admin: 12/24/19 14:39 Dose: 1,600 units/hr, 32 mls/hr Documented by: Sodium Chloride (Nacl 0.9% 1000 Ml) 1,000 mls @ 75 mls/hr IV DIRECT ANGEL Last Admin: 12/23/19 17:26 Dose: 75 mls/hr Documented by: Piperacillin Sod/Tazobactam Sod (Zosyn/Ns 4.5gm/100ml) 4.5 gm in 100 mls @ 200 mls/hr IV Q8HR ANGEL; Protocol Stop: 12/26/19 13:59 Last Admin: 12/24/19 14:14 Dose: 200 mls/hr Documented by: Morphine Sulfate (Morphine) 4 mg IV Q4H PRN PRN Reason: Pain , Severe (7-10) Morphine Sulfate (Morphine) 2 mg IV Q4H PRN PRN Reason: Pain, Moderate (4-6) Ondansetron HCl (Zofran) 4 mg IV Q8H PRN PRN Reason: Nausea And Vomiting Last Admin: 12/22/19 01:22 Dose: 4 mg Documented by: Sodium Chloride (Sodium Chloride Flush Syringe 10 Ml) 10 ml IV BID ANGEL Last Admin: 12/24/19 10:34 Dose: 10 ml Documented by: Sodium Chloride (Sodium Chloride Flush Syringe 10 Ml) 10 ml IV PRN PRN PRN Reason: LINE FLUSH Objective Vital Signs - 12hr 12/24/19 12/24/19 12/24/19 10:00 10:33 11:31 Temperature Pulse Rate 61 60 62 Respiratory Rate Respiratory 18 Rate [Bilateral Foot] Blood Pressure Blood Pressure [Left] O2 Sat by Pulse 100 Oximetry 12/24/19 12/24/19 12/24/19 12:00 14:13 14:45 Temperature 98.2 F Pulse Rate 58 L 61 Respiratory 20 Rate Respiratory Rate [Bilateral Foot] Blood Pressure 135/84 Blood Pressure 144/87 [Left] O2 Sat by Pulse 100 Oximetry 12/24/19 12/24/19 12/24/19 15:07 15:52 19:08 Temperature 98.4 F 99.0 F Pulse Rate 102 H 65 70 Respiratory 20 18 Rate Respiratory Rate [Bilateral Foot] Blood Pressure 109/69 135/81 139/95 Blood Pressure [Left] O2 Sat by Pulse 93 96 97 Oximetry 12/24/19 21:00 Temperature Pulse Rate Respiratory Rate Respiratory Rate [Bilateral Foot] Blood Pressure Blood Pressure [Left] O2 Sat by Pulse 97 Oximetry Constitutional: no acute distress, alert Eyes: non-icteric ENT: oropharynx moist Neck: supple Effort: normal Ascultation: Bilateral: clear Cardiovascular: regular rate and rhythm (no mrg) Gastrointestinal: normoactive bowel sounds, soft, non-tender, non-distended Integumentary: normal Extremities: no cyanosis, pink and warm, other (2+ bilateral LE edema, R > L) Neurologic: normal mental status, non-focal exam, pupils equal and round, CN II- XII normal Psychiatric: mood appropriate, affect normal CBC and BMP: 12/24/19 02:46 12/24/19 02:46 ABG, PT/INR, D-dimer: PT/INR, D-dimer PT 16.5 Sec. (12.2-14.9) H 12/22/19 21:17 INR 1.36 (0.87-1.13) H 12/22/19 21:17 D-Dimer > 34188 ng/mlDDU (0-234) H 12/21/19 20:29 Abnormal lab findings: Abnormal Labs 12/21/19 12/21/19 12/21/19 00:58 00:58 20:19 WBC 14.9 H Hgb 11.2 L Hct 34.7 L MCHC RDW 16.8 H Lymph % (Auto) 8.2 L Hawkins % (Auto) Hawkins # Seg Neutrophils % 87.2 H Seg Neutrophils # 13.0 H PT INR APTT D-Dimer Heparin Anti-Xa Level Sodium Potassium Chloride Carbon Dioxide 16 L BUN 22 H Creatinine 2.3 H Glucose 203 H POC Glucose 232 H Lactic Acid Calcium AST ALT Alkaline Phosphatase Troponin T Albumin HDL Cholesterol Ur Specific [place] Urine WBC (Auto) 12/21/19 12/21/19 12/21/19 20:29 20:29 20:29 WBC 12.1 H Hgb 11.5 L Hct MCHC 31 L RDW 16.9 H Lymph % (Auto) Hawkins % (Auto) Hawkins # Seg Neutrophils % 81.1 H Seg Neutrophils # 9.8 H PT INR APTT D-Dimer > 58003 H Heparin Anti-Xa Level Sodium Potassium 3.3 L Chloride Carbon Dioxide 16 L BUN Creatinine 2.1 H Glucose 292 H POC Glucose Lactic Acid Calcium AST ALT Alkaline Phosphatase 178 H Troponin T 0.241 H* Albumin 3.6 L HDL Cholesterol 27 L Ur Specific [place] Urine WBC (Auto) 12/21/19 12/21/19 12/21/19 20:29 20:36 23:59 WBC Hgb Hct MCHC RDW Lymph % (Auto) Hawkins % (Auto) Hawkins # Seg Neutrophils % Seg Neutrophils # PT 16.5 H INR 1.36 H APTT D-Dimer Heparin Anti-Xa Level Sodium Potassium Chloride Carbon Dioxide BUN Creatinine Glucose POC Glucose Lactic Acid 7.80 H* Calcium AST ALT Alkaline Phosphatase Troponin T 0.570 H* D Albumin HDL Cholesterol Ur Specific [place] Urine WBC (Auto) 12/21/19 12/22/19 12/22/19 23:59 04:47 04:47 WBC Hgb Hct MCHC RDW Lymph % (Auto) Hawkins % (Auto) Hawkins # Seg Neutrophils % Seg Neutrophils # PT 18.5 H INR 1.58 H APTT 103.1 H* D-Dimer Heparin Anti-Xa Level 1.39 H Sodium Potassium Chloride Carbon Dioxide BUN Creatinine Glucose POC Glucose Lactic Acid 5.80 H* Calcium AST ALT Alkaline Phosphatase Troponin T Albumin HDL Cholesterol Ur Specific [place] Urine WBC (Auto) 12/22/19 12/22/19 12/22/19 04:47 04:47 10:35 WBC 13.8 H 12.7 H Hgb 11.4 L 11.1 L Hct 34.8 L MCHC RDW 16.9 H 16.7 H Lymph % (Auto) 12.0 L Hawkins % (Auto) 8.3 H Hawkins # 1.1 H Seg Neutrophils % 82.6 H 71.5 H Seg Neutrophils # 11.4 H 9.1 H PT INR APTT D-Dimer Heparin Anti-Xa Level Sodium Potassium Chloride 108.4 H Carbon Dioxide 14 L BUN 24 H Creatinine 2.3 H Glucose 160 H POC Glucose Lactic Acid Calcium AST ALT Alkaline Phosphatase Troponin T Albumin HDL Cholesterol Ur Specific [place] Urine WBC (Auto) 12/22/19 12/22/19 12/22/19 16:38 17:55 21:17 WBC Hgb 10.8 L 10.5 L Hct 33.4 L 32.3 L MCHC RDW 17.1 H Lymph % (Auto) Hawkins % (Auto) 8.6 H Hawkins # 0.9 H Seg Neutrophils % Seg Neutrophils # PT INR APTT D-Dimer Heparin Anti-Xa Level Sodium Potassium Chloride Carbon Dioxide BUN Creatinine Glucose POC Glucose Lactic Acid Calcium AST ALT Alkaline Phosphatase Troponin T Albumin HDL Cholesterol Ur Specific [place] 1.056 H Urine WBC (Auto) 8.0 H 12/22/19 12/23/19 12/23/19 21:17 02:30 02:30 WBC Hgb 10.3 L Hct 32.3 L MCHC RDW 17.3 H Lymph % (Auto) Hawkins % (Auto) Hawkins # Seg Neutrophils % Seg Neutrophils # PT 16.5 H INR 1.36 H APTT 37.9 H D-Dimer Heparin Anti-Xa Level Sodium 147 H Potassium Chloride 109.1 H Carbon Dioxide BUN 32 H Creatinine 2.5 H Glucose 133 H POC Glucose Lactic Acid Calcium AST 249 H ALT 186 H Alkaline Phosphatase 134 H Troponin T Albumin 3.1 L HDL Cholesterol Ur Specific [place] Urine WBC (Auto) 12/24/19 12/24/19 12/24/19 02:46 02:46 02:46 WBC Hgb 10.4 L Hct 32.2 L MCHC RDW 17.1 H Lymph % (Auto) Hawkins % (Auto) Hawkins # Seg Neutrophils % Seg Neutrophils # PT INR APTT D-Dimer Heparin Anti-Xa Level 0.22 L Sodium Potassium 3.4 L Chloride Carbon Dioxide 21 L BUN 25 H Creatinine 1.8 H Glucose POC Glucose Lactic Acid Calcium 8.3 L AST ALT Alkaline Phosphatase Troponin T Albumin HDL Cholesterol Ur Specific [place] Urine WBC (Auto) Chest x-ray: report reviewed, image reviewed CT scan - chest: report reviewed, image reviewed
[2019-12-24] MEDS: SODIUM CHLORIDE 0.9% 1000 ML 1,000 ML IV SCH (22:01)
[2019-12-25 05:01] LABS: Hematocrit 30.8 % (35.5-45.6); Hemoglobin 9.9 gm/dl (11.8-15.2); Mean Corpuscular HGB Conc 32 % (32-34); Mean Corpuscular Volume 87 fl (84-94); Red Blood Count 3.54 M/mm3 (3.65-5.03); Red Cell Distribution Width 16.9 % (13.2-15.2)
[2019-12-25 05:02] LABS: Platelet Count 205 K/mm3 (140-440)
[2019-12-25] MEDS: PIPERACIL/TAZOBACTA 4.5/NS 100 4.5 GM/100 ML VIAL IV SCH ×3 (05:04→21:48)
[2019-12-25] MEDS: hydrALAZINE 25 MG TAB PO SCH ×3 (05:05→21:47)
--- NOTE | 2019-12-25 07:53 | Progress Note ---
Assessment and Plan Assessment and plan: 64-year-old man with a history of hypertension, gout comes emergency room with acute onset of shortness of breath today. Upon arrival he was complaining of chest pain to the emergency room physician however he denies having chest pain. He complains of abdominal pain in his mid abdomen which he describes as a dull pain, intermittent every 5 minutes, intensity 6/10, no radiation admits to nausea, no vomiting, diarrhea, fever, chills. He states that since October his legs have been swollen and painful, he saw his primary care physician and was given medication for symptoms but he cannot recall the name. He denies weight loss, recent travel, surgery, positive sedentary lifestyle. Patient was found to have massive pulmonary emboli for which he will be admitted for, vascular evaluation is pending * Patient underwent angiogram of the pulmonary artery and thrombolysis of the right and left pulmonary artery by E Gila. Catheter was removed. It is not certain how this patient developed such massive PE despite having IVC filter. A full anticoagulation work-up is required outpatient has been discussed with the patient. We will switch to Eliquis as patient informs me that he has [employer] insurance. Have also advised the team about the status of insurance. Will discontinue heparin drip. * Anticipate discharge in a.m. if acute gout flareup is improving. Massive acute pulmonary emboli with right heart strain s/p pulmonary artery angiogram and thrombolysis of right and left pulm artery by EKOS thrombolysis catheter Now had removal of Bilateral Pulmonary Artery EKOS Thrombolysis Catheters and placement of Luann IVC Filter. On Heparin drip will discontinue and change to Eliquis feels better, currently no chest pain or SOB CT abdomen and pelvis poss pancreatis Surgery consulted Dr. Olson following Acute gout flare: Start on steroids. Right knee pain. Patient will obtain x-ray. Also due to bilateral lower extremity swelling ultrasound Doppler is pending. SIRS Started empiric antibiotics, follow cultures Acute kidney injury due to ATN Cont IV fluid, monitor kidney function, Nephrology following Discussed with Nephrology Abnormal cardiac enzymes, consulted cardiology Cardiologyfollowing outpatient stress test per cardiology. Hypokalemia replace po Hypernatremia now resolved NSTEMI type II NSVT. Cardiology following likely initiation of low-dose atenolol due to previously being held for bradycardia. hypertension Resumed norvasc hold Lisinopril because of VENU Hold atenolol because bradycardia. 12/24/19 Patient with massive acute pulmonary emboli with right heart strain s/p pulmonary artery angiogram and thrombolysis of right and left pulm artery by EKOS thrombolysis catheter, removal of Bilateral Pulmonary Artery EKOS Thrombolysis Catheters and placement of Luann IVC Filter. VENU improving Cr 1.8 today 12/26: Work-up as indicated above currently being worked up for DVT and also gout flare. Creatinine is improved. History Interval history: Patient seen and examined this morning reports right knee pain otherwise no worsening shortness of breath. Not adverse event reported to tx Hospitalist Physical - Physical exam Narrative exam: GEN: Not in acute distress, lying in bed HEENT: Normocephalic, atraumatic, Neck: supple, No JVD Lungs: Clear, no crackles, no wheeze heart;S1 and S2 reg, no murmurs, rubs or gallop Abd:soft, non tender, non distended, normal bowel sounds, Ext: No edema, no clubbing, no cyanosis, mild swelling the right knee. Tender to touch. Neuro: Awake,alert,oriented X3 , no focal sign - Constitutional Vitals: Temp Pulse Resp BP Pulse Ox 98.5 F 69 18 151/91 97 12/25/19 03:17 12/25/19 05:05 12/25/19 03:17 12/25/19 05:05 12/25/19 03:17 General appearance: Present: no acute distress HEART Score - HEART Score Troponin: Troponin T 0.570 ng/mL (0.00-0.029) H* D 12/21/19 23:59 Results - Labs CBC & Chem 7: 12/26/19 04:19 12/26/19 04:19 Labs: Laboratory Last Values WBC 9.0 K/mm3 (4.5-11.0) 12/25/19 04:12 RBC 3.54 M/mm3 (3.65-5.03) L 12/25/19 04:12 Hgb 9.9 gm/dl (11.8-15.2) L 12/25/19 04:12 Hct 30.8 % (35.5-45.6) L 12/25/19 04:12 MCV 87 fl (84-94) 12/25/19 04:12 MCH 28 pg (28-32) 12/25/19 04:12 MCHC 32 % (32-34) 12/25/19 04:12 RDW 16.9 % (13.2-15.2) H 12/25/19 04:12 Plt Count 205 K/mm3 (140-440) 12/25/19 04:12 Lymph % (Auto) 21.3 % (13.4-35.0) 12/22/19 16:38 [place] % (Auto) 8.6 % (0.0-7.3) H 12/22/19 16:38 Eos % (Auto) 0.1 % (0.0-4.3) 12/22/19 16:38 Baso % (Auto) 0.2 % (0.0-1.8) 12/22/19 16:38 Lymph # 2.2 K/mm3 (1.2-5.4) 12/22/19 16:38 [place] # 0.9 K/mm3 (0.0-0.8) H 12/22/19 16:38 Eos # 0.0 K/mm3 (0.0-0.4) 12/22/19 16:38 Baso # 0.0 K/mm3 (0.0-0.1) 12/22/19 16:38 Seg Neutrophils % 69.8 % (40.0-70.0) 12/22/19 16:38 Seg Neutrophils # 7.3 K/mm3 (1.8-7.7) 12/22/19 16:38 PT 16.5 Sec. (12.2-14.9) H 12/22/19 21:17 INR 1.36 (0.87-1.13) H 12/22/19 21:17 APTT 37.9 Sec. (24.2-36.6) H 12/22/19 21:17 Fibrinogen 330 mg/dl (211-480) 12/22/19 16:38 D-Dimer > 27882 ng/mlDDU (0-234) H 12/21/19 20:29 Heparin Anti-Xa Level 0.38 U.I./ml (0.3-0.7) 12/24/19 10:19 Sodium 141 mmol/L (137-145) 12/24/19 02:46 Potassium 3.4 mmol/L (3.6-5.0) L 12/24/19 02:46 Chloride 106.4 mmol/L (98-107) 12/24/19 02:46 Carbon Dioxide 21 mmol/L (22-30) L 12/24/19 02:46 Anion Gap 17 mmol/L 12/24/19 02:46 BUN 25 mg/dL (9-20) H 12/24/19 02:46 Creatinine 1.8 mg/dL (0.8-1.5) H 12/24/19 02:46 Estimated GFR 46 ml/min 12/24/19 02:46 BUN/Creatinine Ratio 14 % 12/24/19 02:46 Glucose 94 mg/dL (75-100) 12/24/19 02:46 POC Glucose 232 (70-105) H 12/21/19 20:19 Hemoglobin A1c 4.9 % (4-6) 12/22/19 04:47 Lactic Acid 5.80 mmol/L (0.7-2.0) H* 12/22/19 04:47 Calcium 8.3 mg/dL (8.4-10.2) L 12/24/19 02:46 Total Bilirubin 0.30 mg/dL (0.1-1.2) 12/23/19 02:30 Direct Bilirubin < 0.2 mg/dL (0-0.2) 12/23/19 02:30 Indirect Bilirubin 0.1 mg/dL 12/23/19 02:30 AST 249 units/L (5-40) H 12/23/19 02:30 ALT 186 units/L (7-56) H 12/23/19 02:30 Alkaline Phosphatase 134 units/L (35-129) H 12/23/19 02:30 Troponin T 0.570 ng/mL (0.00-0.029) H* D 12/21/19 23:59 Total Protein 6.7 g/dL (6.3-8.2) 12/23/19 02:30 Albumin 3.1 g/dL (3.9-5) L 12/23/19 02:30 Albumin/Globulin Ratio 0.9 % 12/23/19 02:30 Triglycerides 124 mg/dL (2-149) 12/21/19 20:29 Cholesterol 162 mg/dL (50-199) 12/21/19 20:29 LDL Cholesterol Direct 122 mg/dL (50-130) 12/21/19 20: HDL Cholesterol 27 mg/dL (40-59) L 12/21/19 20: Cholesterol/HDL Ratio 6.00 % 12/21/19 20: Lipase 16 units/L (13-60) 12/23/19 02:30 Urine Color Kiya (Yellow) 12/22/19 17:55 Urine Turbidity Slightly-cloudy (Clear) 12/22/19 17:55 Urine pH 5.0 (5.0-7.0) 12/22/19 17:55 Ur Specific [place] 1.056 (1.003-1.030) H 12/22/19 17:55 Urine Protein 100 mg/dl mg/dL (Negative) 12/22/19 17:55 Urine Glucose (UA) 50 mg/dL (Negative) 12/22/19 17:55 Urine Ketones Neg mg/dL (Negative) 12/22/19 17:55 Urine Blood Sm (Negative) 12/22/19 17:55 Urine Nitrite Neg (Negative) 12/22/19 17:55 Urine Bilirubin Neg (Negative) 12/22/19 17:55 Urine Urobilinogen 2.0 mg/dL (<2.0) 12/22/19 17:55 Ur Leukocyte Esterase Neg (Negative) 12/22/19 17:55 Urine WBC (Auto) 8.0 /HPF (0.0-6.0) H 12/22/19 17:55 Urine RBC (Auto) 13.0 /HPF (0.0-6.0) 12/22/19 17:55 U Epithel Cells (Auto) 1.0 /HPF (0-13.0) 12/22/19 17:55 Urine Bacteria (Auto) 1+ /HPF (Negative) 12/22/19 17:55 Urine Mucus 1+ /HPF 12/22/19 17:55 Urine Opiates Screen Presumptive negative 12/22/19 17:55 Urine Methadone Screen Presumptive negative 12/22/19 17:55 Ur Barbiturates Screen Presumptive negative 12/22/19 17:55 Ur Phencyclidine Scrn Presumptive negative 12/22/19 17:55 Ur Amphetamines Screen Presumptive negative 12/22/19 17:55 U Benzodiazepines Scrn Presumptive positive 12/22/19 17:55 Urine Cocaine Screen Presumptive negative 05/23/20 17:55 U Marijuana (THC) Screen Presumptive negative 12/22/19 17:55 Drugs of Abuse Note Disclamer 12/22/19 17:55 Microbiology: Microbiology 12/21/19 20:39 Peripheral/Venous Blood Culture - Preliminary NO GROWTH AFTER 72 HOURS 12/21/19 20:36 Peripheral/Venous Blood Culture - Preliminary NO GROWTH AFTER 72 HOURS 12/22/19 17:55 Urine,Clean Catch Urine Culture - Preliminary NO GROWTH AFTER 24 HOURS - Diagnostic Impressions Diagnostic Impressions: Echocardiogram 12/22/19 11:04 Transthoracic Echocardiogram Indication: Massive PE BP: 120/89 Conclusions *Global left ventricular wall motion and contractility are within normal limits. *The estimated ejection fraction is 55-60%. *Normal left ventricular diastolic filling is observed. *The right ventricle is mildly dilated. *The right ventricular global systolic function is moderately reduced. *The right atrium is mildly dilated. *There is mild aortic regurgitation. *There is mild mitral regurgitation. *There is evidence of mild pulmonary hypertension. *The pericardium appears normal. Findings Left Ventricle: The left ventricular chamber size is normal. There is no left ventricular hypertrophy. Global left ventricular wall motion and contractility are within normal limits. Global left ventricular systolic function is normal. The estimated ejection fraction is 55-60%. Normal left ventricular diastolic filling is observed. Left Atrium: The left atrium is moderately dilated. Right Ventricle: The right ventricle is mildly dilated. The right ventricular global systolic function is moderately reduced. Right Atrium: The right atrium is mildly dilated. Aortic Valve: The aortic valve is trileaflet. There is no evidence of aortic valve thickening. There is mild aortic regurgitation. There is no evidence of aortic stenosis. Mitral Valve: The mitral valve leaflets appear normal. There is mild mitral regurgitation. There is no evidence of mitral stenosis. Tricuspid Valve: The tricuspid valve leaflets are normal. There is mild tricuspid regurgitation. The right ventricular systolic pressure is calculated at 41 mmHg. There is evidence of mild pulmonary hypertension. There is no tricuspid stenosis. Pulmonic Valve: The pulmonic valve appears normal. There is mild pulmonic regurgitation. There is no pulmonic stenosis. Pericardium: The pericardium appears normal. Aorta: The aorta appears normal. Pulmonary Artery: The main pulmonary artery appears normal. Venous: The inferior vena cava is dilated. There is less than 50% respiratory change in the inferior vena cava dimension. Measurements Chambers 2D Name Value Normal Range IVSd (2D) 1.17 cm (0.6 - 1.1) LVPWd (2D) 1.18 cm (0.6 - 1.1) LVIDd (2D) 5.43 cm (3.7 - 5.6) LVIDs (2D) 3.85 cm (2 - 3.8) LV FS (2D) 29.11 % - EF Teichholz (2D) 55.36 % - Ao root diameter (2D) 3.7 cm (2 - 3.7) Volumes/Mass Name Value Normal Range LA ESV SP 4CH (A/L) 132.31 ml - LA ESV SP 2CH (A/L) 109.39 ml - LA ESV BP (A/L) 126.88 ml - LA ESV BP (A/L) index 55.65 ml/m2 - LA ESV SP 4CH (MOD) 124.42 ml - LA ESV SP 2CH (MOD) 100.28 ml - LA ESV BP (MOD) 115.23 ml - LA ESV BP (MOD) index 50.54 ml/m2 - LV EDV SP 4CH (MOD) 156.96 ml - LV ESV SP 4CH (MOD) 68.77 ml - EF SP 4CH (MOD) 56.18 % - LV EDV SP 2CH (MOD) 147.2 ml - LV ESV SP 2CH (MOD) 71.41 ml - EF SP 2CH (MOD) 51.49 % - LV EDV BP 152.04 ml - LV ESV BP 71.21 ml - BP EF (MOD) 53.16 % - Diastolic/Systolic Function Name Value Normal Range MV E-wave Vmax 0.47 m/sec - MV deceleration time 249.84 msec - MV A-wave Vmax 0.49 m/sec - MV E:A ratio 0.96 ratio - Aortic Valve Name Value Normal Range AV Vmax 1 m/sec - AV VTI 16.16 cm - AV peak gradient 4.01 mmHg - AV mean gradient 1.71 mmHg - LVOT diameter 2.63 cm - LVOT Vmax 0.66 m/sec - LVOT VTI 11.01 cm - LVOT peak gradient 1.77 mmHg - LVOT mean gradient 0.77 mmHg - SV LVOT 59.84 ml - NATHALIA (continuity Vmax) 3.61 cm2 - NATHALIA (continuity VTI) 3.7 cm2 - AR PHT 744.14 msec - AR peak gradient 97.45 mmHg - Ascending Ao 3.86 cm - Tricuspid Valve Name Value Normal Range TV E-wave Vmax 0.47 m/sec - TR Vmax 2.91 m/sec - TR peak gradient 33.85 mmHg - RAP 8 mmHg - RVSP 41 mmHg - Pulmonic Valve/Qp:Qs Name Value Normal Range LA end-diastolic Vmax 0.99 m/sec - RVOT Vmax 0.39 m/sec - RVOT VTI 9.53 cm - RVOT peak gradient 0.61 mmHg - PV acceleration time 76.12 msec - Summers/IV: Voiding Method Urinal IV Catheter Type [Right INT / Saline Lock Antecubital] IV Catheter Type [Left Hand] INT / Saline Lock Active Medications - Current Medications Current Medications: Generic Name Dose Route Start Last Admin Trade Name Freq PRN Reason Stop Dose Admin Acetaminophen 650 mg 12/21/19 23:12 Tylenol PO Q4H PRN Pain MILD(1-3)/Fever >100.5/VICENTE Acetaminophen/Hydrocodone Bitart 2 each 12/21/19 23:44 [place] 5/325 PO Q6H PRN Pain, Moderate (4-6) Amlodipine Besylate 10 mg 12/23/19 23:00 12/24/19 10:33 Amlodipine PO 10 mg DAILY ANGEL Administration Hydralazine HCl 25 mg 12/23/19 14:00 12/25/19 05:05 Apresoline PO 25 mg Q8HR ANGEL Administration Heparin Sodium/Sodium Chloride 25,000 unit in 500 mls @ 30 mls/hr 12/22/19 21:00 12/24/19 22:00 Heparin/ 0.45% Nacl-25,000 Unit/500 Ml IV 1,600 units/hr TITR ANGEL 32 mls/hr Administration Protocol 1,500 UNITS/HR Sodium Chloride 1,000 mls @ 75 mls/hr 12/23/19 17:00 12/24/19 22:01 Nacl 0.9% 1000 Ml IV 75 mls/hr DIRECT ANGEL Administration Piperacillin Sod/Tazobactam Sod 4.5 gm in 100 mls @ 200 mls/hr 12/24/19 14:00 12/25/19 05:04 Zosyn/Ns 4.5gm/100ml IV 12/26/19 13:59 200 mls/hr Q8HR ANGEL Administration Protocol Morphine Sulfate 4 mg 12/21/19 23:44 Morphine IV Q4H PRN Pain , Severe (7-10) Morphine Sulfate 2 mg 12/21/19 23:44 Morphine IV Q4H PRN Pain, Moderate (4-6) Ondansetron HCl 4 mg 12/21/19 23:44 12/22/19 01:22 Zofran IV 4 mg Q8H PRN Administration Nausea And Vomiting Sodium Chloride 10 ml 12/22/19 10:00 12/24/19 22:03 Sodium Chloride Flush Syringe 10 Ml IV 10 ml BID ANGEL Administration Sodium Chloride 10 ml 12/21/19 23:12 Sodium Chloride Flush Syringe 10 Ml IV PRN PRN LINE FLUSH
--- NOTE | 2019-12-25 09:00 | Progress Note ---
Assessment and Plan Acute Kidney Injury secondary to prerenal/Ischemic ATN with possibly worsened in setting of NSAID use: Acidosis: -labs are pending this AM -good UOP -Pt was taking Lisinopril, Indomethacin and Celebrex at home -CT of Abdomen/Pelvis showed no acute findings for kidneys -On 0.9% NS infusion at 75 ml/hr - started on lisinopril, if rising Cr may need to hold -Monitor I/O's Pulmonary Embolism: -On Heprain drip -S/p thrombolytic catheter placement by vascular for Alteplase infusion Hypertension: -Monitor BP closely Gout: -No NSAIDs, do not resume home Celebrex or Indomethacin due to renal failure -Patient to f/u with outpatient Library Assistant Lee alonzo MD [phone] Subjective Date of service: 12/25/19 Principal diagnosis: ARF ON CKD Interval history: no overnight events Objective - Vital Signs Vital signs: Vital Signs - 12hr 12/24/19 12/24/19 12/24/19 21:00 22:00 22:03 Temperature Pulse Rate 70 70 Respiratory Rate Respiratory 18 Rate [Bilateral Foot] Blood Pressure 139/95 O2 Sat by Pulse 97 Oximetry 12/24/19 12/25/19 12/25/19 23:36 03:17 05:05 Temperature 98.7 F 98.5 F Pulse Rate 65 69 69 Respiratory 18 18 Rate Respiratory Rate [Bilateral Foot] Blood Pressure 143/84 151/91 151/91 O2 Sat by Pulse 95 97 Oximetry 12/25/19 08:04 Temperature 98.2 F Pulse Rate 68 Respiratory 20 Rate Respiratory Rate [Bilateral Foot] Blood Pressure 158/87 O2 Sat by Pulse 96 Oximetry - Lab 12/25/19 04:12 12/24/19 02:46 Most recent lab results Calcium 8.3 mg/dL (8.4-10.2) L 12/24/19 02:46 Medications & Allergies - Medications Allergies/Adverse Reactions: Allergies No Known Allergies Allergy (Unverified 03/27/15 12:05) Home Medications: Home Medications Medication Instructions Recorded Confirmed Last Taken Type Atenolol [Tenormin] 100 mg PO DAILY #30 tablet 03/27/15 12/22/19 Unknown Rx amLODIPine 10 mg PO DAILY #30 tablet 03/27/15 12/22/19 Unknown Rx lisinopriL [Zestril TAB] 40 mg PO QDAY #30 tablet 03/27/15 12/22/19 Unknown Rx Prednisone [predniSONE 5 mg (6-Day 5 mg PO .TAPER #1 tab.ds.pk 12/30/16 12/22/19 Unknown Rx Pack, 21 Tabs)] Celecoxib [celeBREX] 50 mg PO BID #30 capsule 05/19/17 12/22/19 Unknown Rx Cyclobenzaprine [Flexeril] 10 mg PO TID PRN #20 tablet 05/19/17 12/22/19 Unknown Rx Indomethacin 50 mg PO Q8H #15 capsule 05/19/17 12/22/19 Unknown Rx Active Medications: Generic Name Dose Route Start Last Admin Trade Name Freq PRN Reason Stop Dose Admin Acetaminophen 650 mg 12/21/19 23:12 Tylenol PO Q4H PRN Pain MILD(1-3)/Fever >100.5/VICENTE Acetaminophen/Hydrocodone Bitart 2 each 12/21/19 23:44 [place] 5/325 PO Q6H PRN Pain, Moderate (4-6) Amlodipine Besylate 10 mg 12/23/19 23:00 12/24/19 10:33 Amlodipine PO 10 mg DAILY ANGEL Administration Apixaban 10 mg 12/25/19 10:00 Eliquis PO Q12HR ANGEL Protocol Atenolol 100 mg 12/25/19 10:00 Tenormin PO QDAY ANGEL Colchicine 0.6 mg 12/25/19 10:00 Colchicine PO QDAY ANGEL Cyclobenzaprine HCl 10 mg 12/25/19 09:30 Flexeril PO TID PRN Muscle Spasm Hydralazine HCl 25 mg 12/23/19 14:00 12/25/19 05:05 Apresoline PO 25 mg Q8HR ANGEL Administration Heparin Sodium/Sodium Chloride 25,000 unit in 500 mls @ 30 mls/hr 12/22/19 21:00 12/24/19 22:00 Heparin/ 0.45% Nacl-25,000 Unit/500 Ml IV 1,600 units/hr TITR ANGEL 32 mls/hr Administration Protocol 1,500 UNITS/HR Sodium Chloride 1,000 mls @ 75 mls/hr 12/23/19 17:00 12/24/19 22:01 Nacl 0.9% 1000 Ml IV 75 mls/hr DIRECT ANGEL Administration Piperacillin Sod/Tazobactam Sod 4.5 gm in 100 mls @ 200 mls/hr 12/24/19 14:00 12/25/19 05:04 Zosyn/Ns 4.5gm/100ml IV 12/26/19 13:59 200 mls/hr Q8HR ANGEL Administration Protocol Lisinopril 40 mg 12/25/19 10:00 Zestril PO QDAY [facility] Miscellaneous Medication 100 mg 12/25/19 10:00 Atenolol [Tenormin] PO DAILY [facility] Morphine Sulfate 4 mg 12/21/19 23:44 Morphine IV Q4H PRN Pain , Severe (7-10) Morphine Sulfate 2 mg 12/21/19 23:44 Morphine IV Q4H PRN Pain, Moderate (4-6) Ondansetron HCl 4 mg 12/21/19 23:44 12/22/19 01:22 Zofran IV 4 mg Q8H PRN Administration Nausea And Vomiting Prednisone 40 mg 12/25/19 10:00 Deltasone PO QDAY [facility] Sodium Chloride 10 ml 12/22/19 10:00 12/24/19 22:03 Sodium Chloride Flush Syringe 10 Ml IV 10 ml BID ANGEL Administration Sodium Chloride 10 ml 12/21/19 23:12 Sodium Chloride Flush Syringe 10 Ml IV PRN PRN LINE FLUSH
[2019-12-25 09:15] LABS: INR 1.33 (0.87-1.13)
[2019-12-25] MEDS ORDERED: CYCLOBENZAPRINE 10 MG TAB PO PRN (09:30)
--- NOTE | 2019-12-25 09:57 | XRay Report ---
RIGHT KNEE 2 VIEWS INDICATION / CLINICAL INFORMATION: Right knee pain. COMPARISON: None available. FINDINGS: BONES / JOINT(S): There are moderately advanced tricompartmental degenerative changes, most prominent involving the lateral tibiofemoral and patellofemoral joint spaces. There is a small suprapatellar j oint effusion. There is a possible small intra-articular loose body along the superior margin of the tibial eminence/tibial spines. There is no evidence of fracture, subluxation or destructive lesion. SOFT TISSUES: No significant abnormality. ADDITIONAL FINDINGS: None. Signer Name: Dg Kramer MD Signed: 12/25/2019 9:53 AM Workstation Name: [id number]
[2019-12-25] MEDS ORDERED: APIXABAN 5 MG TAB PO SCH (10:00)
[2019-12-25] MEDS ORDERED: NON-FORMULARY EACH (Atenolol [Tenormin] 100 MG) PO SCH (10:00)
--- NOTE | 2019-12-25 10:16 | Progress Note ---
Assessment and Plan 64 y/o male with bilateral PE s/p EKOS for catheter directed thrombolysis 1. Currently on oral anticoagulation. 2. All others per primary team 3. Follow up any renal recs 4. Will need full hypercoag work up. 5. Will need walk test prior to discharge as well. Subjective Date of service: 12/25/19 Principal diagnosis: ARF ON CKD Interval history: No acute events. Started on eliquis. Last O2 sat good documented on 2 liters. Objective Vital Signs - 12hr 12/24/19 12/25/19 12/25/19 23:36 03:17 05:05 Temperature 98.7 F 98.5 F Pulse Rate 65 69 69 Respiratory 18 18 Rate Blood Pressure 143/84 151/91 151/91 O2 Sat by Pulse 95 97 Oximetry 12/25/19 08:04 Temperature 98.2 F Pulse Rate 68 Respiratory 20 Rate Blood Pressure 158/87 O2 Sat by Pulse 96 Oximetry Constitutional: no acute distress, alert Eyes: non-icteric ENT: oropharynx moist Neck: supple Effort: normal Ascultation: Bilateral: clear Percussion: Bilateral: not dull Tactile fremitus: Bilateral: normal Cardiovascular: regular rate and rhythm (no mrg) Gastrointestinal: normoactive bowel sounds, soft, non-tender, non-distended Integumentary: normal Extremities: no cyanosis, pink and warm, other (2+ bilateral LE edema, R > L) Neurologic: normal mental status, non-focal exam, pupils equal and round, CN II- XII normal Psychiatric: mood appropriate, affect normal CBC and BMP: 12/25/19 04:12 12/24/19 02:46 ABG, PT/INR, D-dimer: PT/INR, D-dimer PT 16.2 Sec. (12.2-14.9) H 12/25/19 08:41 INR 1.33 (0.87-1.13) H 12/25/19 08:41 D-Dimer > 76958 ng/mlDDU (0-234) H 12/21/19 20:29 Abnormal lab findings: Abnormal Labs 12/21/19 12/21/19 12/21/19 00:58 00:58 20:19 WBC 14.9 H RBC Hgb 11.2 L Hct 34.7 L MCHC RDW 16.8 H Lymph % (Auto) 8.2 L [place] % (Auto) [place] # Seg Neutrophils % 87.2 H Seg Neutrophils # 13.0 H PT INR APTT D-Dimer Heparin Anti-Xa Level Sodium Potassium Chloride Carbon Dioxide 16 L BUN 22 H Creatinine 2.3 H Glucose 203 H POC Glucose 232 H Lactic Acid Calcium AST ALT Alkaline Phosphatase Troponin T Albumin HDL Cholesterol Ur Specific [place] Urine WBC (Auto) 12/21/19 12/21/19 12/21/19 20:29 20:29 20:29 WBC 12.1 H RBC Hgb 11.5 L Hct MCHC 31 L RDW 16.9 H Lymph % (Auto) [place] % (Auto) [place] # Seg Neutrophils % 81.1 H Seg Neutrophils # 9.8 H PT INR APTT D-Dimer > 35822 H Heparin Anti-Xa Level Sodium Potassium 3.3 L Chloride Carbon Dioxide 16 L BUN Creatinine 2.1 H Glucose 292 H POC Glucose Lactic Acid Calcium AST ALT Alkaline Phosphatase 178 H Troponin T 0.241 H* Albumin 3.6 L HDL Cholesterol 27 L Ur Specific [place] Urine WBC (Auto) 12/21/19 12/21/19 12/21/19 20:29 20:36 23:59 WBC RBC Hgb Hct MCHC RDW Lymph % (Auto) [place] % (Auto) [place] # Seg Neutrophils % Seg Neutrophils # PT 16.5 H INR 1.36 H APTT D-Dimer Heparin Anti-Xa Level Sodium Potassium Chloride Carbon Dioxide BUN Creatinine Glucose POC Glucose Lactic Acid 7.80 H* Calcium AST ALT Alkaline Phosphatase Troponin T 0.570 H* D Albumin HDL Cholesterol Ur Specific [place] Urine WBC (Auto) 12/21/19 12/22/19 12/22/19 23:59 04:47 04:47 WBC RBC Hgb Hct MCHC RDW Lymph % (Auto) [place] % (Auto) [place] # Seg Neutrophils % Seg Neutrophils # PT 18.5 H INR 1.58 H APTT 103.1 H* D-Dimer Heparin Anti-Xa Level 1.39 H Sodium Potassium Chloride Carbon Dioxide BUN Creatinine Glucose POC Glucose Lactic Acid 5.80 H* Calcium AST ALT Alkaline Phosphatase Troponin T Albumin HDL Cholesterol Ur Specific [place] Urine WBC (Auto) 12/22/19 12/22/19 12/22/19 04:47 04:47 10:35 WBC 13.8 H 12.7 H RBC Hgb 11.4 L 11.1 L Hct 34.8 L MCHC RDW 16.9 H 16.7 H Lymph % (Auto) 12.0 L [place] % (Auto) 8.3 H [place] # 1.1 H Seg Neutrophils % 82.6 H 71.5 H Seg Neutrophils # 11.4 H 9.1 H PT INR APTT D-Dimer Heparin Anti-Xa Level Sodium Potassium Chloride 108.4 H Carbon Dioxide 14 L BUN 24 H Creatinine 2.3 H Glucose 160 H POC Glucose Lactic Acid Calcium AST ALT Alkaline Phosphatase Troponin T Albumin HDL Cholesterol Ur Specific [place] Urine WBC (Auto) 12/22/19 12/22/19 12/22/19 16:38 17:55 21:17 WBC RBC Hgb 10.8 L 10.5 L Hct 33.4 L 32.3 L MCHC RDW 17.1 H Lymph % (Auto) [place] % (Auto) 8.6 H [place] # 0.9 H Seg Neutrophils % Seg Neutrophils # PT INR APTT D-Dimer Heparin Anti-Xa Level Sodium Potassium Chloride Carbon Dioxide BUN Creatinine Glucose POC Glucose Lactic Acid Calcium AST ALT Alkaline Phosphatase Troponin T Albumin HDL Cholesterol Ur Specific [place] 1.056 H Urine WBC (Auto) 8.0 H 12/22/19 12/23/19 12/23/19 21:17 02:30 02:30 WBC RBC Hgb 10.3 L Hct 32.3 L MCHC RDW 17.3 H Lymph % (Auto) [place] % (Auto) [place] # Seg Neutrophils % Seg Neutrophils # PT 16.5 H INR 1.36 H APTT 37.9 H D-Dimer Heparin Anti-Xa Level Sodium 147 H Potassium Chloride 109.1 H Carbon Dioxide BUN 32 H Creatinine 2.5 H Glucose 133 H POC Glucose Lactic Acid Calcium AST 249 H ALT 186 H Alkaline Phosphatase 134 H Troponin T Albumin 3.1 L HDL Cholesterol Ur Specific [place] Urine WBC (Auto) 12/24/19 12/24/19 12/24/19 02:46 02:46 02:46 WBC RBC Hgb 10.4 L Hct 32.2 L MCHC RDW 17.1 H Lymph % (Auto) [place] % (Auto) [place] # Seg Neutrophils % Seg Neutrophils # PT INR APTT D-Dimer Heparin Anti-Xa Level 0.22 L Sodium Potassium 3.4 L Chloride Carbon Dioxide 21 L BUN 25 H Creatinine 1.8 H Glucose POC Glucose Lactic Acid Calcium 8.3 L AST ALT Alkaline Phosphatase Troponin T Albumin HDL Cholesterol Ur Specific [place] Urine WBC (Auto) 12/25/19 12/25/19 04:12 08:41 WBC RBC 3.54 L Hgb 9.9 L Hct 30.8 L MCHC RDW 16.9 H Lymph % (Auto) [place] % (Auto) [place] # Seg Neutrophils % Seg Neutrophils # PT 16.2 H INR 1.33 H APTT D-Dimer Heparin Anti-Xa Level Sodium Potassium Chloride Carbon Dioxide BUN Creatinine Glucose POC Glucose Lactic Acid Calcium AST ALT Alkaline Phosphatase Troponin T Albumin HDL Cholesterol Ur Specific [place] Urine WBC (Auto)
--- NOTE | 2019-12-25 10:28 | Progress Note ---
Assessment and Plan Agree with present cardiac management, including initiation of atenolol today in setting of NSVT. CE elevation appears c/w NSTEMI type II insetting of acute PE and VENU. Can consider stress testing as OP once medically stabilized. Eliquis initiated today per primary team. BLE venous duplex pending - pt noted to have right knee swelling which he attributes to gout. Per pulmonary, pt will need full hypercoagulable w/u. The patient has been seen in conjunction with Dr. Lam who agrees with the assessment and plan of care. - Patient Problems (1) Acute pulmonary embolism Current Visit: Yes Status: Acute Plan to address problem: massive acute bilateral PE with CT evidence of right heart strain, s/p EKOS (2) NSTEMI (non-ST elevated myocardial infarction) Current Visit: Yes Status: Acute Plan to address problem: type II in setting of acute PE and VENU (3) VENU (acute kidney injury) Current Visit: Yes Status: Acute (4) Abnormal CT of the abdomen Current Visit: Yes Status: Acute Plan to address problem: general surgery recs noted (5) NSVT (nonsustained ventricular tachycardia) Current Visit: Yes Status: Acute (6) HTN (hypertension) Current Visit: Yes Status: Chronic (7) Gout Current Visit: Yes Status: Chronic Subjective Date of service: 12/25/19 Principal diagnosis: PE Interval history: pt resting in bed, no current cardiac complaints. has not been OOB due to right knee swelling - ? gout. heparin gtt infusing. in SR on tele with 2-3 beat runs NSVT noted overnight. Objective Last Vital Signs Temp 98.2 F 12/25/19 08:04 Pulse 68 12/25/19 08:04 Resp 20 12/25/19 08:04 BP 158/87 12/25/19 08:04 Pulse Ox 96 12/25/19 08:04 - Physical Examination General: No Apparent Distress HEENT: Positive: PERRL, Normocephaly, Mucus Membranes Moist Neck: Positive: neck supple, trachea midline Cardiac: Positive: Reg Rate and Rhythm, S1/S2 Lungs: Positive: Decreased Breath Sounds Neuro: Positive: Grossly Intact Abdomen: Negative: Tender Skin: Negative: Rash Musculoskeletal: other (right knee swelling) - Labs and Meds Coagulation 12/25/19 Range/Units 08:41 PT 16.2 H (12.2-14.9) Sec. INR 1.33 H (0.87-1.13) CBC 12/25/19 Range/Units 04:12 WBC 9.0 (4.5-11.0) K/mm3 RBC 3.54 L (3.65-5.03) M/mm3 Hgb 9.9 L (11.8-15.2) gm/dl Hct 30.8 L (35.5-45.6) % Plt Count 205 (140-440) K/mm3 - Imaging and Cardiology EKG: report reviewed, image reviewed Echo: report reviewed (EF 55-60%, RV mildly dilated, RV systolic function mod reduced, RA mildy dilated, mild AR,mild MR, mild pulm HTN with RVSP 41mmHg. ) - Telemetry EKG Rhythm: Sinus Rhythm
--- NOTE | 2019-12-25 12:08 | Vascular Lab Report ---
DUPLEX DOPPLER LOWER EXTREMITY VEINS, BILATERAL INDICATION / CLINICAL INFORMATION: LE edema. TECHNIQUE: Duplex doppler imaging was performed through the veins of both lower extremities using venous denia jam and other maneuvers. COMPARISON: None available. FINDINGS: Right Common Femoral vein: Negative. Right Femoral vein: Nonocclusive acute DVT Right Popliteal vein: Acute nonocclusive DVT Right Calf veins: Nonocclusive DVT. Left Common Femoral vein: Negative. Left Femoral vein: Acute nonocclusive DVT mid to distal superficial femoral vein. Left Popliteal vein: Negative. Left Calf veins: Negative. Additional findings: 3.6 cm right popliteal cyst. IMPRESSION: 1. Acute nonocclusive DVT right femoral, popliteal and deep calf veins. 2. Acute nonocclusive DVT left mid to distal femoral vein. Signer Name: Gerard Hutchinson MD Signed: 12/25/2019 12:03 PM Workstation Name: [id number]
[2019-12-25] MEDS: atenoloL 50 MG TAB PO SCH (13:24)
--- NOTE | 2019-12-25 13:41 | Progress Note ---
Assessment and Plan 64-year-old male with submassive pulmonary embolism and bilateral lower extremity DVT with risk factor of immobility from gout. Patient will need anticoagulation for 6 months at full strength given submassive pulmonary embolism. Afterwards, I recommend he be placed on Eliquis 2.5 mg or 5 mg twice a day until his gout flareups resulting in temporary immobility are under control. Otherwise, he is likely to relapse. Patient has bilateral lower extremity DVT. Status post IVC filter. Discussed with patient he will need to have IVC filter removed in the next 2 to 3 months. Card provided. Told to follow-up with Dr. Hernandez Subjective Date of service: 12/25/19 Principal diagnosis: PE Interval history: Status post thrombolytic therapy. Respiratory status improved and patient feels better from a breathing standpoint. Still has lower extremity pain predominantly in the knees and ankles. Reports having "gout flareups". This resulted in him being immobile for long periods of time. Objective - Constitutional Vitals: Vital Signs - 12hr 12/25/19 12/25/19 12/25/19 03:17 05:05 08:04 Temperature 98.5 F 98.2 F Pulse Rate 69 69 68 Respiratory 18 20 Rate Blood Pressure 151/91 151/91 158/87 O2 Sat by Pulse 97 96 Oximetry 12/25/19 12/25/19 12/25/19 11:51 13:24 13:25 Temperature 98.6 F Pulse Rate 83 78 78 Respiratory 20 Rate Blood Pressure 178/98 O2 Sat by Pulse 97 Oximetry General appearance: Present: no acute distress - EENT Eyes: EOM intact ENT: hearing intact - Respiratory Respiratory effort: normal - Psychiatric Psychiatric: appropriate mood/affect, cooperative - Labs CBC & Chem 7: 12/25/19 04:12 12/24/19 02:46 Labs: Abnormal lab results 12/25/19 12/25/19 Range/Units 04:12 08:41 RBC 3.54 L (3.65-5.03) M/mm3 Hgb 9.9 L (11.8-15.2) gm/dl Hct 30.8 L (35.5-45.6) % RDW 16.9 H (13.2-15.2) % PT 16.2 H (12.2-14.9) Sec. INR 1.33 H (0.87-1.13) Medications & Allergies - Medications Allergies/Adverse Reactions: Allergies No Known Allergies Allergy (Unverified 03/27/15 12:05) Home Medications: Home Medications Medication Instructions Recorded Confirmed Last Taken Type Atenolol [Tenormin] 100 mg PO DAILY #30 tablet 03/27/15 12/22/19 Unknown Rx amLODIPine 10 mg PO DAILY #30 tablet 03/27/15 12/22/19 Unknown Rx lisinopriL [Zestril TAB] 40 mg PO QDAY #30 tablet 03/27/15 12/22/19 Unknown Rx Prednisone [predniSONE 5 mg (6-Day 5 mg PO .TAPER #1 tab.ds.pk 12/30/16 12/22/19 Unknown Rx Pack, 21 Tabs)] Celecoxib [celeBREX] 50 mg PO BID #30 capsule 05/19/17 12/22/19 Unknown Rx Cyclobenzaprine [Flexeril] 10 mg PO TID PRN #20 tablet 05/19/17 12/22/19 Unknown Rx Indomethacin 50 mg PO Q8H #15 capsule 05/19/17 12/22/19 Unknown Rx Active Medications: Generic Name Dose Route Start Last Admin Trade Name Freq PRN Reason Stop Dose Admin Acetaminophen 650 mg 12/21/19 23:12 Tylenol PO Q4H PRN Pain MILD(1-3)/Fever >100.5/VICENTE Acetaminophen/Hydrocodone Bitart 2 each 12/21/19 23:44 [place] 5/325 PO Q6H PRN Pain, Moderate (4-6) Amlodipine Besylate 10 mg 12/23/19 23:00 12/24/19 10:33 Amlodipine PO 10 mg DAILY ANGEL Administration Apixaban 10 mg 12/25/19 10:00 Eliquis PO 12/31/19 22:01 Q12HR ANGEL Protocol Atenolol 100 mg 12/25/19 10:00 12/25/19 13:24 Tenormin PO 100 mg QDAY ANGEL Administration Colchicine 0.6 mg 12/25/19 10:00 Colchicine PO QDAY ANGEL Cyclobenzaprine HCl 10 mg 12/25/19 09:30 Flexeril PO TID PRN Muscle Spasm Hydralazine HCl 25 mg 12/23/19 14:00 12/25/19 13:25 Apresoline PO 25 mg Q8HR ANGEL Administration Sodium Chloride 1,000 mls @ 75 mls/hr 12/23/19 17:00 12/24/19 22:01 Nacl 0.9% 1000 Ml IV 75 mls/hr DIRECT ANGEL Administration Piperacillin Sod/Tazobactam Sod 4.5 gm in 100 mls @ 200 mls/hr 12/24/19 14:00 12/25/19 13:17 Zosyn/Ns 4.5gm/100ml IV 12/26/19 13:59 200 mls/hr Q8HR ANGEL Administration Protocol Lisinopril 40 mg 12/25/19 10:00 Zestril PO QDAY ANGEL Morphine Sulfate 4 mg 12/21/19 23:44 Morphine IV Q4H PRN Pain , Severe (7-10) Morphine Sulfate 2 mg 12/21/19 23:44 Morphine IV Q4H PRN Pain, Moderate (4-6) Ondansetron HCl 4 mg 12/21/19 23:44 12/22/19 01:22 Zofran IV 4 mg Q8H PRN Administration Nausea And Vomiting Prednisone 40 mg 12/25/19 10:00 Deltasone PO QDAY ANGEL Sodium Chloride 10 ml 12/22/19 10:00 12/25/19 13:26 Sodium Chloride Flush Syringe 10 Ml IV 10 ml BID ANGEL Administration Sodium Chloride 10 ml 12/21/19 23:12 Sodium Chloride Flush Syringe 10 Ml IV PRN PRN LINE FLUSH HEART Score - HEART Score Troponin: Troponin T 0.570 ng/mL (0.00-0.029) H* D 12/21/19 23:59
[2019-12-25] MEDS: LISINOPRIL 40 MG TAB PO SCH (16:19)
[2019-12-25] MEDS: APIXABAN 5 MG TAB PO SCH (16:19)
[2019-12-25] MEDS: COLCHICINE 0.6 MG CAP PO SCH (16:20)
[2019-12-25] MEDS: predniSONE 20 MG TAB PO SCH (16:20)
[2019-12-25] MEDS: amLODIPine 10 MG TAB PO SCH (16:20)
[2019-12-25] MEDS: HYDROcodone/ACETAMINOPHEN 5-325 MG TAB PO PRN (17:45)
[2019-12-25] MEDS: SODIUM CHLORIDE 0.9% 1000 ML 1,000 ML IV SCH (17:45)
[2019-12-26] MEDS: APIXABAN 5 MG TAB PO SCH ×3 (00:05→21:24)
[2019-12-26 04:38] LABS: Hematocrit 31.1 % (35.5-45.6)
[2019-12-26 04:55] LABS: BUN/Creatinine Ratio 10; Blood Urea Nitrogen 14 mg/dL (9-20); Calcium 8.8 mg/dL (8.4-10.2); Hemolysis Index 0
[2019-12-26] MEDS: PIPERACIL/TAZOBACTA 4.5/NS 100 4.5 GM/100 ML VIAL IV SCH (06:10)
[2019-12-26] MEDS: hydrALAZINE 25 MG TAB PO SCH (06:11)
[2019-12-26 08:11] LABS: INR 1.95 (0.87-1.13)
[2019-12-26] MEDS: SODIUM CHLORIDE 0.9% 1000 ML 1,000 ML IV SCH (10:52)
[2019-12-26] MEDS: amLODIPine 10 MG TAB PO SCH (10:53)
[2019-12-26] MEDS: predniSONE 20 MG TAB PO SCH (10:53)
[2019-12-26] MEDS: LISINOPRIL 40 MG TAB PO SCH (10:53)
[2019-12-26] MEDS: COLCHICINE 0.6 MG CAP PO SCH (10:53)
[2019-12-26] MEDS: atenoloL 50 MG TAB PO SCH (10:53)
--- NOTE | 2019-12-26 10:58 | Progress Note ---
Assessment and Plan Optimize BP and HR - initiate lopressor. CE elevation appears c/w NSTEMI type II insetting of acute PE and VENU. Can consider stress testing as OP once medically stabilized. BLE venous duplex positive for BLE nonocclusive DVT. Cont Eliquis per primary team/vascular team. Currently stable cardiac status. Pt may discharge from cardiology standpoint. Recommend follow up in our office with Dr. Cedrick Gerber within 1-2 weeks of discharge ([phone]). The patient has been seen in conjunction with Dr. Lam who agrees with the assessment and plan of care. - Patient Problems (1) Acute pulmonary embolism Current Visit: Yes Status: Acute Plan to address problem: massive acute bilateral PE with CT evidence of right heart strain, s/p EKOS (2) DVT (deep venous thrombosis) Current Visit: Yes Status: Acute (3) NSTEMI (non-ST elevated myocardial infarction) Current Visit: Yes Status: Acute Plan to address problem: type II in setting of acute PE and VENU (4) VENU (acute kidney injury) Current Visit: Yes Status: Acute (5) Abnormal CT of the abdomen Current Visit: Yes Status: Acute Plan to address problem: general surgery recs noted (6) NSVT (nonsustained ventricular tachycardia) Current Visit: Yes Status: Acute (7) HTN (hypertension) Current Visit: Yes Status: Chronic (8) Gout Current Visit: Yes Status: Chronic Subjective Date of service: 12/26/19 Principal diagnosis: PE Interval history: pt resting in bed, no current cardiac complaints. in SR on tele with brief bouts of NSVT noted overnight. Objective Last Vital Signs Temp 98.2 F 12/26/19 08:12 Pulse 65 12/26/19 08:12 Resp 22 12/26/19 08:12 BP 155/98 12/26/19 08:12 Pulse Ox 98 12/26/19 09:33 - Physical Examination General: No Apparent Distress HEENT: Positive: PERRL, Normocephaly, Mucus Membranes Moist Neck: Positive: neck supple, trachea midline Cardiac: Positive: Reg Rate and Rhythm, S1/S2 Lungs: Positive: Decreased Breath Sounds Neuro: Positive: Grossly Intact Abdomen: Negative: Tender Skin: Negative: Rash Musculoskeletal: other (right knee swelling) - Labs and Meds Coagulation 12/26/19 Range/Units 07:49 PT 21.7 H (12.2-14.9) Sec. INR 1.95 H (0.87-1.13) CBC 12/26/19 Range/Units 04:19 Hgb 10.0 L (11.8-15.2) gm/dl Hct 31.1 L (35.5-45.6) % Plt Count 227 (140-440) K/mm3 Comprehensive Metabolic Panel 12/26/19 Range/Units 04:19 Sodium 143 (137-145) mmol/L Potassium 3.8 (3.6-5.0) mmol/L Chloride 106.6 (98-107) mmol/L Carbon Dioxide 22 (22-30) mmol/L BUN 14 (9-20) mg/dL Creatinine 1.4 (0.8-1.5) mg/dL Glucose 118 H (75-100) mg/dL Calcium 8.8 (8.4-10.2) mg/dL - Imaging and Cardiology EKG: report reviewed, image reviewed Echo: report reviewed (EF 55-60%, RV mildly dilated, RV systolic function mod reduced, RA mildy dilated, mild AR,mild MR, mild pulm HTN with RVSP 41mmHg. )
--- NOTE | 2019-12-26 11:14 | Progress Note ---
Assessment and Plan Acute Renal Failure secondary to Ischemic ATN vs Prerenalvs NSAID use: Acidosis: -Serum creatinine trend down to 1.4 today, yesterday's was 1.8. Has good UOP of 1150 ml. -Patient was taking Lisinopril, Indomethacin and Celebrex at home -Lisinopril resumed at 40 mg po daily noted -CT of Abdomen/Pelvis- No acute findings for kidneys -CXR- lungs are clear -On NS@ 75 ml/hr -Obtain urine lytes -Avoid nephrotoxic agents -Monitor I/O's -Continue to monitor renal function closely Pulmonary Embolism: -S/P Heparin drip -S/P thrombolytic catheter placement by vascular for Alteplase infusion -Now on Eliquis Hypertension: -Monitor BP -On Lisinopril, Metoprolol and Amlodipine Gout: -No NSAID's, do not resume home Celebrex or Indomethacin due to renal failure -Can give Tramadol if needed -Patient to f/u with outpatient [facility] Subjective Date of service: 12/26/19 Principal diagnosis: PE Interval history: Patient seen sitting up in bed. Reviewed renal plan of care. Objective - Vital Signs Vital signs: Vital Signs - 12hr 12/25/19 12/26/19 12/26/19 23:25 03:41 06:11 Temperature 97.9 F 98.3 F Pulse Rate 66 55 L 57 L Respiratory 18 18 Rate Blood Pressure 122/76 141/89 154/88 O2 Sat by Pulse 91 100 Oximetry 12/26/19 12/26/19 08:12 09:33 Temperature 98.2 F Pulse Rate 65 Respiratory 22 Rate Blood Pressure 155/98 O2 Sat by Pulse 97 98 Oximetry - General Appearance General appearance: well-developed, appears stated age, fatigue EENT: ATNC, PERRL, hearing intact, vision intact Neck: no JVD, supple Respiratory: Present: Decreased Breath Sounds Cardiology: regular, S1S2 Gastrointestinal: normoactive bowel sounds Integumentary: warm and dry Neurologic: alert and oriented x3 Musculoskeletal: other (no edema) - Lab 12/26/19 04:19 12/26/19 04:19 Most recent lab results Calcium 8.8 mg/dL (8.4-10.2) 12/26/19 04:19 Magnesium 2.10 mg/dL (1.7-2.3) 12/25/19 14:43 Medications & Allergies - Medications Allergies/Adverse Reactions: Allergies No Known Allergies Allergy (Unverified 03/27/15 12:05) Home Medications: Home Medications Medication Instructions Recorded Confirmed Last Taken Type Atenolol [Tenormin] 100 mg PO DAILY #30 tablet 03/27/15 12/22/19 Unknown Rx amLODIPine 10 mg PO DAILY #30 tablet 03/27/15 12/22/19 Unknown Rx lisinopriL [Zestril TAB] 40 mg PO QDAY #30 tablet 03/27/15 12/22/19 Unknown Rx Prednisone [predniSONE 5 mg (6-Day 5 mg PO .TAPER #1 tab.ds.pk 12/30/16 12/22/19 Unknown Rx Pack, 21 Tabs)] Celecoxib [celeBREX] 50 mg PO BID #30 capsule 05/19/17 12/22/19 Unknown Rx Cyclobenzaprine [Flexeril] 10 mg PO TID PRN #20 tablet 05/19/17 12/22/19 Unknown Rx Indomethacin 50 mg PO Q8H #15 capsule 05/19/17 12/22/19 Unknown Rx Active Medications: Generic Name Dose Route Start Last Admin Trade Name Freq PRN Reason Stop Dose Admin Acetaminophen 650 mg 12/21/19 23:12 Tylenol PO Q4H PRN Pain MILD(1-3)/Fever >100.5/VICENTE Acetaminophen/Hydrocodone Bitart 2 each 12/21/19 23:44 12/25/19 17:45 [place] 5/325 PO 2 each Q6H PRN Administration Pain, Moderate (4-6) Amlodipine Besylate 10 mg 12/23/19 23:00 12/26/19 10:53 Amlodipine PO 10 mg DAILY ANGEL Administration Apixaban 10 mg 12/25/19 10:00 12/26/19 10:53 Eliquis PO 12/31/19 22:01 10 mg Q12HR ANGEL Administration Protocol Colchicine 0.6 mg 12/25/19 10:00 12/26/19 10:53 Colchicine PO 0.6 mg QDAY ANGEL Administration Cyclobenzaprine HCl 10 mg 12/25/19 09:30 12/25/19 16:19 Flexeril PO 10 mg TID PRN Administration Muscle Spasm Sodium Chloride 1,000 mls @ 75 mls/hr 12/23/19 17:00 12/26/19 10:52 Nacl 0.9% 1000 Ml IV 75 mls/hr DIRECT ANGEL Administration Piperacillin Sod/Tazobactam Sod 4.5 gm in 100 mls @ 200 mls/hr 12/24/19 14:00 12/26/19 06:10 Zosyn/Ns 4.5gm/100ml IV 12/26/19 13:59 200 mls/hr Q8HR ANGEL Administration Protocol Lisinopril 40 mg 12/25/19 10:00 12/26/19 10:53 Zestril PO 40 mg QDAY ANGEL Administration Metoprolol Tartrate 50 mg 12/26/19 22:00 Metoprolol PO BID ANGEL Morphine Sulfate 4 mg 12/21/19 23:44 Morphine IV Q4H PRN Pain , Severe (7-10) Morphine Sulfate 2 mg 12/21/19 23:44 Morphine IV Q4H PRN Pain, Moderate (4-6) Ondansetron HCl 4 mg 12/21/19 23:44 12/22/19 01:22 Zofran IV 4 mg Q8H PRN Administration Nausea And Vomiting Prednisone 40 mg 12/25/19 10:00 12/26/19 10:53 Deltasone PO 40 mg QDAY ANGEL Administration Sodium Chloride 10 ml 12/22/19 10:00 12/26/19 10:54 Sodium Chloride Flush Syringe 10 Ml IV 10 ml BID ANGEL Administration Sodium Chloride 10 ml 12/21/19 23:12 Sodium Chloride Flush Syringe 10 Ml IV PRN PRN LINE FLUSH
--- NOTE | 2019-12-26 13:03 | Progress Note ---
Assessment and Plan 64 y/o male with bilateral PE s/p EKOS for catheter directed thrombolysis No new recs for today. Once oxygen requirement established, if any, no objection to discharge from pulm standpoint. 1. Currently on oral anticoagulation. 2. All others per primary team 3. Follow up any renal recs 4. Will need full hypercoag work up. 5. Will need walk test prior to discharge as well. Subjective Date of service: 12/26/19 Principal diagnosis: PE Interval history: No acute events. Still on 2 liters NC. Objective Vital Signs - 12hr 12/26/19 12/26/19 12/26/19 03:41 06:11 08:12 Temperature 98.3 F 98.2 F Pulse Rate 55 L 57 L 65 Respiratory 18 22 Rate Blood Pressure 141/89 154/88 155/98 O2 Sat by Pulse 100 97 Oximetry 12/26/19 12/26/19 09:33 11:27 Temperature 98.8 F Pulse Rate 50 L Respiratory 24 Rate Blood Pressure 135/87 O2 Sat by Pulse 98 96 Oximetry Constitutional: no acute distress, alert Eyes: non-icteric ENT: oropharynx moist Neck: supple Effort: normal Ascultation: Bilateral: clear Percussion: Bilateral: not dull Tactile fremitus: Bilateral: normal Cardiovascular: regular rate and rhythm (no mrg) Gastrointestinal: normoactive bowel sounds, soft, non-tender, non-distended Integumentary: normal Extremities: no cyanosis, pink and warm, other (2+ bilateral LE edema, R > L) Neurologic: normal mental status, non-focal exam, pupils equal and round, CN II- XII normal Psychiatric: mood appropriate, affect normal CBC and BMP: 12/26/19 04:19 12/26/19 04:19 ABG, PT/INR, D-dimer: PT/INR, D-dimer PT 21.7 Sec. (12.2-14.9) H 12/26/19 07:49 INR 1.95 (0.87-1.13) H 12/26/19 07:49 D-Dimer > 31320 ng/mlDDU (0-234) H 12/21/19 20:29 Abnormal lab findings: Abnormal Labs 12/21/19 12/21/19 12/21/19 00:58 00:58 20:19 WBC 14.9 H RBC Hgb 11.2 L Hct 34.7 L MCHC RDW 16.8 H Lymph % (Auto) 8.2 L [place] % (Auto) [place] # Seg Neutrophils % 87.2 H Seg Neutrophils # 13.0 H PT INR APTT D-Dimer Heparin Anti-Xa Level Sodium Potassium Chloride Carbon Dioxide 16 L BUN 22 H Creatinine 2.3 H Glucose 203 H POC Glucose 232 H Lactic Acid Calcium AST ALT Alkaline Phosphatase Troponin T Albumin HDL Cholesterol Ur Specific [place] Urine WBC (Auto) 12/21/19 12/21/19 12/21/19 20:29 20:29 20:29 WBC 12.1 H RBC Hgb 11.5 L Hct MCHC 31 L RDW 16.9 H Lymph % (Auto) [place] % (Auto) [place] # Seg Neutrophils % 81.1 H Seg Neutrophils # 9.8 H PT INR APTT D-Dimer > 67747 H Heparin Anti-Xa Level Sodium Potassium 3.3 L Chloride Carbon Dioxide 16 L BUN Creatinine 2.1 H Glucose 292 H POC Glucose Lactic Acid Calcium AST ALT Alkaline Phosphatase 178 H Troponin T 0.241 H* Albumin 3.6 L HDL Cholesterol 27 L Ur Specific [place] Urine WBC (Auto) 12/21/19 12/21/19 12/21/19 20:29 20:36 23:59 WBC RBC Hgb Hct MCHC RDW Lymph % (Auto) [place] % (Auto) [place] # Seg Neutrophils % Seg Neutrophils # PT 16.5 H INR 1.36 H APTT D-Dimer Heparin Anti-Xa Level Sodium Potassium Chloride Carbon Dioxide BUN Creatinine Glucose POC Glucose Lactic Acid 7.80 H* Calcium AST ALT Alkaline Phosphatase Troponin T 0.570 H* D Albumin HDL Cholesterol Ur Specific [place] Urine WBC (Auto) 12/21/19 12/22/19 12/22/19 23:59 04:47 04:47 WBC RBC Hgb Hct MCHC RDW Lymph % (Auto) [place] % (Auto) [place] # Seg Neutrophils % Seg Neutrophils # PT 18.5 H INR 1.58 H APTT 103.1 H* D-Dimer Heparin Anti-Xa Level 1.39 H Sodium Potassium Chloride Carbon Dioxide BUN Creatinine Glucose POC Glucose Lactic Acid 5.80 H* Calcium AST ALT Alkaline Phosphatase Troponin T Albumin HDL Cholesterol Ur Specific [place] Urine WBC (Auto) 12/22/19 12/22/19 12/22/19 04:47 04:47 10:35 WBC 13.8 H 12.7 H RBC Hgb 11.4 L 11.1 L Hct 34.8 L MCHC RDW 16.9 H 16.7 H Lymph % (Auto) 12.0 L [place] % (Auto) 8.3 H [place] # 1.1 H Seg Neutrophils % 82.6 H 71.5 H Seg Neutrophils # 11.4 H 9.1 H PT INR APTT D-Dimer Heparin Anti-Xa Level Sodium Potassium Chloride 108.4 H Carbon Dioxide 14 L BUN 24 H Creatinine 2.3 H Glucose 160 H POC Glucose Lactic Acid Calcium AST ALT Alkaline Phosphatase Troponin T Albumin HDL Cholesterol Ur Specific [place] Urine WBC (Auto) 12/22/19 12/22/19 12/22/19 16:38 17:55 21:17 WBC RBC Hgb 10.8 L 10.5 L Hct 33.4 L 32.3 L MCHC RDW 17.1 H Lymph % (Auto) [place] % (Auto) 8.6 H [place] # 0.9 H Seg Neutrophils % Seg Neutrophils # PT INR APTT D-Dimer Heparin Anti-Xa Level Sodium Potassium Chloride Carbon Dioxide BUN Creatinine Glucose POC Glucose Lactic Acid Calcium AST ALT Alkaline Phosphatase Troponin T Albumin HDL Cholesterol Ur Specific [place] 1.056 H Urine WBC (Auto) 8.0 H 12/22/19 12/23/19 12/23/19 21:17 02:30 02:30 WBC RBC Hgb 10.3 L Hct 32.3 L MCHC RDW 17.3 H Lymph % (Auto) [place] % (Auto) [place] # Seg Neutrophils % Seg Neutrophils # PT 16.5 H INR 1.36 H APTT 37.9 H D-Dimer Heparin Anti-Xa Level Sodium 147 H Potassium Chloride 109.1 H Carbon Dioxide BUN 32 H Creatinine 2.5 H Glucose 133 H POC Glucose Lactic Acid Calcium AST 249 H ALT 186 H Alkaline Phosphatase 134 H Troponin T Albumin 3.1 L HDL Cholesterol Ur Specific [place] Urine WBC (Auto) 12/24/19 12/24/19 12/24/19 02:46 02:46 02:46 WBC RBC Hgb 10.4 L Hct 32.2 L MCHC RDW 17.1 H Lymph % (Auto) [place] % (Auto) [place] # Seg Neutrophils % Seg Neutrophils # PT INR APTT D-Dimer Heparin Anti-Xa Level 0.22 L Sodium Potassium 3.4 L Chloride Carbon Dioxide 21 L BUN 25 H Creatinine 1.8 H Glucose POC Glucose Lactic Acid Calcium 8.3 L AST ALT Alkaline Phosphatase Troponin T Albumin HDL Cholesterol Ur Specific [place] Urine WBC (Auto) 12/25/19 12/25/19 12/25/19 04:12 08:41 14:43 WBC RBC 3.54 L Hgb 9.9 L Hct 30.8 L MCHC RDW 16.9 H Lymph % (Auto) [place] % (Auto) [place] # Seg Neutrophils % Seg Neutrophils # PT 16.2 H INR 1.33 H APTT D-Dimer Heparin Anti-Xa Level 0.10 L Sodium Potassium Chloride Carbon Dioxide BUN Creatinine Glucose POC Glucose Lactic Acid Calcium AST ALT Alkaline Phosphatase Troponin T Albumin HDL Cholesterol Ur Specific [place] Urine WBC (Auto) 12/25/19 12/25/19 12/26/19 14:43 21:06 04:19 WBC RBC Hgb 10.0 L Hct 31.1 L MCHC RDW Lymph % (Auto) [place] % (Auto) [place] # Seg Neutrophils % Seg Neutrophils # PT INR APTT D-Dimer Heparin Anti-Xa Level Sodium Potassium Chloride Carbon Dioxide BUN Creatinine Glucose POC Glucose 146 H Lactic Acid Calcium AST ALT Alkaline Phosphatase Troponin T 0.345 H* D Albumin HDL Cholesterol Ur Specific [place] Urine WBC (Auto) 12/26/19 12/26/19 04:19 07:49 WBC RBC Hgb Hct MCHC RDW Lymph % (Auto) [place] % (Auto) [place] # Seg Neutrophils % Seg Neutrophils # PT 21.7 H INR 1.95 H APTT D-Dimer Heparin Anti-Xa Level Sodium Potassium Chloride Carbon Dioxide BUN Creatinine Glucose 118 H POC Glucose Lactic Acid Calcium AST ALT Alkaline Phosphatase Troponin T Albumin HDL Cholesterol Ur Specific [place] Urine WBC (Auto)
--- NOTE | 2019-12-26 13:36 | Discharge Summary ---
Providers - Providers Date of Admission: 12/21/19 23:12 Attending physician: WARREN BANGURA MD 12/21/19 23:12 Consult to Physician [CONS] Routine Comment: Consulting Provider: SANDEE ORDONEZ Physician Instructions: Reason For Exam: cc 12/22/19 00:06 Consult to Physician [CONS] Routine Comment: Consulting Provider: ABA NETTLES Physician Instructions: Reason For Exam: pe with strainq 12/22/19 04:03 Consult to Physician [CONS] Routine Comment: Consulting Provider: KIMBERLEY ALLEN Physician Instructions: Reason For Exam: ab CE 12/22/19 04:10 Consult to Physician [CONS] Routine Comment: Consulting Provider: YUNG OLSON Physician Instructions: Reason For Exam: cholecy Consult to Physician [CONS] Routine Comment: Consulting Provider: COLTEN SALDIVAR Physician Instructions: Reason For Exam: arf, s/p contrast 12/25/19 08:50 Occupational Therapy Evaluate and Treat [CONS] Routine Comment: Reason For Exam: debility Physical Therapy Evaluation and Treat [CONS] Routine Comment: Reason For Exam: left knee pain 12/25/19 16:18 Physical Therapy Evaluation and Treat [CONS] Routine Comment: Reason For Exam: PT evaluation and treatment 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 Upon arrival he was complaining of chest pain to the emergency room physician however he denies having chest pain. He complains of abdominal pain in his mid abdomen which he describes as a dull pain, intermittent every 5 minutes, intensity 6/10, no radiation admits to nausea, no vomiting, diarrhea, fever, chills. He states that since October his legs have been swollen and painful, he saw his primary care physician and was given medication for symptoms but he cannot recall the name. He denies weight loss, recent travel, surgery, positive sedentary lifestyle. Patient was found to have massive pulmonary emboli for which he will be admitted for, vascular evaluation is pending * Patient underwent angiogram of the pulmonary artery and thrombolysis of the right and left pulmonary artery by Julia Uriostegui. Catheter was removed. It is not certain how this patient developed such massive PE despite having IVC filter. A full anticoagulation work-up is required outpatient has been discussed with the patient. We will switch to Eliquis as patient informs me that he has [employer] insurance. Have also advised the team about the status of insurance. Will discontinue heparin drip. * Anticipate discharge in a.m. if acute gout flareup is improving. Massive acute pulmonary emboli with right heart strain s/p pulmonary artery angiogram and thrombolysis of right and left pulm artery by EKOS thrombolysis catheter Now had removal of Bilateral Pulmonary Artery EKOS Thrombolysis Catheters and placement of [place] IVC Filter. On Heparin drip will discontinue and change to Eliquis feels better, currently no chest pain or SOB CT abdomen and pelvis poss pancreatits Surgery consulted Dr. Olson following Acute gout flare: Start on steroids. Right knee pain. Patient will obtain x-ray. Also due to bilateral lower extremity swelling ultrasound Doppler is pending. SIRS Started empiric antibiotics, follow cultures Acute kidney injury due to ATN Cont IV fluid, monitor kidney function, Resolved Nephrology following Discussed with Nephrology Abnormal cardiac enzymes, consulted cardiology Cardiologyfollowing outpatient stress test per cardiology. Hypokalemia replace po Hypernatremia now resolved NSTEMI type II NSVT. Cardiology following likely initiation of low-dose atenolol due to previously being held for bradycardia. hypertension Resumed norvasc hold Lisinopril because of VENU Hold atenolol because bradycardia. 12/24/19 Patient with massive acute pulmonary emboli with right heart strain s/p pulmonary artery angiogram and thrombolysis of right and left pulm artery by EKOS thrombolysis catheter, removal of Bilateral Pulmonary Artery EKOS Thrombolysis Catheters and placement of [place] IVC Filter. VENU improving Cr 1.8 today 12/26: I have discussed with the patient considering the PT/OT recommendation for SNF, but patient refused and wants to be discharge home. He understands its unsafe due to significant fall risk. Renal function improved. Disposition: -01 TO HOME OR SELFCARE Time spent for discharge: 35 MINS Core Measure Documentation - Palliative Care Palliative Care/ Comfort Measures: Not Applicable - Core Measures Any of the following diagnoses?: none Exam - Physical Exam Narrative exam: GEN: Not in acute distress, lying in bed HEENT: Normocephalic, atraumatic, Neck: supple, No JVD Lungs: Clear, no crackles, no wheeze heart;S1 and S2 reg, no murmurs, rubs or gallop Abd:soft, non tender, non distended, normal bowel sounds, Ext: No edema, no clubbing, no cyanosis, mild swelling the right knee. Tender to touch. Neuro: Awake,alert,oriented X3 , no focal sign - Constitutional Vitals: Temp Pulse Resp BP Pulse Ox 98.8 F 50 L 24 135/87 96 12/26/19 11:27 12/26/19 11:27 12/26/19 11:27 12/26/19 11:12/26/19 11:27 Plan Activity: advance as tolerated, fall precautions Diet: low fat Special Instructions: record daily weights, record daily BP diary, smoking cessation Follow up with: PRIMARY CARE, [Primary Care Provider] - 7 Days ABA NETTLES MD [Staff Physician] - 7 Days SHEA GUILLORY MD [Staff Physician] - 7 Days LILIAN OMALLEY MD [Staff Physician] - 7 Days YUNG OLSON MD [Staff Physician] - 7 Days Prescriptions: amLODIPine 10 mg PO DAILY #30 tablet Colchicine 0.6 mg PO QDAY #5 capsule Apixaban [Eliquis] 5 mg PO Q12HR #60 tablet Metoprolol [Lopressor TAB] 50 mg PO BID #60 tablet
--- NOTE | 2019-12-26 16:58 | Progress Note ---
Assessment and Plan Assessment and plan: 64-year-old man with a history of hypertension, gout comes emergency room with acute onset of shortness of breath today. Upon arrival he was complaining of chest pain to the emergency room physician however he denies having chest pain. He complains of abdominal pain in his mid abdomen which he describes as a dull pain, intermittent every 5 minutes, intensity 6/10, no radiation admits to nausea, no vomiting, diarrhea, fever, chills. He states that since October his legs have been swollen and painful, he saw his primary care physician and was given medication for symptoms but he cannot recall the name. He denies weight loss, recent travel, surgery, positive sedentary lifestyle. Patient was found to have massive pulmonary emboli for which he will be admitted for, vascular evaluation is pending * Patient underwent angiogram of the pulmonary artery and thrombolysis of the right and left pulmonary artery by E Gila. Catheter was removed. It is not certain how this patient developed such massive PE despite having IVC filter. A full anticoagulation work-up is required outpatient has been discussed with the patient. We will switch to Eliquis as patient informs me that he has [employer] insurance. Have also advised the team about the status of insurance. Will discontinue heparin drip. * Anticipate discharge in a.m. if acute gout flareup is improving. Massive acute pulmonary emboli with right heart strain s/p pulmonary artery angiogram and thrombolysis of right and left pulm artery by EKOS thrombolysis catheter Now had removal of Bilateral Pulmonary Artery EKOS Thrombolysis Catheters and placement of Luann IVC Filter. Continue Eliquis. Heparin discontinued. feels better, currently no chest pain or SOB CT abdomen and pelvis poss pancreatis Surgery consulted Dr. Olson following Debility: Patient will need placement to retirement facility for rehab. Acute gout flare: Start on steroids. Right knee pain. Patient will obtain x-ray. Also due to bilateral lower extremity swelling ultrasound Doppler is pending. SIRS Started empiric antibiotics, follow cultures Acute kidney injury due to ATN Cont IV fluid, monitor kidney function, Nephrology following Discussed with Nephrology Abnormal cardiac enzymes, consulted cardiology Cardiologyfollowing outpatient stress test per cardiology. Hypokalemia replace po Hypernatremia now resolved NSTEMI type II NSVT. Cardiology following likely initiation of low-dose atenolol due to p reviously being held for bradycardia. hypertension Resumed norvasc hold Lisinopril because of VENU Hold atenolol because bradycardia. 12/24/19 Patient with massive acute pulmonary emboli with right heart strain s/p pulmonary artery angiogram and thrombolysis of right and left pulm artery by EKOS thrombolysis catheter, removal of Bilateral Pulmonary Artery EKOS Thrombolysis Catheters and placement of Thomas IVC Filter. VENU improving Cr 1.8 today 12/24: Work-up as indicated above currently being worked up for DVT and also gout flare. Creatinine is improved. 12/25: 1. Discharge held following physical therapy evaluation patient will need SNF placement for rehab. Plan discussed with the patient he verbalized understanding. History Interval history: Patient seen and examined this morning r right knee pain is improved today. Patient was planned for discharge but unfortunately had difficulty ambulating and PT is recommending SNF. Hospitalist Physical - Physical exam Narrative exam: GEN: Not in acute distress, lying in bed HEENT: Normocephalic, atraumatic, Neck: supple, No JVD Lungs: Clear, no crackles, no wheeze heart;S1 and S2 reg, no murmurs, rubs or gallop Abd:soft, non tender, non distended, normal bowel sounds, Ext: No edema, no clubbing, no cyanosis, mild swelling the right knee. Still mildly tender but improved Neuro: Awake,alert,oriented X3 , no focal sign - Constitutional Vitals: Temp Pulse Resp BP Pulse Ox 98.8 F 50 L 24 135/87 96 12/26/19 11:27 12/26/19 11:27 12/26/19 11:27 12/26/19 11:27 12/26/19 11:27 General appearance: Present: no acute distress HEART Score - HEART Score Troponin: Troponin T 0.345 ng/mL (0.00-0.029) H* D 12/25/19 14:43 Results - Labs CBC & Chem 7: 12/26/19 04:19 12/26/19 04:19 Labs: Laboratory Last Values WBC 9.0 K/mm3 (4.5-11.0) 12/25/19 04:12 RBC 3.54 M/mm3 (3.65-5.03) L 12/25/19 04:12 Hgb 10.0 gm/dl (11.8-15.2) L 12/26/19 04:19 Hct 31.1 % (35.5-45.6) L 12/26/19 04:19 MCV 87 fl (84-94) 12/25/19 04:12 MCH 28 pg (28-32) 12/25/19 04:12 MCHC 32 % (32-34) 12/25/19 04:12 RDW 16.9 % (13.2-15.2) H 12/25/19 04:12 Plt Count 227 K/mm3 (140-440) 12/26/19 04:19 Lymph % (Auto) 21.3 % (13.4-35.0) 12/22/19 16:38 [place] % (Auto) 8.6 % (0.0-7.3) H 12/22/19 16:38 Eos % (Auto) 0.1 % (0.0-4.3) 12/22/19 16:38 Baso % (Auto) 0.2 % (0.0-1.8) 12/22/19 16:38 Lymph # 2.2 K/mm3 (1.2-5.4) 12/22/19 16:38 [place]ansom # 0.9 K/mm3 (0.0-0.8) H 12/22/19 16:38 Eos # 0.0 K/mm3 (0.0-0.4) 12/22/19 16:38 Baso # 0.0 K/mm3 (0.0-0.1) 12/22/19 16:38 Seg Neutrophils % 69.8 % (40.0-70.0) 12/22/19 16:38 Seg Neutrophils # 7.3 K/mm3 (1.8-7.7) 12/22/19 16:38 PT 21.7 Sec. (12.2-14.9) H 12/26/19 07:49 INR 1.95 (0.87-1.13) H 12/26/19 07:49 APTT 37.9 Sec. (24.2-36.6) H 12/22/19 21:17 Fibrinogen 330 mg/dl (211-480) 12/22/19 16:38 D-Dimer > 29772 ng/mlDDU (0-234) H 12/21/19 20:29 Heparin Anti-Xa Level 0.10 U.I./ml (0.3-0.7) L 12/25/19 14:43 Sodium 143 mmol/L (137-145) 12/26/19 04:19 Potassium 3.8 mmol/L (3.6-5.0) 12/26/19 04:19 Chloride 106.6 mmol/L (98-107) 12/26/19 04:19 Carbon Dioxide 22 mmol/L (22-30) 12/26/19 04:19 Anion Gap 18 mmol/L 12/26/19 04:19 BUN 14 mg/dL (9-20) 12/26/19 04:19 Creatinine 1.4 mg/dL (0.8-1.5) 12/26/19 04:19 Estimated GFR > 60 ml/min 12/26/19 04:19 BUN/Creatinine Ratio 10 % 12/26/19 04:19 Glucose 118 mg/dL (75-100) H 12/26/19 04:19 POC Glucose 146 (70-105) H 12/25/19 21:06 Hemoglobin A1c 4.9 % (4-6) 12/22/19 04:47 Lactic Acid 5.80 mmol/L (0.7-2.0) H* 12/22/19 04:47 Calcium 8.8 mg/dL (8.4-10.2) 12/26/19 04:19 Magnesium 2.10 mg/dL (1.7-2.3) 12/25/19 14:43 Total Bilirubin 0.30 mg/dL (0.1-1.2) 12/23/19 02:30 Direct Bilirubin < 0.2 mg/dL (0-0.2) 12/23/19 02:30 Indirect Bilirubin 0.1 mg/dL 12/23/19 02:30 AST 249 units/L (5-40) H 12/23/19 02:30 ALT 186 units/L (7-56) H 12/23/19 02:30 Alkaline Phosphatase 134 units/L (35-129) H 12/23/19 02:30 Troponin T 0.345 ng/mL (0.00-0.029) H* D 12/25/19 14:43 Total Protein 6.7 g/dL (6.3-8.2) 12/23/19 02:30 Albumin 3.1 g/dL (3.9-5) L 12/23/19 02:30 Albumin/Globulin Ratio 0.9 % 12/23/19 02:30 Triglycerides 124 mg/dL (2-149) 12/21/19 20: Cholesterol 162 mg/dL (50-199) 12/21/19 20:29 LDL Cholesterol Direct 122 mg/dL (50-130) 12/21/19 20: HDL Cholesterol 27 mg/dL (40-59) L 12/21/19 20: Cholesterol/HDL Ratio 6.00 % 12/21/19 20: Lipase 16 units/L (13-60) 12/23/19 02:30 Urine Color Kiya (Yellow) 12/22/19 17:55 Urine Turbidity Slightly-cloudy (Clear) 12/22/19 17:55 Urine pH 5.0 (5.0-7.0) 12/22/19 17:55 Ur Specific [place] 1.056 (1.003-1.030) H 12/22/19 17:55 Urine Protein 100 mg/dl mg/dL (Negative) 12/22/19 17:55 Urine Glucose (UA) 50 mg/dL (Negative) 12/22/19 17:55 Urine Ketones Neg mg/dL (Negative) 12/22/19 17:55 Urine Blood Sm (Negative) 12/22/19 17:55 Urine Nitrite Neg (Negative) 12/22/19 17:55 Urine Bilirubin Neg (Negative) 12/22/19 17:55 Urine Urobilinogen 2.0 mg/dL (<2.0) 12/22/19 17:55 Ur Leukocyte Esterase Neg (Negative) 12/22/19 17:55 Urine WBC (Auto) 8.0 /HPF (0.0-6.0) H 12/22/19 17:55 Urine RBC (Auto) 13.0 /HPF (0.0-6.0) 12/22/19 17:55 U Epithel Cells (Auto) 1.0 /HPF (0-13.0) 12/22/19 17:55 Urine Bacteria (Auto) 1+ /HPF (Negative) 12/22/19 17:55 Urine Mucus 1+ /HPF 12/22/19 17:55 Urine Opiates Screen Presumptive negative 12/22/19 17:55 Urine Methadone Screen Presumptive negative 12/22/19 17:55 Ur Barbiturates Screen Presumptive negative 12/22/19 17:55 Ur Phencyclidine Scrn Presumptive negative 12/22/19 17:55 Ur Amphetamines Screen Presumptive negative 12/22/19 17:55 U Benzodiazepines Scrn Presumptive positive 12/22/19 17:55 Urine Cocaine Screen Presumptive negative 12/22/19 17:55 U Marijuana (THC) Screen Presumptive negative 12/22/19 17:55 Drugs of Abuse Note Disclamer 12/22/19 17:55 Microbiology: Microbiology 12/21/19 20:39 Peripheral/Venous Blood Culture - Preliminary NO GROWTH AFTER 4 DAYS 12/21/19 20:36 Peripheral/Venous Blood Culture - Preliminary NO GROWTH AFTER 4 DAYS - Diagnostic Impressions Diagnostic Impressions: Echocardiogram 12/22/19 11:04 Transthoracic Echocardiogram Indication: Massive PE BP: 120/89 Conclusions *Global left ventricular wall motion and contractility are within normal limits. *The estimated ejection fraction is 55-60%. *Normal left ventricular diastolic filling is observed. *The right ventricle is mildly dilated. *The right ventricular global systolic function is moderately reduced. *The right atrium is mildly dilated. *There is mild aortic regurgitation. *There is mild mitral regurgitation. *There is evidence of mild pulmonary hypertension. *The pericardium appears normal. Findings Left Ventricle: The left ventricular chamber size is normal. There is no left ventricular hypertrophy. Global left ventricular wall motion and contractility are within normal limits. Global left ventricular systolic function is normal. The estimated ejection fraction is 55-60%. Normal left ventricular diastolic filling is observed. Left Atrium: The left atrium is moderately dilated. Right Ventricle: The right ventricle is mildly dilated. The right ventricular global systolic function is moderately reduced. Right Atrium: The right atrium is mildly dilated. Aortic Valve: The aortic valve is trileaflet. There is no evidence of aortic valve thickening. There is mild aortic regurgitation. There is no evidence of aortic stenosis. Mitral Valve: The mitral valve leaflets appear normal. There is mild mitral regurgitation. There is no evidence of mitral stenosis. Tricuspid Valve: The tricuspid valve leaflets are normal. There is mild tricuspid regurgitation. The right ventricular systolic pressure is calculated at 41 mmHg. There is evidence of mild pulmonary hypertension. There is no tricuspid stenosis. Pulmonic Valve: The pulmonic valve appears normal. There is mild pulmonic regurgitation. There is no pulmonic stenosis. Pericardium: The pericardium appears normal. Aorta: The aorta appears normal. Pulmonary Artery: The main pulmonary artery appears normal. Venous: The inferior vena cava is dilated. There is less than 50% respiratory change in the inferior vena cava dimension. Measurements Chambers 2D Name Value Normal Range IVSd (2D) 1.17 cm (0.6 - 1.1) LVPWd (2D) 1.18 cm (0.6 - 1.1) LVIDd (2D) 5.43 cm (3.7 - 5.6) LVIDs (2D) 3.85 cm (2 - 3.8) LV FS (2D) 29.11 % - EF Teichholz (2D) 55.36 % - Ao root diameter (2D) 3.7 cm (2 - 3.7) Volumes/Mass Name Value Normal Range LA ESV SP 4CH (A/L) 132.31 ml - LA ESV SP 2CH (A/L) 109.39 ml - LA ESV BP (A/L) 126.88 ml - LA ESV BP (A/L) index 55.65 ml/m2 - LA ESV SP 4CH (MOD) 124.42 ml - LA ESV SP 2CH (MOD) 100.28 ml - LA ESV BP (MOD) 115.23 ml - LA ESV BP (MOD) index 50.54 ml/m2 - LV EDV SP 4CH (MOD) 156.96 ml - LV ESV SP 4CH (MOD) 68.77 ml - EF SP 4CH (MOD) 56.18 % - LV EDV SP 2CH (MOD) 147.2 ml - LV ESV SP 2CH (MOD) 71.41 ml - EF SP 2CH (MOD) 51.49 % - LV EDV BP 152.04 ml - LV ESV BP 71.21 ml - BP EF (MOD) 53.16 % - Diastolic/Systolic Function Name Value Normal Range MV E-wave Vmax 0.47 m/sec - MV deceleration time 249.84 msec - MV A-wave Vmax 0.49 m/sec - MV E:A ratio 0.96 ratio - Aortic Valve Name Value Normal Range AV Vmax 1 m/sec - AV VTI 16.16 cm - AV peak gradient 4.01 mmHg - AV mean gradient 1.71 mmHg - LVOT diameter 2.63 cm - LVOT Vmax 0.66 m/sec - LVOT VTI 11.01 cm - LVOT peak gradient 1.77 mmHg - LVOT mean gradient 0.77 mmHg - SV LVOT 59.84 ml - NATHALIA (continuity Vmax) 3.61 cm2 - NATHALIA (continuity VTI) 3.7 cm2 - AR PHT 744.14 msec - AR peak gradient 97.45 mmHg - Ascending Ao 3.86 cm - Tricuspid Valve Name Value Normal Range TV E-wave Vmax 0.47 m/sec - TR Vmax 2.91 m/sec - TR peak gradient 33.85 mmHg - RAP 8 mmHg - RVSP 41 mmHg - Pulmonic Valve/Qp:Qs Name Value Normal Range OR end-diastolic Vmax 0.99 m/sec - RVOT Vmax 0.39 m/sec - RVOT VTI 9.53 cm - RVOT peak gradient 0.61 mmHg - PV acceleration time 76.12 msec - Summers/IV: Voiding Method Urinal IV Catheter Type [Right INT / Saline Lock Antecubital] IV Catheter Type [Left Hand] INT / Saline Lock Active Medications - Current Medications Current Medications: Generic Name Dose Route Start Last Admin Trade Name Freq PRN Reason Stop Dose Admin Acetaminophen 650 mg 12/21/19 23:12 Tylenol PO Q4H PRN Pain MILD(1-3)/Fever >100.5/VICENTE Acetaminophen/Hydrocodone Bitart 2 each 12/21/19 23:44 12/25/19 17:45 [place] 5/325 PO 2 each Q6H PRN Administration Pain, Moderate (4-6) Amlodipine Besylate 10 mg 12/23/19 23:00 12/26/19 10:53 Amlodipine PO 10 mg DAILY ANGEL Administration Apixaban 10 mg 12/25/19 10:00 12/26/19 10:53 Eliquis PO 12/31/19 22:01 10 mg Q12HR ANGEL Administration Protocol Colchicine 0.6 mg 12/25/19 10:00 12/26/19 10:53 Colchicine PO 0.6 mg QDAY ANGEL Administration Cyclobenzaprine HCl 10 mg 12/25/19 09:30 12/25/19 16:19 Flexeril PO 10 mg TID PRN Administration Muscle Spasm Sodium Chloride 1,000 mls @ 75 mls/hr 12/23/19 17:00 12/26/19 10:52 Nacl 0.9% 1000 Ml IV 75 mls/hr DIRECT ANGEL Administration Lisinopril 40 mg 12/25/19 10:00 12/26/19 10:53 Zestril PO 40 mg QDAY ANGEL Administration Metoprolol Tartrate 50 mg 12/26/19 22:00 Metoprolol PO BID ANGEL Morphine Sulfate 4 mg 12/21/19 23:44 Morphine IV Q4H PRN Pain , Severe (7-10) Morphine Sulfate 2 mg 12/21/19 23:44 Morphine IV Q4H PRN Pain, Moderate (4-6) Ondansetron HCl 4 mg 12/21/19 23:44 12/22/19 01:22 Zofran IV 4 mg Q8H PRN Administration Nausea And Vomiting Prednisone 40 mg 12/25/19 10:00 12/26/19 10:53 Deltasone PO 40 mg QDAY ANGEL Administration Sodium Chloride 10 ml 12/22/19 10:00 12/26/19 10:54 Sodium Chloride Flush Syringe 10 Ml IV 10 ml BID ANGEL Administration Sodium Chloride 10 ml 12/21/19 23:12 Sodium Chloride Flush Syringe 10 Ml IV PRN PRN LINE FLUSH
[2019-12-26] MEDS: HYDROcodone/ACETAMINOPHEN 5-325 MG TAB PO PRN (17:15)
--- NOTE | 2019-12-26 19:23 | Event Note ---
Date: 12/26/19 Patient is doing well from a breathing standpoint. Venous duplex with nonocclusive DVT of bilateral Femoral, Popliteal, and tibial veins. Provided the patient with discount drug cards for Eliquis. Instructed him on the importance of being compliant with his anticoagulation as well as following up with me to have his IVC filter removed within the next 2-3 months. The patient expressed understanding and agrees with the plan.
[2019-12-26] MEDS: METOPROLOL TARTRATE 50 MG TAB PO SCH (21:25)
[2019-12-27 06:55] LABS: BUN/Creatinine Ratio 13; Blood Urea Nitrogen 14 mg/dL (9-20); Calcium 8.8 mg/dL (8.4-10.2); Hemolysis Index 2
[2019-12-27 08:45] LABS: INR 1.66 (0.87-1.13)
[2019-12-27] MEDS ORDERED: POTASSIUM CHLORIDE ER 20 MEQ TAB PO ONE (09:00)
[2019-12-27] MEDS: COLCHICINE 0.6 MG CAP PO SCH (10:21)
[2019-12-27] MEDS: APIXABAN 5 MG TAB PO SCH (10:21)
[2019-12-27] MEDS: predniSONE 20 MG TAB PO SCH (10:22)
[2019-12-27] MEDS: METOPROLOL TARTRATE 50 MG TAB PO SCH (10:22)
[2019-12-27] MEDS: amLODIPine 10 MG TAB PO SCH (10:25)
[2019-12-27] MEDS: LISINOPRIL 40 MG TAB PO SCH (10:28)
--- NOTE | 2019-12-27 12:08 | Progress Note ---
Assessment and Plan 64 y/o male with bilateral PE s/p EKOS for catheter directed thrombolysis No objection to discharge pulmonary fernandez 1. Currently on oral anticoagulation. 2. All others per primary team 3. Follow up any renal recs 4. Will need full hypercoag work up. 5. Will need walk test prior to discharge as well. Subjective Date of service: 12/27/19 Principal diagnosis: PE Interval history: No acute events. Awaiting PT eval to see if SNF is needed. Pulm status stable and should be weaned off oxygen. Objective Vital Signs - 12hr 12/27/19 12/27/19 12/27/19 04:46 07:49 10:22 Temperature 98.0 F 98.2 F Pulse Rate 58 L 60 60 Respiratory 18 19 Rate Blood Pressure 160/94 168/94 168/94 O2 Sat by Pulse 97 97 Oximetry 12/27/19 12/27/19 10:25 10:28 Temperature Pulse Rate 60 60 Respiratory Rate Blood Pressure 168/94 168/94 O2 Sat by Pulse Oximetry Constitutional: no acute distress, alert Eyes: non-icteric ENT: oropharynx moist Neck: supple Effort: normal Ascultation: Bilateral: clear Percussion: Bilateral: not dull Tactile fremitus: Bilateral: normal Cardiovascular: regular rate and rhythm (no mrg) Gastrointestinal: normoactive bowel sounds, soft, non-tender, non-distended Integumentary: normal Extremities: no cyanosis, pink and warm, other (2+ bilateral LE edema, R > L) Neurologic: normal mental status, non-focal exam, pupils equal and round, CN II- XII normal Psychiatric: mood appropriate, affect normal CBC and BMP: 12/26/19 04:19 12/27/19 04:58 ABG, PT/INR, D-dimer: PT/INR, D-dimer PT 19.2 Sec. (12.2-14.9) H 12/27/19 08:17 INR 1.66 (0.87-1.13) H 12/27/19 08:17 D-Dimer > 38621 ng/mlDDU (0-234) H 12/21/19 20:29 Abnormal lab findings: Abnormal Labs 12/21/19 12/21/19 12/21/19 00:58 00:58 20:19 WBC 14.9 H RBC Hgb 11.2 L Hct 34.7 L MCHC RDW 16.8 H Lymph % (Auto) 8.2 L Miner % (Auto) Miner # Seg Neutrophils % 87.2 H Seg Neutrophils # 13.0 H PT INR APTT D-Dimer Heparin Anti-Xa Level Sodium Potassium Chloride Carbon Dioxide 16 L BUN 22 H Creatinine 2.3 H Glucose 203 H POC Glucose 232 H Lactic Acid Calcium AST ALT Alkaline Phosphatase Troponin T Albumin HDL Cholesterol Ur Specific [place] Urine WBC (Auto) 12/21/19 12/21/19 12/21/19 20:29 20:29 20:29 WBC 12.1 H RBC Hgb 11.5 L Hct MCHC 31 L RDW 16.9 H Lymph % (Auto) Min[place] % (Auto) Miner # Seg Neutrophils % 81.1 H Seg Neutrophils # 9.8 H PT INR APTT D-Dimer > 98066 H Heparin Anti-Xa Level Sodium Potassium 3.3 L Chloride Carbon Dioxide 16 L BUN Creatinine 2.1 H Glucose 292 H POC Glucose Lactic Acid Calcium AST ALT Alkaline Phosphatase 178 H Troponin T 0.241 H* Albumin 3.6 L HDL Cholesterol 27 L Ur Specific [place] Urine WBC (Auto) 12/21/19 12/21/19 12/21/19 20:29 20:36 23:59 WBC RBC Hgb Hct MCHC RDW Lymph % (Auto) Miner % (Auto) Miner # Seg Neutrophils % Seg Neutrophils # PT 16.5 H INR 1.36 H APTT D-Dimer Heparin Anti-Xa Level Sodium Potassium Chloride Carbon Dioxide BUN Creatinine Glucose POC Glucose Lactic Acid 7.80 H* Calcium AST ALT Alkaline Phosphatase Troponin T 0.570 H* D Albumin HDL Cholesterol Ur Specific [place] Urine WBC (Auto) 12/21/19 12/22/19 12/22/19 23:59 04:47 04:47 WBC RBC Hgb Hct MCHC RDW Lymph % (Auto) Min[place] % (Auto) Miner # Seg Neutrophils % Seg Neutrophils # PT 18.5 H INR 1.58 H APTT 103.1 H* D-Dimer Heparin Anti-Xa Level 1.39 H Sodium Potassium Chloride Carbon Dioxide BUN Creatinine Glucose POC Glucose Lactic Acid 5.80 H* Calcium AST ALT Alkaline Phosphatase Troponin T Albumin HDL Cholesterol Ur Specific [place] Urine WBC (Auto) 12/22/19 12/22/19 12/22/19 04:47 04:47 10:35 WBC 13.8 H 12.7 H RBC Hgb 11.4 L 11.1 L Hct 34.8 L MCHC RDW 16.9 H 16.7 H Lymph % (Auto) 12.0 L [place] % (Auto) 8.3 H Miner # 1.1 H Seg Neutrophils % 82.6 H 71.5 H Seg Neutrophils # 11.4 H 9.1 H PT INR APTT D-Dimer Heparin Anti-Xa Level Sodium Potassium Chloride 108.4 H Carbon Dioxide 14 L BUN 24 H Creatinine 2.3 H Glucose 160 H POC Glucose Lactic Acid Calcium AST ALT Alkaline Phosphatase Troponin T Albumin HDL Cholesterol Ur Specific [place] Urine WBC (Auto) 12/22/19 12/22/19 12/22/19 16:38 17:55 21:17 WBC RBC Hgb 10.8 L 10.5 L Hct 33.4 L 32.3 L MCHC RDW 17.1 H Lymph % (Auto) Miner % (Auto) 8.6 H Miner # 0.9 H Seg Neutrophils % Seg Neutrophils # PT INR APTT D-Dimer Heparin Anti-Xa Level Sodium Potassium Chloride Carbon Dioxide BUN Creatinine Glucose POC Glucose Lactic Acid Calcium AST ALT Alkaline Phosphatase Troponin T Albumin HDL Cholesterol Ur Specific [place] 1.056 H Urine WBC (Auto) 8.0 H 12/22/19 12/23/19 12/23/19 21:17 02:30 02:30 WBC RBC Hgb 10.3 L Hct 32.3 L MCHC RDW 17.3 H Lymph % (Auto) Min[place] % (Auto) Miner # Seg Neutrophils % Seg Neutrophils # PT 16.5 H INR 1.36 H APTT 37.9 H D-Dimer Heparin Anti-Xa Level Sodium 147 H Potassium Chloride 109.1 H Carbon Dioxide BUN 32 H Creatinine 2.5 H Glucose 133 H POC Glucose Lactic Acid Calcium AST 249 H ALT 186 H Alkaline Phosphatase 134 H Troponin T Albumin 3.1 L HDL Cholesterol Ur Specific [place] Urine WBC (Auto) 12/24/19 12/24/19 12/24/19 02:46 02:46 02:46 WBC RBC Hgb 10.4 L Hct 32.2 L MCHC RDW 17.1 H Lymph % (Auto) Min[place] % (Auto) Miner # Seg Neutrophils % Seg Neutrophils # PT INR APTT D-Dimer Heparin Anti-Xa Level 0.22 L Sodium Potassium 3.4 L Chloride Carbon Dioxide 21 L BUN 25 H Creatinine 1.8 H Glucose POC Glucose Lactic Acid Calcium 8.3 L AST ALT Alkaline Phosphatase Troponin T Albumin HDL Cholesterol Ur Specific [place] Urine WBC (Auto) 12/25/19 12/25/19 12/25/19 04:12 08:41 14:43 WBC RBC 3.54 L Hgb 9.9 L Hct 30.8 L MCHC RDW 16.9 H Lymph % (Auto) Miner % (Auto) Miner # Seg Neutrophils % Seg Neutrophils # PT 16.2 H INR 1.33 H APTT D-Dimer Heparin Anti-Xa Level 0.10 L Sodium Potassium Chloride Carbon Dioxide BUN Creatinine Glucose POC Glucose Lactic Acid Calcium AST ALT Alkaline Phosphatase Troponin T Albumin HDL Cholesterol Ur Specific [place] Urine WBC (Auto) 12/25/19 12/25/19 12/26/19 14:43 21:06 04:19 WBC RBC Hgb 10.0 L Hct 31.1 L MCHC RDW Lymph % (Auto) [place] % (Auto) Miner # Seg Neutrophils % Seg Neutrophils # PT INR APTT D-Dimer Heparin Anti-Xa Level Sodium Potassium Chloride Carbon Dioxide BUN Creatinine Glucose POC Glucose 146 H Lactic Acid Calcium AST ALT Alkaline Phosphatase Troponin T 0.345 H* D Albumin HDL Cholesterol Ur Specific [place] Urine WBC (Auto) 12/26/19 12/26/19 12/27/19 04:19 07:49 04:58 WBC RBC Hgb Hct MCHC RDW Lymph % (Auto) Min[place] % (Auto) Miner # Seg Neutrophils % Seg Neutrophils # PT 21.7 H INR 1.95 H APTT D-Dimer Heparin Anti-Xa Level Sodium Potassium 3.3 L Chloride 108.6 H Carbon Dioxide BUN Creatinine Glucose 118 H 113 H POC Glucose Lactic Acid Calcium AST ALT Alkaline Phosphatase Troponin T Albumin HDL Cholesterol Ur Specific [place] Urine WBC (Auto) 12/27/19 08:17 WBC RBC Hgb Hct MCHC RDW Lymph % (Auto) Min[place] % (Auto) Miner # Seg Neutrophils % Seg Neutrophils # PT 19.2 H INR 1.66 H APTT D-Dimer Heparin Anti-Xa Level Sodium Potassium Chloride Carbon Dioxide BUN Creatinine Glucose POC Glucose Lactic Acid Calcium AST ALT Alkaline Phosphatase Troponin T Albumin HDL Cholesterol Ur Specific [place] Urine WBC (Auto)
[2019-12-27 12:38] VITALS: BP 165/91
--- NOTE | 2019-12-27 12:52 | Discharge Summary ---
Providers - Providers Date of Admission: 12/21/19 23:12 Attending physician: WARREN BANGURA MD 12/21/19 23:12 Consult to Physician [CONS] Routine Comment: Consulting Provider: SANDEE ORDONEZ Physician Instructions: Reason For Exam: cc 12/22/19 00:06 Consult to Physician [CONS] Routine Comment: Consulting Provider: ABA NETTLES Physician Instructions: Reason For Exam: pe with strainq 12/22/19 04:03 Consult to Physician [CONS] Routine Comment: Consulting Provider: KIMBERLEY ALLEN Physician Instructions: Reason For Exam: ab CE 12/22/19 04:10 Consult to Physician [CONS] Routine Comment: Consulting Provider: YUNG OLSON Physician Instructions: Reason For Exam: cholecy Consult to Physician [CONS] Routine Comment: Consulting Provider: COLTEN SALDIVAR Physician Instructions: Reason For Exam: arf, s/p contrast 12/25/19 08:50 Occupational Therapy Evaluate and Treat [CONS] Routine Comment: Reason For Exam: debility Physical Therapy Evaluation and Treat [CONS] Routine Comment: Reason For Exam: left knee pain 12/25/19 16:18 Physical Therapy Evaluation and Treat [CONS] Routine Comment: Reason For Exam: PT evaluation and treatment Primary care physician: [employer] Hospitalization Condition: Stable Hospital course: 64-year-old man with a history of hypertension, gout comes emergency room with acute onset of shortness of breath today. Upon arrival he was complaining of chest pain to the emergency room physician however he denies having chest pain. He complains of abdominal pain in his mid abdomen which he describes as a dull pain, intermittent every 5 minutes, intensity 6/10, no radiation admits to nausea, no vomiting, diarrhea, fever, chills. He states that since October his legs have been swollen and painful, he saw his primary care physician and was given medication for symptoms but he cannot recall the name. He denies weight loss, recent travel, surgery, positive sedentary lifestyle. Patient was found to have massive pulmonary emboli for which he will be admitted for, vascular evaluation is pending * Patient underwent angiogram of the pulmonary artery and thrombolysis of the right and left pulmonary artery by Julia Uriostegui. Catheter was removed. It is not certain how this patient developed such massive PE despite having IVC filter. A full anticoagulation work-up is required outpatient has been discussed with the patient. We will switch to Eliquis as patient informs me that he has [employer] insurance. Have also advised the team about the status of insurance. Will discontinue heparin drip. * Anticipate discharge in a.m. if acute gout flareup is improving. Massive acute pulmonary emboli with right heart strain s/p pulmonary artery angiogram and thrombolysis of right and left pulm artery by EKOS thrombolysis catheter Now had removal of Bilateral Pulmonary Artery EKOS Thrombolysis Catheters and placement of Luann IVC Filter. On Heparin drip will discontinue and change to Eliquis feels better, currently no chest pain or SOB CT abdomen and pelvis poss pancreatits Surgery consulted Dr. Olson following Acute gout flare: Start on steroids. Right knee pain. Patient will obtain x-ray. Also due to bilateral lower extremity swelling ultrasound Doppler is pending. SIRS Started empiric antibiotics, follow cultures Acute kidney injury due to ATN Cont IV fluid, monitor kidney function, Resolved Nephrology following Discussed with Nephrology Abnormal cardiac enzymes, consulted cardiology Cardiologyfollowing outpatient stress test per cardiology. Hypokalemia replace po Hypernatremia now resolved NSTEMI type II NSVT. Cardiology following likely initiation of low-dose atenolol due to previously being held for bradycardia. hypertension Resumed norvasc hold Lisinopril because of VENU Hold atenolol because bradycardia. 12/24/19 Patient with massive acute pulmonary emboli with right heart strain s/p pulmonary artery angiogram and thrombolysis of right and left pulm artery by EKOS thrombolysis catheter, removal of Bilateral Pulmonary Artery EKOS Thrombolysis Catheters and placement of Luann IVC Filter. VENU improving Cr 1.8 today 12/26: I have discussed with the patient considering the PT/OT recommendation for SNF, but patient refused and wants to be discharge home. He understands its unsafe due to significant fall risk. Renal function improved. Disposition: -01 TO HOME OR SELFCARE Time spent for discharge: 35 MINS Core Measure Documentation - Palliative Care Palliative Care/ Comfort Measures: Not Applicable - Core Measures Any of the following diagnoses?: none Exam - Physical Exam Narrative exam: GEN: Not in acute distress, lying in bed HEENT: Normocephalic, atraumatic, Neck: supple, No JVD Lungs: Clear, no crackles, no wheeze heart;S1 and S2 reg, no murmurs, rubs or gallop Abd:soft, non tender, non distended, normal bowel sounds, Ext: No edema, no clubbing, no cyanosis, mild swelling the right knee. Tender to touch. Neuro: Awake,alert,oriented X3 , no focal sign - Constitutional Vitals: Temp Pulse Resp BP Pulse Ox 98.8 F 50 L 24 135/87 96 12/26/19 11:27 12/26/19 11:27 12/26/19 11:27 12/26/19 11:12/26/19 11:27 Plan Activity: advance as tolerated, fall precautions Diet: low fat Special Instructions: record daily weights, record daily BP diary, smoking cessation Follow up with: DAGOBERTO RICHTER MD [Primary Care Provider] - 7 Days ABA NETTLES MD [Staff Physician] - 7 Days SHEA GUILLORY MD [Staff Physician] - 7 Days LILIAN OMALLEY MD [Staff Physician] - 7 Days YUNG OLSON MD [Staff Physician] - 7 Days Prescriptions: amLODIPine 10 mg PO DAILY #30 tablet Colchicine 0.6 mg PO QDAY #5 capsule Apixaban [Eliquis] 5 mg PO Q12HR #60 tablet Metoprolol [Lopressor TAB] 50 mg PO BID #60 tablet Disposition: [id number] HOME UNDER HOME [facility] Core Measure Documentation - Palliative Care Palliative Care/ Comfort Measures: Not Applicable - Core Measures Any of the following diagnoses?: none Exam - Constitutional Vitals: Temp Pulse Resp BP Pulse Ox 98.2 F 66 18 165/91 95 12/27/19 10:41 12/27/19 10:41 12/27/19 10:41 12/27/19 10:41 12/27/19 10:41 Plan Follow up with: LILIAN OMALLEY MD [Staff Physician] - 7 Days YUNG OLSON MD [Staff Physician] - 7 Days DAGOBERTO RICHTER MD [Primary Care Provider] - 7 Days ABA NETTLES MD [Staff Physician] - 7 Days SHEA GUILLORY MD [Staff Physician] - 7 Days Prescriptions: amLODIPine 10 mg PO DAILY #30 tablet Colchicine 0.6 mg PO QDAY #5 capsule Apixaban [Eliquis] 5 mg PO Q12HR #60 tablet Metoprolol [Lopressor TAB] 50 mg PO BID #60 tablet
--- NOTE | 2019-12-27 13:38 | Progress Note ---
Assessment and Plan Cont Eliquis. Cont other present cardiac mgmt. Currently stable cardiac status. Pt may be discharged from a Cardiology standpoint. F/u with Dr. Kole Gerber in our [place] office on 01/18/2020 @ 2:15pm ([phone]). Plan for OP stress test. Further optimization of BP as OP as well. Pt seen in conjunction with Dr. Lam, who agrees with the assessment and plan of care. - Patient Problems (1) Acute pulmonary embolism Current Visit: Yes Status: Acute Plan to address problem: Massive acute bilateral PE with CT evidence of right heart strain, s/p EKOS (2) DVT (deep venous thrombosis) Current Visit: Yes Status: Acute (3) VENU (acute kidney injury) Current Visit: Yes Status: Acute (4) NSTEMI (non-ST elevated myocardial infarction) Current Visit: Yes Status: Acute Plan to address problem: Type 2 - in the setting of acute PE and VENU (5) NSVT (nonsustained ventricular tachycardia) Current Visit: No Status: Acute (6) Abnormal CT of the abdomen Current Visit: Yes Status: Acute Plan to address problem: Gen Surg recs noted (7) HTN (hypertension) Current Visit: Yes Status: Chronic Qualifiers: Hypertension type: essential hypertension Qualified Code(s): I10 - Essential (primary) hypertension (8) Gout Current Visit: Yes Status: Chronic Subjective Date of service: 12/27/19 Principal diagnosis: PE Interval history: Pt lying in bed comfortably upon exam. No current cardiac complaints. Tele reviewed - NSR 70s with occasional PACs/PVCs; no acute events noted. Objective Last Vital Signs Temp 98.2 F 12/27/19 10:41 Pulse 66 12/27/19 10:41 Resp 18 12/27/19 10:41 BP 165/91 12/27/19 10:41 Pulse Ox 95 12/27/19 10:41 - Physical Examination General: No Apparent Distress HEENT: Positive: EOMI, Normocephaly, Mucus Membranes Moist Neck: Positive: neck supple, trachea midline. Negative: JVD/HJR Cardiac: Positive: Reg Rate and Rhythm, S1/S2 Lungs: Positive: clear to auscultation (bilaterally) Neuro: Positive: Grossly Intact, Motor Function Intact, Coordination Normal, Sensory Function Intact Abdomen: Positive: Soft, Active Bowel Sounds. Negative: Tender Skin: Negative: Rash, Wound Musculoskeletal: No Pain, Normal Range of Motion, other (right knee swelling) Extremities: Present: upper extr. pulses, lower extr. pulses - Labs and Meds Coagulation 12/27/19 Range/Units 08:17 PT 19.2 H (12.2-14.9) Sec. INR 1.66 H (0.87-1.13) Comprehensive Metabolic Panel 12/27/19 Range/Units 04:58 Sodium 143 (137-145) mmol/L Potassium 3.3 L (3.6-5.0) mmol/L Chloride 108.6 H (98-107) mmol/L Carbon Dioxide 22 (22-30) mmol/L BUN 14 (9-20) mg/dL Creatinine 1.1 (0.8-1.5) mg/dL Glucose 113 H (75-100) mg/dL Calcium 8.8 (8.4-10.2) mg/dL - Imaging and Cardiology EKG: report reviewed, image reviewed Echo: report reviewed (EF 55-60%, RV mildly dilated, RV systolic function mod reduced, RA mildy dilated, mild AR, mild MR, mild pulm HTN with RVSP 41mmHg ) - Telemetry EKG Rhythm: Sinus Rhythm - EKG Sinus rhythms and dysrhythmias: sinus tachycardia Ventricular dysrhythmias: ventricular premature com Repolarization changes or abnormalities: Q-T interval prolongation
== END 2019-12-27 16:34 | disposition home health service (06) | DRG 166 ==
LOC: ED 19:16 → CC1 23:12 → 4A 12-23 12:28
PROVIDERS: ADMIT Internal Medicine; ATTEND Internal Medicine
PROC: 06H03DZ Insertion of Intraluminal Device into Inferior Vena Cava, Percutaneous Approach (ICD-10-PCS; principal; 2019-12-22)
PROC: 06H03DZ Insertion of Intraluminal Device into Inferior Vena Cava, Percutaneous Approach (ICD-10-PCS; 2019-12-22)
PROC: 6A751Z7 Ultrasound Therapy of Other Vessels, Multiple (ICD-10-PCS; 2019-12-22)
PROC: 3E06317 Introduction of Other Thrombolytic into Central Artery, Percutaneous Approach (ICD-10-PCS; 2019-12-22)
PROC: B54BZZA Ultrasonography of Right Lower Extremity Veins, Guidance (ICD-10-PCS; 2019-12-22)
PROC: B31 Imaging, Upper Arteries, Fluoroscopy (ICD-10-PCS; 2019-12-22)
PROC: B5191ZZ Fluoroscopy of Inferior Vena Cava using Low Osmolar Contrast (ICD-10-PCS; 2019-12-22)
DX: I26.09 Other pulmonary embolism with acute cor pulmonale (principal); I21.A1 Myocardial infarction type 2; N17.0 Acute kidney failure with tubular necrosis; K85.90 Acute pancreatitis without necrosis or infection, unspecified; R65.10 Systemic inflammatory response syndrome (SIRS) of non-infectious origin without acute organ dysfunction; E87.2 Acidosis; E87.0 Hyperosmolality and hypernatremia; I47.2 Ventricular tachycardia; R79.89 Other specified abnormal findings of blood chemistry; M10.9 Gout, unspecified; I95.9 Hypotension, unspecified; Z82.49 Family history of ischemic heart disease and other diseases of the circulatory system; I10 Essential (primary) hypertension; E87.6 Hypokalemia
CPT/HCPCS: 36415; 37191; 37211; 37214; 71045; 71275; 74176; 80048; 80053; 80061; 80076; 80307; 81001; 82140; 82962; 83036; 83690; 83735; 84484; 85014; 85018; 85025; 85027; 85049; 85379; 85384; 85520; 85610; 85730; 87040; 87086; 93005; 93306; 93970; 94760; G0378; C1757; C1769; C1880; C1894; J0690; J0692; J1644; J2250; J2270; J2405; J2543; J2997; J3010; J7030; J7040; J7050; J7070; J7512; Q9967